=== PATIENT | female | born 1935 | race Caucasian/White ===

== ENCOUNTER 2017-09-04 16:13 | Inpatient (IN) ==
[2017-09-04] MEDS ORDERED: Acetaminophen 325 MG TABLET PO PRN (18:58)
[2017-09-04] MEDS ORDERED: Ondansetron 4 MG/2 ML VIAL IVP PRN (18:58)
[2017-09-04] MEDS ORDERED: *HR* Promethazine 25 MG/ML VIAL IVP PRN (18:58)
[2017-09-04] MEDS ORDERED: Naloxone 0.4 MG/ML INJ IVP PRN (18:58)
--- NOTE | 2017-09-04 19:14 | Internal Med History&Physical ---
Date of Encounter: 09/04/17 Time of Encounter: 18:30 Internal Medicine - H&P: HPI Chief complaint: fall with Left femur fx Admitted From: Emergency Dept Plans for Post Hospital Care: Home History of present illness: Ms. Leahy is a 82 year old female with known hypertension, hyperlipidemia, COPD , past history of smoking and status post bilateral hip replacement who presented to [facility] emergency room after sustaining a fall last night with left leg pain. Patient had a further workup done there left leg x-ray showed a minimally displaced obliquely oriented sub trochanteric fracture of left femur. They did talk to our Ortho Dr. Butler who suggested to admit under hospitalist service and he will do surgery in AM. Pt denied any CP / SOB. Her pain was well controlled with medication. Past Med Surg Social Fam HX - Past Medical History Medical history: COPD, hypertension Additional medical history: spinal stenosis, Psychiatric history: depression - Past Surgical History Surgical History: cholecystectomy Additional surgical history: explor lap, spinal sx, left foot sx x2, bilateral hip replacemnts - Social History Smoking Status: Former smoker Smokeless Tobacco Status: No Alcohol use: occasionally Drug use: none - Additional Family History Additional family history: Family hsitory reviewed and non contribuitory to current problem. Internal Medicine - H&P: Meds 3 Allergy/AdvReac Type Severity Reaction Status Date / Time Penicillins Allergy Hives Unverified 08/03/17 15:34 Sulfa (Sulfonamide Allergy Hives Unverified 08/03/17 15:34 Antibiotics) All Systems PM: A 10-system review of systems was performed and is negative for pertinent findings except as documented above in the HPI. Review of systems: All the systems are reviewed everything is benign except the systems and symptoms I mentioned in the history of present illness - Head Head exam: Present: atraumatic, normal inspection - Neck Neck exam general surgery: Present: supple - Respiratory Respiratory exam: Present: decreased breath sounds, rales, respiratory distress. Absent: rhonchi, wheezes - Cardiovascular Cardiovascular exam: Present: RRR, +S1, +S2. Absent: tachycardia - GI/Abdominal GI/Abdominal exam: Present: normal bowel sounds, soft. Absent: rebound, rigid, tenderness - Extremities Exam Extremities exam: Present: tenderness. Absent: calf tenderness, pedal edema - Back Exam Back exam: Absent: CVA tenderness (L), CVA tenderness (R) - Neurological Exam Neurological exam: Present: alert, oriented X3 - Psychiatric Psychiatric exam: Present: normal affect, normal mood - Skin Skin exam: Absent: rash Internal Med - H&P Results - Labs CBC & Chem 7: 09/05/17 04:16 09/05/17 04:16 - Assessment and plan (1) Left displaced femoral neck fracture Current Visit: Yes Status: Acute Assessment and plan: Place the pt into Med Surg for observation Ortho Dr. Butler already consulted by [facility] ER staff NPO after mid night Started on PO analgesics PRN Will obtain EKG for pre op work up Will obtain 2 D Echo too since pt have some ?? CHF Will get pre op clearence CXR also ordered lab work CBC, BMP (2) HTN (hypertension) Current Visit: Yes Status: Acute Assessment and plan: Resumed all home meds Qualifiers: Hypertension type: essential hypertension Qualified Code(s): I10 - Essential (primary) hypertension (3) HLD (hyperlipidemia) Current Visit: Yes Status: Acute Assessment and plan: resumed home med statin Qualifiers: Hyperlipidemia type: unspecified Qualified Code(s): E78.5 - Hyperlipidemia , unspecified (4) COPD (chronic obstructive pulmonary disease) Current Visit: Yes Status: Acute Assessment and plan: not in exacerbation resumed home INH Qualifiers: COPD type: unspecified COPD Qualified Code(s): J44.9 - Chronic obstructive pulmonary disease, unspecified - Time Spent With Patient Total time spent is greater than 50% in coordination of care (as documented) at patient's floor/unit and/or counseling patient:
[2017-09-04 19:29] LABS: Basophils % 0.2 %; Eosinophils # 0.1 K/mcL (0.0-0.6); Eosinophils % 0.8 %; Hematocrit 40.5 % (35.3-44.9); Hemoglobin 13.6 g/dL (11.5-15.4); Immature Granulocytes % 0.3 % (0-4); Lymphocytes # 1.8 K/mcL (0.6-4.6); Lymphocytes % 14.7 %; Mean Corpuscular HGB Conc 33.6 g/dL (31.6-35.5); Mean Corpuscular Hemoglobin 31.1 pg (28.0-33.3); Mean Corpuscular Volume 92.7 fL (83.0-100.0); Mean Platelet Volume 8.4 fL (9.4-12.4); Monocytes # 1.5 K/mcL (0.0-1.3); Monocytes % 12.3 %; Neutrophils # 8.6 K/mcL (1.6-8.9); Platelet Count 216 K/mcL (140-400); Red Blood Count 4.37 M/mcL (3.82-4.97); Red Cell Distribution Width 13.3 % (11.5-14.5); Segmented Neutrophils % 71.7 %
[2017-09-04 19:53] LABS: BUN/Creatinine Ratio 15 (6-26); Blood Urea Nitrogen 9 mg/dL (8-23); Calcium 9.4 mg/dL (8.6-10.3); Carbon Dioxide 36 mEq/L (23-29); Chloride 95 mEq/L (98-107); Glucose 126 mg/dL (70-105); Osmolality,Calculated 278 (280-300); Potassium 3.7 mEq/L (3.5-5.1); Sodium 134 mEq/L (136-145); eGFR For African Americans > 60 (> 60); eGFR For Non-African Americans > 60 (> 60)
[2017-09-05] MEDS ORDERED: Ipratropium/Albuterol Neb 3 ML AER PRN (01:25)
[2017-09-05] MEDS ORDERED: COMBIVENT RESPIMAT IH PRN (01:37)
[2017-09-05 05:35] LABS: Basophils % 0.4 %; Eosinophils # 0.1 K/mcL (0.0-0.6); Eosinophils % 0.4 %; Hematocrit 36.5 % (35.3-44.9); Hemoglobin 12.4 g/dL (11.5-15.4); Immature Granulocytes % 0.4 % (0-4); Lymphocytes # 2.3 K/mcL (0.6-4.6); Lymphocytes % 19.8 %; Mean Corpuscular Hemoglobin 31.5 pg (28.0-33.3); Mean Corpuscular Volume 92.6 fL (83.0-100.0); Mean Platelet Volume 9.3 fL (9.4-12.4); Monocytes # 1.3 K/mcL (0.0-1.3); Monocytes % 11.5 %; Neutrophils # 7.7 K/mcL (1.6-8.9); Platelet Count 216 K/mcL (140-400); Red Blood Count 3.94 M/mcL (3.82-4.97); Red Cell Distribution Width 13.3 % (11.5-14.5); Segmented Neutrophils % 67.5 %
[2017-09-05 05:57] LABS: BUN/Creatinine Ratio 17 (6-26); Blood Urea Nitrogen 11 mg/dL (8-23); Carbon Dioxide 33 mEq/L (23-29); Chloride 97 mEq/L (98-107); Glucose 112 mg/dL (70-105); Osmolality,Calculated 278 (280-300); Potassium 3.7 mEq/L (3.5-5.1); Sodium 134 mEq/L (136-145); eGFR For African Americans > 60 (> 60); eGFR For Non-African Americans > 60 (> 60)
--- NOTE | 2017-09-05 08:56 | Orthopedic Consult Note ---
Date of Encounter: 09/05/17 Time of Encounter: 08:55 History of Present Illness HPI: Ms. Leahy is a 82 year old female Status post fall with injury to left hip. Patient status post left hip hemiarthroplasty years ago. Patient complains of pain and inability to ambulate. Physical exam Alert and oriented 3 Left lower extremity Posterior splint Neurovascular intact X-ray left periprosthetic femur fracture with subsidence Recommendation revision left femoral component We reviewed the risks and benefits as well as recovery. All questions were answered. The patient agreed to this treatment plan and appeared to understand the plan is reviewed. Plan is for surgery Thursday after she is cleared medically Past Med Surg Social Fam HX - Past Medical History Medical history: COPD, hypertension Additional medical history: spinal stenosis, Psychiatric history: depression - Past Surgical History Surgical History: cholecystectomy Additional surgical history: explor lap, spinal sx, left foot sx x2, bilateral hip replacemnts - Social History Smoking Status: Former smoker Smokeless Tobacco Status: No Alcohol use: occasionally Drug use: none Medications and Allergies 3 Allergy/AdvReac Type Severity Reaction Status Date / Time Penicillins Allergy Hives Unverified 08/03/17 15:34 Sulfa (Sulfonamide Allergy Hives Unverified 08/03/17 15:34 Antibiotics) All Systems Reviewed: The remainder of the systems were reviewed and are negative Physical Exam - Constitutional Vitals: Temp Pulse Resp BP Pulse Ox 98.7 F 98 16 143/61 90 09/05/17 06:40 09/05/17 06:40 09/05/17 06:40 09/05/17 06:40 09/05/17 06:40 Results - Labs Result Diagrams: 09/05/17 04:16 09/05/17 04:16 Labs: Abnormal lab results WBC 11.4 K/mcL (4.3-11.1) H 09/05/17 04:16 MPV 9.3 fL (9.4-12.4) L 09/05/17 04:16 Sodium 134 mEq/L (136-145) L 09/05/17 04:16 Chloride 97 mEq/L (98-107) L 09/05/17 04:16 Carbon Dioxide 33 mEq/L (23-29) H 09/05/17 04:16 Glucose 112 mg/dL (70-105) H 09/05/17 04:16 Calculated Osmolality 278 (280-300) L 09/05/17 04:16 H & H 09/04/17 09/05/17 Range/Units 19:18 04:16 Hgb 13.6 12.4 (11.5-15.4) g/dL Hct 40.5 36.5 (35.3-44.9) % All other labs normal. Consult Discharge Plan - Plan Referrals: Britney Rangel, CABANA ATTENDANT [Primary Care Provider] -
[2017-09-05] MEDS: *HR* HYDROcodone/Acet 5/325 mg TABLET PO PRN ×2 (13:33→23:37)
--- NOTE | 2017-09-05 16:36 | Internal Med Progress Note ---
Date of Encounter: 09/05/17 Time of Encounter: 12:00 - Assessment and plan (1) Left displaced femoral neck fracture Current Visit: Yes Status: Acute Assessment and plan: left leg x-ray in the emergency room showed a minimally displaced obliquely oriented sub trochanteric fracture of left femur. Orthopedic surgery consulted, plan for surgery on Thursday. Continue pain control with when necessary oxycodone and Tylenol. Bedrest until surgery. Physical and occupational therapy evaluation postop. Supportive care. RCRI risk score is low; low to intermediate risk for noncardiac surgery; echocardiogram shows tachycardia, ejection fraction around 70%, moderate pulmonary hypertension. Check EKG. Start metoprolol for mild resting tachycardia. (2) HTN (hypertension) Current Visit: Yes Status: Chronic Qualifiers: Hypertension type: essential hypertension Qualified Code(s): I10 - Essential (primary) hypertension (3) HLD (hyperlipidemia) Current Visit: Yes Status: Chronic Qualifiers: Hyperlipidemia type: unspecified Qualified Code(s): E78.5 - Hyperlipidemia , unspecified (4) COPD (chronic obstructive pulmonary disease) Current Visit: Yes Status: Chronic Assessment and plan: Not in acute exacerbation. Continue when necessary breathing treatments and supplemental oxygen. Qualifiers: COPD type: unspecified COPD Qualified Code(s): J44.9 - Chronic obstructive pulmonary disease, unspecified - Time Spent With Patient Total time spent is greater than 50% in coordination of care (as documented) at patient's floor/unit and/or counseling patient: - Subjective Interval history: Reports left hip and thigh pain. Associated swelling. No chest pain, shortness of breath, nausea, vomiting, syncope. - Constitutional Vitals: Temp Pulse Resp BP Pulse Ox 98 F 98 16 119/66 92 09/05/17 14:50 09/05/17 14:50 09/05/17 14:50 09/05/17 14:50 09/05/17 14:50 General appearance: Present: A&O X 3, answers questions appropriately - Respiratory Respiratory exam: Present: CTAB. Absent: accessory muscle use, rales, rhonchi, wheezes - Cardiovascular Cardiovascular exam: Present: RRR, +S1, +S2. Absent: diastolic murmur, gallop, rubs, systolic murmur - GI/Abdominal GI/Abdominal exam: Present: normal bowel sounds, soft, no peritoneal signs. Absent: distended, tenderness - Extremities Exam Extremities exam: Present: full ROM (restricted in left hip), warm, radial pulses palpable and symmetrical. Absent: calf tenderness, cyanotic, pedal edema Internal Medicine: Result - Labs CBC & Chem 7: 09/05/17 04:16 09/05/17 04:16 Labs: Short CBC 09/04/17 09/05/17 Range/Units 19:18 04:16 WBC 12.0 H 11.4 H (4.3-11.1) K/mcL Hgb 13.6 12.4 (11.5-15.4) g/dL Hct 40.5 36.5 (35.3-44.9) % Plt Count 216 216 (140-400) K/mcL Neutrophils # 8.6 7.7 (1.6-8.9) K/mcL BMP 09/04/17 09/05/17 19:18 04:16 Sodium 134 L 134 L Potassium 3.7 3.7 Chloride 95 L 97 L Carbon Dioxide 36 H 33 H BUN 9 11 Creatinine 0.59 L 0.66 Glucose 126 H 112 H Calcium 9.4 9.0 - Impressions Impressions Chest X-Ray 09/04/17 19:07 IMPRESSION: No acute abnormality detected. D/ / Brennen Richardson MD / Brennen Richardson MD Interpreting Provider: Brennen Richardson MD Echocardiogram 09/04/17 19:07 Impressions: Tachycardic, HR 100-110's. LVEF 70%. Mild increased LVOT gradient at rest, PG 12 mmHg. Normal right ventricular structure and function. Mild tricuspid regurgitation. Moderate pulmonary hypertension. Left Ventricular Wall Motion: Rest Echo Findings The apex, apical inferior, mid inferior, basal inferior, apical anterior, mid anterior and basal anterior bender were not visualized. All other wall segments showed normal motion. Findings: Study Quality * Technically adequate exam. ECG Findings * Sinus tachycardia. Left Ventricle * LVEF 70%. * Normal LV chamber size and wall thickness. * Mild increased LVOT gradient at rest, PG 12 mmHg. Right Ventricle * Normal right ventricular structure and function. Right Atrium * Normal right atrial size. Left Atrium * Normal left atrial size. Aortic Valve * No aortic regurgitation. * Aortic valve not well visualized. * No aortic stenosis. Mitral Valve * No mitral regurgitation. * No mitral stenosis. * Normal mitral valve structure. Tricuspid Valve * Tricuspid valve not well visualized. * Mild tricuspid regurgitation. * Estimated RA pressure is 3 mmHg. * Estimated RVSP is 56 mmHg. * Moderate pulmonary hypertension. Pulmonic Valve * Pulmonic valve is not well visualized. * No pulmonic stenosis. * No pulmonic regurgitation. Pulmonary Artery * Pulmonary artery not well visualized. Aorta * Normally sized aortic root. Pericardium * There is no pericardial effusion present. Interatrial Septum * No evidence of PFO by color Doppler. IVC * Normal IVC dimensions and inspiratory collapse. Consult Discharge Plan - Plan Referrals: Britney Rangel, RAILROAD CAR REPAIR SUPERVISOR [Primary Care Provider] -
[2017-09-05] MEDS ORDERED: cloNIDine HCl 0.1 MG TABLET PO SCH (16:45)
[2017-09-05] MEDS: *HR* Heparin 5,000 UNIT/ML VIAL SQ SCH (23:38)
[2017-09-06] MEDS: Metoprolol XL (24 HR) Succ 50 MG TAB.ER.24H PO SCH (08:40)
[2017-09-06] MEDS: *HR* Heparin 5,000 UNIT/ML VIAL SQ SCH ×2 (08:41→18:43)
[2017-09-06] MEDS: *HR* HYDROcodone/Acet 5/325 mg TABLET PO PRN ×3 (08:44→21:11)
--- NOTE | 2017-09-06 14:23 | Orthopedics Progress Note ---
Date of Encounter: 09/06/17 Time of Encounter: 14:20 Subjective Principal diagnosis: Left hip periprosthetic fracture Interval history: Patient comfortable The patient sustained a left hip arthroplasty periprosthetic fracture 2 days ago She was transferred from also ER with a long posterior splint going from the knee to the foot The patient does not know why this was applied Left lower extremity: Left hip, no ecchymosis, mild tenderness, no swelling The posterior splint was then wrapped, there is no swelling but she is tender diffusely along the anterior leg Grossly neurovascular intact Assessment: Left hip periprosthetic fracture, left leg pain Plan: The patient is scheduled for a left hip revision arthroplasty tomorrow We will obtain x-rays of the left leg today. Objective Vital signs: Vital Signs Temp Pulse Resp BP Pulse Ox 09/06/17 10:38 98.3 F 72 17 116/67 98 09/06/17 07:00 97.7 F 86 16 110/62 92 09/06/17 04:04 97.7 F 88 14 96/62 91 09/05/17 18:34 98.1 F 15 100/54 92 09/05/17 14:50 98 F 98 16 119/66 92 Intake and Output 09/05/17 09/06/17 09/06/17 23:59 07:59 15:59 Intake Total 620 / 620 300 / 300 480 / 480 Output Total 0 / 0 200 / 200 300 / 300 Balance 620 / 620 100 / 100 180 / 180 Intake: Oral 620 / 620 300 / 300 480 / 480 Output: Urine 0 / 0 200 / 200 300 / 300 Other: Meal Dinner Lunch Percent of Meal Consumed 100% 100% # Voids 1 # Urine Diapers 1 # Bowel Movements 0 0 Weight 64.6 kg Patient Weight 09/06/17 23:59 Weight 64.6 kg - Labs CBC & BMP: 09/05/17 04:16 09/05/17 04:16 Labs: Abnormal lab results WBC 11.4 K/mcL (4.3-11.1) H 09/05/17 04:16 MPV 9.3 fL (9.4-12.4) L 09/05/17 04:16 Sodium 134 mEq/L (136-145) L 09/05/17 04:16 Chloride 97 mEq/L (98-107) L 09/05/17 04:16 Carbon Dioxide 33 mEq/L (23-29) H 09/05/17 04:16 Glucose 112 mg/dL (70-105) H 09/05/17 04:16 Calculated Osmolality 278 (280-300) L 09/05/17 04:16 Consult Discharge Plan - Plan Referrals: Britney Rangel, DRINK WAITER [Primary Care Provider] -
--- NOTE | 2017-09-06 15:33 | Internal Med Progress Note ---
Date of Encounter: 09/06/17 Time of Encounter: 11:40 - Assessment and plan (1) Left displaced femoral neck fracture Current Visit: Yes Status: Acute Assessment and plan: left leg x-ray in the emergency room showed a minimally displaced obliquely oriented sub trochanteric fracture of left femur. Orthopedic surgery consulted, plan for revision left hip arthroplasty tomorrow. Continue pain control with when necessary oxycodone and Tylenol. Bedrest until surgery. Physical and occupational therapy evaluation postop. Supportive care. RCRI risk score is low; low to intermediate risk for noncardiac surgery; echocardiogram shows tachycardia, ejection fraction around 70%, moderate pulmonary hypertension. EKG reviewed-shows normal sinus rhythm, Q waves in inferior leads, right bundle branch block, left anterior fascicular block. EKG from 08/03/2017 showed normal sinus rhythm, old inferior NE. We will discuss with cardiology regarding the need for further testing. (2) HTN (hypertension) Current Visit: Yes Status: Chronic Assessment and plan: Blood pressure well controlled. Continue current medications. Qualifiers: Hypertension type: essential hypertension Qualified Code(s): I10 - Essential (primary) hypertension (3) HLD (hyperlipidemia) Current Visit: Yes Status: Chronic Qualifiers: Hyperlipidemia type: unspecified Qualified Code(s): E78.5 - Hyperlipidemia , unspecified (4) COPD (chronic obstructive pulmonary disease) Current Visit: Yes Status: Chronic Qualifiers: COPD type: unspecified COPD Qualified Code(s): J44.9 - Chronic obstructive pulmonary disease, unspecified - Time Spent With Patient Total time spent is greater than 50% in coordination of care (as documented) at patient's floor/unit and/or counseling patient: - Subjective Interval history: Reports no change in left hip and thigh pain. No chest pain, shortness of breath, nausea, vomiting. Awaiting orthopedic surgery tomorrow. - Constitutional Vitals: Temp Pulse Resp BP Pulse Ox 98.3 F 72 17 116/67 98 09/06/17 10:38 09/06/17 10:38 09/06/17 10:38 09/06/17 10:38 09/06/17 10:38 General appearance: Present: A&O X 3, answers questions appropriately - Respiratory Respiratory exam: Present: CTAB. Absent: accessory muscle use, rales, rhonchi, wheezes - Cardiovascular Cardiovascular exam: Present: RRR, +S1, +S2. Absent: diastolic murmur, gallop, rubs, systolic murmur - GI/Abdominal GI/Abdominal exam: Present: normal bowel sounds, soft, no peritoneal signs. Absent: distended, tenderness - Extremities Exam Extremities exam: Present: warm, radial pulses palpable and symmetrical. Absent : calf tenderness, cyanotic, pedal edema Additional comments: Left lower extremity in soft cast and Saroj wrap Internal Medicine: Result - Labs CBC & Chem 7: 09/05/17 04:16 09/05/17 04:16 - Impressions Impressions Tibia/Fibula X-Ray 09/06/17 14:26 IMPRESSION: No acute fracture. D/ / Kelsi Beaver Cha, MD / Kelsi Beaver Cha, MD Interpreting Provider: Kelsi Beaver Cha, MD Consult Discharge Plan - Plan Referrals: Britney Rangel VISUAL ARTIST [Primary Care Provider] -
[2017-09-06] MEDS ORDERED: Ketorolac 15 MG/ML VIAL IVP ONE (20:26)
[2017-09-06] MEDS: cloNIDine HCl 0.1 MG TABLET PO SCH (21:12)
[2017-09-07] MEDS: *HR* Heparin 5,000 UNIT/ML VIAL SQ SCH ×3 (00:15→15:02)
[2017-09-07] MEDS: D5% in 0.45% NACL 1,000 ML IVC SCH ×2 (00:43→15:08)
[2017-09-07 02:46] LABS: Basophils % 0.3 %; Eosinophils # 0.2 K/mcL (0.0-0.6); Eosinophils % 1.6 %; Hematocrit 33.5 % (35.3-44.9); Hemoglobin 10.9 g/dL (11.5-15.4); Immature Granulocytes % 0.4 % (0-4); Lymphocytes # 1.2 K/mcL (0.6-4.6); Lymphocytes % 10.8 %; Mean Corpuscular HGB Conc 32.5 g/dL (31.6-35.5); Mean Corpuscular Hemoglobin 30.1 pg (28.0-33.3); Mean Corpuscular Volume 92.5 fL (83.0-100.0); Mean Platelet Volume 8.7 fL (9.4-12.4); Monocytes # 1.1 K/mcL (0.0-1.3); Monocytes % 9.6 %; Neutrophils # 8.8 K/mcL (1.6-8.9); Platelet Count 188 K/mcL (140-400); Red Blood Count 3.62 M/mcL (3.82-4.97); Red Cell Distribution Width 13.1 % (11.5-14.5); Segmented Neutrophils % 77.3 %
[2017-09-07 03:06] LABS: BUN/Creatinine Ratio 17 (6-26); Blood Urea Nitrogen 12 mg/dL (8-23); Calcium 9.2 mg/dL (8.6-10.3); Carbon Dioxide 32 mEq/L (23-29); Chloride 95 mEq/L (98-107); Glucose 162 mg/dL (70-105); Osmolality,Calculated 279 (280-300); Potassium 3.7 mEq/L (3.5-5.1); Sodium 133 mEq/L (136-145); eGFR For African Americans > 60 (> 60); eGFR For Non-African Americans > 60 (> 60)
[2017-09-07 05:32] LABS: Bilirubin,Urine Moderate (Negative); Blood,Urine Small (Negative); Clarity,Urine Cloudy (Clear); Color,Urine Red (Yellow); Glucose,Urine (UA) Normal (Normal); Ketones,Urine Trace mg/dL (Negative); Leukocyte Esterase,Urine Moderate (Negative); Nitrite,Urine Positive (Negative); PH,Urine 5.5 pH Units (5.0-8.0); Protein,Urine 30 mg/dL (Neg-Trace); Specific Gravity,Urine > 1.030 (1.010-1.025); Urobilinogen,Urine Normal (Normal)
[2017-09-07 05:34] LABS: Bacteria,Urine Moderate per hpf (None-Few); Hyaline Casts,Urine Moderate per lpf (None-Few); RBC,Urine 15-30 per hpf (0-3); Squamous Epithelial Cell,Urine Many per lpf (None-Few); WBC,Urine TNTC per hpf (0-3)
[2017-09-07] MEDS: Metoprolol XL (24 HR) Succ 50 MG TAB.ER.24H PO SCH (09:16)
--- NOTE | 2017-09-07 11:54 | Cardiology Consult Note ---
Date of Encounter: 09/07/17 Time of Encounter: 09:30 Assessment and Plan (1) Preop cardiovascular exam Current Visit: Yes Status: Acute Pt is pre-op for Left Hip Leif-arthroplasty revision. EKG: NSR, rate 93, WI 161, QRS 129, QTc 416, R-axis -52, RBBB, and LAFB. TTE: LVEF 70%, LVOT gradient mildly increased, mild tricuspid regurgitation, moderate pulmonary hypertension. Acutely asymptomatic. Recommendations: No need for further testing in advance of surgery; okay for procedure from cardiac standpoint. Patient will need to continue to follow with her OP first coat operator upon discharge. (2) Abnormal EKG Current Visit: Yes Status: Acute as above Discussion w patient/family: The assessment and plan as outlined above was discussed with the patient and/or family members who expressed understanding and agreement. All questions were answered. Thank you for involving us in the care of your patient. Please call with any questions. History of Present Illness History of present illness: Ms. Leahy is a 82 year old female with history of unspecified tachycardia, HTN , HLP, COPD, and smoking (50-60 pack years) who is admitted after a mechanical fall resulting in left subtrochanteric femur fracture; current plan is to revise in OR this afternoon. Cardiology consulted for advice regarding need for further testing given RBBB & LAFB compared to EKG done in late July,. Patient has no acute cardiac symptoms except for "racing heart" which she tells me has been going on for decades; denies any syncope, lightheadedness, chest pain, shortness of breath, nausea, vomiting, or pedal edema. She has had "monitors" in the past but she is unable to specify when or what diagnoses were obtained. Denies known history of [place], specific dysrhythmias, valvular heart disease, CHF, or cardiomyopathy. No history of CABG or LHC. Is following with first coat operator in [place] for further evaluation of abnormal EKG and tachycardia. Past Med Surg Social Fam HX - Past Medical History Source: patient Medical history: COPD, hypertension Additional medical history: spinal stenosis, Psychiatric history: depression - Past Surgical History Surgical History: cholecystectomy, hip replacement Additional surgical history: explor lap, spinal sx, left foot sx x2, bilateral hip replacemnts - Social History Smoking Status: Former smoker Smokeless Tobacco Status: No Alcohol use: occasionally Drug use: none Medications and Allergies Docusate Sodium [Dulcolax Stool Softener] 200 mg PO DAILY 09/05/17 [History] Duloxetine HCl 30 mg PO QAM 09/05/17 [History] Losartan/Hydrochlorothiazide [Losartan-Hctz 100-12.5 mg Tab] 1 each PO QAM 09/05 [History] Metoprolol Succinate 100 mg PO QAM 09/05/17 [History] Pravastatin Sodium [Pravachol] 20 mg PO QAM 09/05/17 [History] Ranitidine HCl [Acid User Experience Researcher] 150 mg PO BID 09/05/17 [History] cloNIDine HCl [Clonidine HCl] 0.1 tab PO HS 09/05/17 [History] HYDROcodone/Acet 5/325 mg [[place] 5-325 mg] 1 tab PO TID PRN 09/07/17 [History] LORazepam [Ativan] 1 mg PO BID 09/07/17 [History] 3 Allergy/AdvReac Type Severity Reaction Status Date / Time Sulfa (Sulfonamide Allergy Hives Verified 09/06/17 18:52 Antibiotics) Penicillins AdvReac Hives Verified 09/06/17 18:52 All Systems Review: The remainder of the systems were reviewed and are negative Physical Examination Vital Signs, Last 4 Hours Temp Pulse Resp BP Pulse Ox 09/07/17 10:39 98.2 F 91 16 126/65 91 09/07/17 08:14 98.2 F 104 16 130/68 91 CONSTITUTIONAL: Alert and oriented X3, well-nourished, well appearing, in no apparent distress HEAD: Normocephalic; atraumatic. EYES: PER (3mm), no scleral icterus, no drainage, no conjunctival injection NOSE: The nose is normal in appearance without rhinorrhea Oropharynx: pink/moist, no tonsillar edema/erythema/exudates RESP: NRD without use of accessory musculature, does have diffuse end expiratory wheezes, no rhonchi/rales heard CARD: mildly tachycardic, no murmurs or extra heart sounds SKIN: normal appearance, no pallor/diaphoresis,mottling,jaundice,cyanosis EXT: DP/Rad pulses 2+ and symmetrical; no pedal edema; no other lesions seen PSYCH: appropriate mood/affect Results 09/07/17 02:35 09/07/17 02:35 Lab Results 09/07/17 09/07/17 02:35 02:35 WBC 11.4 H Hgb 10.9 L D Hct 33.5 L Plt Count 188 Sodium 133 L Potassium 3.7 Chloride 95 L Carbon Dioxide 32 H BUN 12 Creatinine 0.71 Glucose 162 H Calcium 9.2 Consult Discharge Plan - Plan Referrals: Britney Rangel, BAIL AGENT [Primary Care Provider] -
--- NOTE | 2017-09-07 13:31 | Orthopedics Progress Note ---
Date of Encounter: 09/07/17 Time of Encounter: 08:20 - Assessment and Plan (1) Periprosthetic fracture around internal prosthetic hip joint Current Visit: Yes Status: Acute Qualifiers: Encounter type: initial encounter Laterality: left Qualified Code(s): M97.02XA - Periprosthetic fracture around internal prosthetic left hip joint, initial encounter; T84.041A - Periprosthetic fracture around internal prosthetic left hip joint, initial encounter Subjective Principal diagnosis: Left hip periprosthetic fracture Interval history: The patient sustained a left hip arthroplasty periprosthetic fracture after fall per patient on 09/04/17. She was transferred from ER with a long posterior splint going from the knee to the foot; the patient does not know why this was applied however states that when removed her pain increased however states that at present time her pain is well controlled so long as she does not move the LLE. She admits to a h/o repetitive falls over the past appx 6-8 months with per patient unknown cause. She states that this past January 2017 she fell and sustained a pelvic fracture for which she was non-ambulatory per patient for 3 months. In discussing this fracture with patient, she is unable to define if she has in fact been diagnosed with osteoporosis. Based on these repeat falls with major fractures, significant concern exists. She states her PCP is Britney Rangel CNP at [facility]. She also admits that she has been dealing with a left 5th digit toe issue and has been scheduled for amputation with Dr. Woods podiatry appx 3 times however has had to cancel all surgery secondary to major falls prior to each surgery. She is not able to identify the cause of the falls. She admits to a cardiac history of abnormal EKGs for which she was scheduled to seen an OP canary raiser this week actually. EKG from 09/05 demonstrates new abnormalities compared to her most recent preop EKG. On exam patient resting comfortably in bed. Alert and oriented x 3. No family at bedside. Left lower extremity: Left hip, no ecchymosis, mild tenderness, no swelling. LLE mildly rotated, may be secondary to patient pelvis orientation. No calf tenderness noted to b/l extremities. RLE ROM full and intact. Grossly neurovascular intact. Assessment: Left hip periprosthetic fracture, left leg pain Plan: The patient is scheduled for a left hip revision femoral stem today 09/07 Continue NPO Will discuss postoperatively with PCP re: osteoporosis diagnosis and treatment. Will notify Dr. Woods podiatry of patient status and see if he would like to see patient during this admission. Will discuss EKG findings with Dr. Roman hospitalist and see about cardio evaluation/recommendations. Objective Vital signs: Vital Signs Temp Pulse Resp BP Pulse Ox 09/07/17 10:39 98.2 F 91 16 126/65 91 09/07/17 08:14 98.2 F 104 16 130/68 91 09/07/17 05:10 98.0 F 89 15 155/89 92 09/06/17 19:11 98.3 F 91 15 126/69 93 Intake and Output 09/06/17 09/07/17 09/07/17 23:59 07:59 15:59 Intake Total 0 / 0 0 / 0 Output Total 0 / 0 0 / 0 250 / 250 Balance 0 / 0 0 / 0 -250 / -250 Intake: Oral 0 / 0 0 / 0 Output: Urine 0 / 0 0 / 0 Catheter 250 / 250 Other: Meal npo # Urine Diapers 2 Weight 65.3 kg Blood Glucose* 129 Patient Weight 09/07/17 23:59 Weight 65.3 kg - Labs CBC & BMP: 09/07/17 02:35 09/07/17 02:35 Labs: Abnormal lab results WBC 11.4 K/mcL (4.3-11.1) H 09/07/17 02:35 RBC 3.62 M/mcL (3.82-4.97) L 09/07/17 02:35 Hgb 10.9 g/dL (11.5-15.4) L D 09/07/17 02:35 Hct 33.5 % (35.3-44.9) L 09/07/17 02:35 MPV 8.7 fL (9.4-12.4) L 09/07/17 02:35 Sodium 133 mEq/L (136-145) L 09/07/17 02:35 Chloride 95 mEq/L (98-107) L 09/07/17 02:35 Carbon Dioxide 32 mEq/L (23-29) H 09/07/17 02:35 Glucose 162 mg/dL (70-105) H 09/07/17 02:35 POC Glucose 129 mg/dL (70-99) H 09/07/17 11:28 Calculated Osmolality 279 (280-300) L 09/07/17 02:35 Urine Color Red (Yellow) A 09/07/17 04:41 Urine Clarity Cloudy (Clear) A 09/07/17 04:41 Ur Specific [place] > 1.030 (1.010-1.025) H 09/07/17 04:41 Urine Protein 30 mg/dL (Neg-Trace) H 09/07/17 04:41 Urine Ketones Trace mg/dL (Negative) H 09/07/17 04:41 Urine Blood Small (Negative) H 09/07/17 04:41 Urine Nitrite Positive (Negative) A 09/07/17 04:41 Urine Bilirubin Moderate (Negative) H 09/07/17 04:41 Ur Leukocyte Esterase Moderate (Negative) H 09/07/17 04:41 Urine Microscopic RBC 15-30 per hpf (0-3) H 09/07/17 04:41 Urine Microscopic WBC TNTC per hpf (0-3) H 09/07/17 04:41 Ur Squamous Epith Cells Many per lpf (None-Few) H 09/07/17 04:41 Urine Bacteria Moderate per hpf (None-Few) H 09/07/17 04:41 Hyaline Casts Moderate per lpf (None-Few) H 09/07/17 04:41 - VTE Documentation of Mechanical Device: Intermittent pneumatic compression device Consult Discharge Plan - Plan Referrals: Britney Ranegl, ORANGE PICKER MACHINE OPERATOR [Primary Care Provider] -
[2017-09-07] MEDS: *HR* HYDROcodone/Acet 5/325 mg TABLET PO PRN (15:08)
--- NOTE | 2017-09-07 16:29 | Internal Med Progress Note ---
Date of Encounter: 09/07/17 Time of Encounter: 11:30 - Assessment and plan (1) Left displaced femoral neck fracture Current Visit: Yes Status: Acute Assessment and plan: left leg x-ray in the emergency room showed a minimally displaced obliquely oriented sub trochanteric fracture of left femur. Orthopedic surgery consulted, plan for revision left hip arthroplasty today. Continue pain control with when necessary oxycodone and Tylenol. Bedrest until surgery. Physical and occupational therapy evaluation postop. Supportive care. RCRI risk score is low; low to intermediate risk for noncardiac surgery; Cardiology recommendations appreciated- no further testing; (2) HTN (hypertension) Current Visit: Yes Status: Chronic Assessment and plan: Blood pressure well controlled. Continue current medications. Qualifiers: Hypertension type: essential hypertension Qualified Code(s): I10 - Essential (primary) hypertension (3) HLD (hyperlipidemia) Current Visit: Yes Status: Chronic Qualifiers: Hyperlipidemia type: unspecified Qualified Code(s): E78.5 - Hyperlipidemia , unspecified (4) COPD (chronic obstructive pulmonary disease) Current Visit: Yes Status: Chronic Assessment and plan: Not in acute exacerbation. Continue when necessary breathing treatments and supplemental oxygen. Qualifiers: COPD type: unspecified COPD Qualified Code(s): J44.9 - Chronic obstructive pulmonary disease, unspecified - Time Spent With Patient Total time spent is greater than 50% in coordination of care (as documented) at patient's floor/unit and/or counseling patient: - Subjective Interval history: Reports no change in left hip and thigh pain. Off ADALI wrap now; cleared for surgery; No chest pain, shortness of breath, nausea, vomiting. - Constitutional Vitals: Temp Pulse Resp BP Pulse Ox 98.3 F 97 18 118/64 95 09/07/17 14:43 09/07/17 14:43 09/07/17 14:43 09/07/17 14:43 09/07/17 14:43 General appearance: Present: A&O X 3, answers questions appropriately - Respiratory Respiratory exam: Present: CTAB. Absent: accessory muscle use, rales, rhonchi, wheezes - Cardiovascular Cardiovascular exam: Present: RRR, +S1, +S2. Absent: diastolic murmur, gallop, rubs, systolic murmur Internal Medicine: Result - Labs CBC & Chem 7: 09/07/17 02:35 09/07/17 02:35 Labs: Short CBC 09/07/17 Range/Units 02:35 WBC 11.4 H (4.3-11.1) K/mcL Hgb 10.9 L D (11.5-15.4) g/dL Hct 33.5 L (35.3-44.9) % Plt Count 188 (140-400) K/mcL Neutrophils # 8.8 (1.6-8.9) K/mcL BMP 09/07/17 02:35 Sodium 133 L Potassium 3.7 Chloride 95 L Carbon Dioxide 32 H BUN 12 Creatinine 0.71 Glucose 162 H Calcium 9.2 Urine 09/07/17 Range/Units 04:41 Urine Color Red A (Yellow) Urine Clarity Cloudy A (Clear) Urine pH 5.5 (5.0-8.0) pH Units Ur Specific [place] > 1.030 H (1.010-1.025) Urine Protein 30 H (Neg-Trace) mg/dL Urine Glucose (UA) Normal (Normal) mg/dL - VTE Documentation of Mechanical Device: Intermittent pneumatic compression device Consult Discharge Plan - Plan Referrals: Britney Rangel, TOLL BOOTH OPERATOR [Primary Care Provider] -
--- NOTE | 2017-09-07 16:57 | Anesthesia Evaluation PreOp ---
Date of Encounter: 09/07/17 Time of Encounter: 18:08 - Past History Planned Operation: REVISION OF LEFT EVETTE FEMORAL COMPONENT Cardiac History: HTN, Hyperlipidemia Pulmonary History: COPD CIGAR HEAD HOLER History: Other (Depression) Other Medical History: Denies Any Significant HX, GERD (Controlled) Anesthesia History: No Prior Anesthetic Complications, Past Anesthesia Alcohol Use: occasionally Drug use: none Medications and Allergies Docusate Sodium [Dulcolax Stool Softener] 200 mg PO DAILY 09/05/17 [History] Duloxetine HCl 30 mg PO QAM 09/05/17 [History] Losartan/Hydrochlorothiazide [Losartan-Hctz 100-12.5 mg Tab] 1 each PO QAM 09/05 [History] Metoprolol Succinate 100 mg PO QAM 09/05/17 [History] Pravastatin Sodium [Pravachol] 20 mg PO QAM 09/05/17 [History] Ranitidine HCl [Acid Transportation Aid] 150 mg PO BID 09/05/17 [History] cloNIDine HCl [Clonidine HCl] 0.1 tab PO HS 09/05/17 [History] HYDROcodone/Acet 5/325 mg [[place] 5-325 mg] 1 tab PO TID PRN 09/07/17 [History] LORazepam [Ativan] 1 mg PO BID 09/07/17 [History] 3 Allergy/AdvReac Type Severity Reaction Status Date / Time Sulfa (Sulfonamide Allergy Hives Verified 09/06/17 18:52 Antibiotics) Penicillins AdvReac Hives Verified 09/06/17 18:52 - Meds/Allergy Pre-op Review Medications Reviewed: Yes Allergies Reviewed: Yes Beta Blockers on Current Med List: Yes Anesthesia Results - Labs 09/07/17 02:35 09/07/17 02:35 - Imaging Additional studies: TTE 09/04/2017: Tachycardic, HR 100-110's. LVEF 70%. Mild increased LVOT gradient at rest, PG 12 mmHg. Normal right ventricular structure and function. Mild tricuspid regurgitation. Moderate pulmonary hypertension. Estimated RVSP is 56 mmHg. CARDIOLOGY CONSULTATION 09/07/2017: Patient seen and examined earlier today. Reports last stress test about 5 years ago, negative for ischemia. Prior to fall, able to perform 4 METS of activity without chest pain or discomfort. LVEF normal at 1 TTE. Patient appears to be an acceptable risk candidate for this moderate risk orthopedic procedure. ECG demonstrates sinus rhythm, right bundle branch block, left anterior fascicular block. She denies any history of syncope or near syncope. Reports falls are mechanical. Patient will need ongoing outpatient follow-up to monitor conduction disease - sees Dr. Keenan at [facility]. No further inpatient cardiology testing appears to be necessary. Cardiology will sign off. Please call with any questions or concerns. Anesthesia Exam O2 Sat Weight 65.3 kg Height 1.63 m BMI 25 Vital Signs/O2 Sat, Most Current Temp Pulse Resp BP Pulse Ox 98.3 F 97 18 118/64 95 09/07/17 14:43 09/07/17 14:43 09/07/17 14:43 09/07/17 14:43 09/07/17 14:43 NPO (# of Hours): >MN - HEENT Mallampati: II Teeth: Missing Denture Type: Upper: Complete, Lower: Partial (Implanted bridge lower inc & premolars) - CIGAR HEAD HOLER LOC: Oriented - Cardiac Rhythm: Regular - Pulmonary Breath Sounds: bilateral Clear Respiratory Effort: Symmetrical Anesthesia Assess/Plan ASA Score: 3 Modified Ashlyn Scale for Level of Consciousness: Cooperative, oriented, and tranquil Anesthetic Plan: General Autologous Blood: Yes (Possible) Monitoring Plan: Standard Monitors, A-Line (Possible) Recovery Plan: PACU Anes Supervising Prov Stmt: Patient is post EVETTE, fall with periprosthetic femur fracture Progressive drop in hemoglobin. Stat T&S ordered. Patient informed and consented. Risks, benefits, and alternatives discussed. Patient wishes to proceed.
[2017-09-07] MEDS ORDERED: *HR* Propofol 200 MG/20 ML VIAL IVP ONE (18:19)
[2017-09-07] MEDS ORDERED: *HR* FentaNYL (PF) 100 MCG/2 ML VIAL ONE ×2 (18:19→20:04)
[2017-09-07] MEDS ORDERED: Lidocaine -MPF 2% 2 ML VIAL ONE (18:20)
[2017-09-07] MEDS ORDERED: *HR* Succinylcholine 200 MG/10 ML VIAL IVP ONE (18:20)
[2017-09-07] MEDS ORDERED: Ethanol\\Acetic Acid\\Na Ace\\Ben 1,000 ML IRRIG.SOLN IR ONE (18:25)
[2017-09-07] MEDS ORDERED: Clindamycin 900 MG/50 ML 900 MG/50 ML IV.SOLN IVPB ONE (19:12)
[2017-09-07] MEDS ORDERED: Lidocaine -MPF 4% 5 ML AMPUL ONE (19:40)
[2017-09-07] MEDS ORDERED: Dexamethasone 4 MG/ML VIAL ONE (19:55)
[2017-09-07] MEDS ORDERED: Ondansetron 4 MG/2 ML VIAL ONE (19:55)
[2017-09-07] MEDS ORDERED: Acetaminophen IV 1,000 MG/100 ML INFUS..BTL ONE (20:16)
--- NOTE | 2017-09-07 20:35 | Orthopedic Operative Note ---
Date of procedure: 09/07/17 Pre-op diagnosis: Periprosthetic left hip fracture Post-op diagnosis: same Procedure: Procedure: Left Revision femoral component Estimated blood loss: 200 cc Hardware: Maritza Metal replacement. 15 mm x 155 mm church stem 25 mm +0 cone body +0 sleeve 46 mm unipolar head, one Arthrex cerclage fiber tape Procedural Notes: Periprosthetic left femur fracture with femoral component subsidence Operative procedure: The patient was brought to the operating room and placed on the operating room table. After general anesthesia was administered the patient was placed in the lateral decubitus position with the operative leg up. All pressure points were padded appropriately and the head was stabilized in the neutral position. The operative extremity was prepped and draped in the sterile surgical fashion patient received IV antibiotic prior to skin incision. A standard posterior approach is made to the operative hip, through the old incision. The incision was made through the skin and subcutaneous tissue hemostasis was obtained with Bovie cautery. Using careful sharp dissection the fascia was identified and incised patient had significant scar tissue within the posterior aspect. This was resected. Cultures were obtained at the level hip joint, normal post fracture hematoma encountered. The hip was dislocated and Hip was brought into internal rotation. Soft tissue was removed from around the proximal femur. The femoral component was loose the proximal fracture fragment was retracted to allow access to the insertion screw. The femoral component was removed without incident. The distal femur was reamed up to 15 x 155 mm. A 15 x 155 mm modular church stem was seated. Trial reduction with a 25 mm cone body in 20 degrees of anteversion with a 46+0 unipolar head revealed good stability. Trial was removed, 25 mm cone body was impacted in place 20 degrees of anteversion 46 mm unipolar head with a +0 sleeve was impacted in place hip was reduced patient had excellent motion and stability. Proximal fracture was secured with one Arthrex cerclage fiber tape. Intraoperative x-rays showed good position of the component and the fracture reduction. The hip was irrigated out with an antibacterial solution. It was irrigated out with 2 L of pulse irrigation. Fascia was closed with a running #2 PDS suture. The deep tissue was irrigated and closed deep with #1 PDS suture superficially with 0 PDS suture and skin was closed with Dermabond and skin debi. The patient was placed in a sterile dressing and abduction pillow. The patient was extubated and transferred to the recovery room in stable condition. Anesthesia: GETA Surgeon: Logan Clales Was there an psychiatric assistant present: No Estimated blood loss (cc): 200 Condition: stable Disposition: PACU
[2017-09-07] MEDS: *HR* Morphine 2 MG/ML SYRINGE IVP PRN ×4 (20:54→21:24)
[2017-09-07] MEDS: cloNIDine HCl 0.1 MG TABLET PO SCH (21:10)
[2017-09-07 21:29] LABS: Hemoglobin 10.1 g/dL (11.5-15.4)
--- NOTE | 2017-09-07 23:10 | Anesthesia Evaluation Post Op ---
Date of Encounter: 09/07/17 Time of Encounter: 21:40 - Vital Signs Vital Signs: Vital Signs/O2 Sat/Glucose, Most Current Temp Pulse Resp BP Pulse Ox 09/07/17 21:37 98.3 F 99 20 155/70 95 09/07/17 21:27 98 20 157/76 95 09/07/17 21:17 98 20 158/73 95 09/07/17 21:07 98.6 F 98 20 156/78 94 09/07/17 20:57 98 20 146/78 95 09/07/17 20:47 98 20 138/90 94 09/07/17 20:37 101.6 F H 93 20 164/78 96 - Lungs Lungs: Clear Ascult./Percussion - Airway Airway: Non-obstructed - Cardiovascular Regular Rate - Mental Status Mental Status: Alert & Oriented, Answers Appropriately - Pain Pain Scale: 1 Pain Scale used: [place] (Faces) - Nausea Vomiting Nausea Vomiting: Not Present - Hydration Hydration: Tolerates oral liquids - Discharge PostOp Status: Transfer Patient to floor Anes Supervising Prov Stmt: Pt seen/evaluated, VSS and pt has met criteria for discharge to floor. - MD Bina
[2017-09-07] MEDS ORDERED: Naloxone 0.4 MG/ML INJ IVP PRN (23:50)
[2017-09-07] MEDS ORDERED: Temazepam 15 MG CAPSULE PO PRN (23:50)
[2017-09-07] MEDS ORDERED: MOM Conc 10 ML UD.LIQ PO PRN (23:50)
[2017-09-07] MEDS ORDERED: Ondansetron 4 MG/2 ML VIAL IVP PRN (23:50)
[2017-09-07] MEDS ORDERED: Acetaminophen 325 MG TABLET PO PRN (23:50)
[2017-09-07] MEDS ORDERED: *HR* Promethazine 25 MG/ML VIAL IVP PRN (23:50)
[2017-09-07] MEDS ORDERED: COMBIVENT RESPIMAT IH PRN (23:50)
[2017-09-07] MEDS ORDERED: Sennosides 8.6 MG TABLET PO PRN (23:50)
[2017-09-07] MEDS ORDERED: D5% in 0.45% NACL 1,000 ML IVC SCH (23:50)
[2017-09-07] MEDS: Ringers Solution, Lactated 1,000 ML IVC SCH (23:50)
[2017-09-08] MEDS: *HR* Heparin 5,000 UNIT/ML VIAL SQ SCH ×4 (01:28→23:41)
[2017-09-08] MEDS: Clindamycin 900 MG/50 ML 900 MG/50 ML IV.SOLN IVPB SCH ×2 (01:36→09:22)
[2017-09-08] MEDS: Ringers Solution, Lactated 1,000 ML IVC SCH ×3 (05:09→20:01)
--- NOTE | 2017-09-08 06:55 | Orthopedics Progress Note ---
Date of Encounter: 09/08/17 Time of Encounter: 06:54 Subjective Principal diagnosis: Left hip periprosthetic fracture Interval history: Patient was seen this morning doing well without complaints. Afebrile vital signs stable. Operative extremity: Neurovascularly intact Dressing clean dry and intact Calves nontender Assessment and plan: Continue with postoperative care Hematocrit 30 Objective Vital signs: Vital Signs Temp Pulse Resp BP Pulse Ox 09/08/17 04:55 97.6 F 81 14 108/66 97 09/08/17 01:23 98.0 F 86 12 120/65 94 09/07/17 23:00 97.9 F 96 19 148/55 96 09/07/17 22:30 97.8 F 97 20 152/68 96 09/07/17 21:37 98.3 F 99 20 155/70 95 09/07/17 21:27 98 20 157/76 95 09/07/17 21:17 98 20 158/73 95 09/07/17 21:07 98.6 F 98 20 156/78 94 09/07/17 20:57 98 20 146/78 95 09/07/17 20:47 98 20 138/90 94 09/07/17 20:37 101.6 F H 93 20 164/78 96 09/07/17 14:43 98.3 F 97 18 118/64 95 09/07/17 10:39 98.2 F 91 16 126/65 91 09/07/17 08:14 98.2 F 104 16 130/68 91 Intake and Output 09/07/17 09/07/17 09/08/17 15:59 23:59 07:59 Intake Total 1000 / 1000 0 / 0 1050 / 1050 Output Total 350 / 350 650 / 650 150 / 150 Balance 650 / 650 -650 / -650 900 / 900 Intake: IV Fluids 1000 / 1000 1050 / 1050 D5% And 0.45% Nacl 1000 Ml Bag 1000 / 1000 1000 / 1000 1,000 ML @ 75 mls/hr IVC . [id number] JAY Rx#:[id number] Cleocin Premix 900 MG/50 ML 900 50 / 50 mg In 50 ml @ 50 mls/hr IVPB Q8HR JAY Rx#:[id number] Oral 0 / 0 0 / 0 Output: Urine 100 / 100 Estimated Blood Loss 200 / 200 Catheter 250 / 250 450 / 450 150 / 150 Other: Meal npo lunch Weight 67 kg Blood Glucose* 129 160 Patient Weight 09/08/17 23:59 Weight 67 kg - Labs CBC & BMP: 09/07/17 21:10 09/07/17 02:35 Labs: Abnormal lab results WBC 11.4 K/mcL (4.3-11.1) H 09/07/17 02:35 RBC 3.62 M/mcL (3.82-4.97) L 09/07/17 02:35 Hgb 10.1 g/dL (11.5-15.4) L 09/07/17 21:10 Hct 30.0 % (35.3-44.9) L 09/07/17 21:10 MPV 8.7 fL (9.4-12.4) L 09/07/17 02:35 Sodium 133 mEq/L (136-145) L 09/07/17 02:35 Chloride 95 mEq/L (98-107) L 09/07/17 02:35 Carbon Dioxide 32 mEq/L (23-29) H 09/07/17 02:35 Glucose 162 mg/dL (70-105) H 09/07/17 02:35 POC Glucose 160 mg/dL (70-99) H 09/07/17 23:43 Calculated Osmolality 279 (280-300) L 09/07/17 02:35 Urine Color Red (Yellow) A 09/07/17 04:41 Urine Clarity Cloudy (Clear) A 09/07/17 04:41 Ur Specific [place] > 1.030 (1.010-1.025) H 09/07/17 04:41 Urine Protein 30 mg/dL (Neg-Trace) H 09/07/17 04:41 Urine Ketones Trace mg/dL (Negative) H 09/07/17 04:41 Urine Blood Small (Negative) H 09/07/17 04:41 Urine Nitrite Positive (Negative) A 09/07/17 04:41 Urine Bilirubin Moderate (Negative) H 09/07/17 04:41 Ur Leukocyte Esterase Moderate (Negative) H 09/07/17 04:41 Urine Microscopic RBC 15-30 per hpf (0-3) H 09/07/17 04:41 Urine Microscopic WBC TNTC per hpf (0-3) H 09/07/17 04:41 Ur Squamous Epith Cells Many per lpf (None-Few) H 09/07/17 04:41 Urine Bacteria Moderate per hpf (None-Few) H 09/07/17 04:41 Hyaline Casts Moderate per lpf (None-Few) H 09/07/17 04:41 - VTE Documentation of Mechanical Device: Venous foot pump, device Consult Discharge Plan - Plan Referrals: Britney Rangel, ADOPTION COUNSELOR [Primary Care Provider] -
[2017-09-08 06:58] LABS: Hematocrit 30.2 % (35.3-44.9); Hemoglobin 10.3 g/dL (11.5-15.4)
[2017-09-08] MEDS: Metoprolol XL (24 HR) Succ 50 MG TAB.ER.24H PO SCH (09:10)
[2017-09-08] MEDS: *HR* OxyCODONE Immed Rel 5 MG TABLET PO PRN ×2 (09:21→14:12)
[2017-09-08] MEDS: Multivit/Ca/Min/Fe/FA 1 TAB TABLET PO SCH (09:22)
[2017-09-08] MEDS: Ascorbic Acid 500 MG TABLET PO SCH ×2 (09:22→16:58)
[2017-09-08] MEDS: *HR* LORazepam 1 MG TABLET PO PRN ×2 (14:12→23:41)
[2017-09-08] MEDS ORDERED: Ipratropium/Albuterol Neb 3 ML IH PRN (14:29)
--- NOTE | 2017-09-08 16:45 | Electrocardiograph Report ---
[address] [address] Test Date: 2017-09-05 Pat Name: Fer Leahy Department: 115 Room: 3A45 Gender: F Ceo & Founder: : 1935 Requested By: Tomas Reardon Order Number: [id number] Reading MD: Hadley Topete Measurements Intervals [place] Rate: 93 P: 79 [place]: 161 QRS: -52 QRSD: 129 T: -14 QT: 366 QTc: 416 Interpretive Statements SINUS RHYTHM RIGHT BUNDLE BRANCH BLOCK LEFT ANTERIOR FASCICULAR BLOCK Electronically Signed On 09-08-2017 16:44:07 EDT by Hadley Topete
[2017-09-08] MEDS: Famotidine 20 MG TABLET PO SCH (16:57)
--- NOTE | 2017-09-08 18:33 | Internal Med Progress Note ---
Date of Encounter: 09/08/17 Time of Encounter: 11:00 - Assessment and plan (1) Left displaced femoral neck fracture Current Visit: Yes Status: Acute Assessment and plan: left leg x-ray in the emergency room showed a minimally displaced obliquely oriented sub trochanteric fracture of left femur. Status post left revision femoral component POD 1 (2) HTN (hypertension) Current Visit: Yes Status: Chronic Assessment and plan: Blood pressure well controlled. Continue current medications. Qualifiers: Hypertension type: essential hypertension Qualified Code(s): I10 - Essential (primary) hypertension (3) HLD (hyperlipidemia) Current Visit: Yes Status: Chronic Assessment and plan: resumed home med statin Qualifiers: Hyperlipidemia type: unspecified Qualified Code(s): E78.5 - Hyperlipidemia , unspecified (4) COPD (chronic obstructive pulmonary disease) Current Visit: Yes Status: Chronic Assessment and plan: Not in acute exacerbation. Continue when necessary breathing treatments and supplemental oxygen. Qualifiers: COPD type: unspecified COPD Qualified Code(s): J44.9 - Chronic obstructive pulmonary disease, unspecified - Time Spent With Patient Total time spent is greater than 50% in coordination of care (as documented) at patient's floor/unit and/or counseling patient: - Subjective Interval history: Patient status post left revision femoral component POD 1 - Constitutional Vitals: Temp Pulse Resp BP Pulse Ox 98.2 F 114 15 112/62 94 09/08/17 16:55 09/08/17 16:55 09/08/17 16:55 09/08/17 16:55 09/08/17 16:55 General appearance: Present: A&O X 3, answers questions appropriately - Respiratory Respiratory exam: Present: CTAB. Absent: accessory muscle use, rales, rhonchi, wheezes - Cardiovascular Cardiovascular exam: Present: RRR, +S1, +S2. Absent: diastolic murmur, gallop, rubs, systolic murmur Internal Medicine: Result - Labs CBC & Chem 7: 09/08/17 06:33 09/07/17 02:35 Labs: Short CBC 09/07/17 09/08/17 Range/Units 21:10 06:33 Hgb 10.1 L 10.3 L (11.5-15.4) g/dL Hct 30.0 L 30.2 L (35.3-44.9) % - Impressions Impressions Hip X-Ray 09/07/17 19:09 IMPRESSION: Recent postsurgical change of left hip arthroplasty in a patient with a proximal femoral fracture. D/ / Bam Prather MD / Bam Prather MD Interpreting Provider: Bam Prather MD Hip X-Ray 09/07/17 20:05 IMPRESSION: Intraoperative image demonstrating no hardware complication D/ / Cong Cook MD / Cong Cook MD Interpreting Provider: Cong Cook MD - VTE Documentation of Mechanical Device: Venous foot pump, device Consult Discharge Plan - Plan Referrals: Britney Rangel METAL POLISHER AND BUFFER APPRENTICE [Primary Care Provider] -
[2017-09-08] MEDS: cloNIDine HCl 0.1 MG TABLET PO SCH (20:05)
[2017-09-08] MEDS: *HR* HYDROcodone/Acet 5/325 mg TABLET PO PRN (20:09)
--- NOTE | 2017-09-08 20:51 | Podiatry Consult Note ---
Date of Encounter: 09/08/17 Time of Encounter: 12:00 Assessment and Plan (1) Dislocation of fifth toe, left, closed Current visit: Yes Status: Acute patient had requested to do her left foot surgery while in the hospital. discussed condition with patient again and potential surgery. discussed may ultimately improve her foot pain and functionality. toe and pain in foot could be contributing to her recent falls. Called and spoke with Dr. Calles about the patient and potential surgery on left foot while recovering from her hip. when I came back to the room the patient related she has had enough surgery for now and changed her mind about having the left foot surgery at this time and she does not want the surgery now. Qualifiers: Encounter type: initial encounter Qualified Code(s): S93.105A - Unspecified dislocation of left toe(s), initial encounter History of Present Illness HPI: Ms. Leahy is a 82 year old female admitted with periprosthetic fracture s/p surgery. Previously scheduled multiple times for left foot surgery for dislocated 5th toe. patient asks if she can have the surgery while she is currently here and has been cleared. she maintains that this toe causes her significant pain and difficulty walking. Past Med Surg Social Fam HX - Past Medical History Medical history: COPD, hypertension Additional medical history: spinal stenosis, Psychiatric history: depression - Past Surgical History Surgical History: cholecystectomy, hip replacement Additional surgical history: explor lap, spinal sx, left foot sx x2, bilateral hip replacemnts - Social History Smoking Status: Former smoker Smokeless Tobacco Status: No Alcohol use: occasionally Drug use: none Medications and Allergies Docusate Sodium [Dulcolax Stool Softener] 200 mg PO DAILY 09/05/17 [History] Duloxetine HCl 30 mg PO QAM 09/05/17 [History] Losartan/Hydrochlorothiazide [Losartan-Hctz 100-12.5 mg Tab] 1 each PO QAM 09/05 [History] Metoprolol Succinate 100 mg PO QAM 09/05/17 [History] Pravastatin Sodium [Pravachol] 20 mg PO QAM 09/05/17 [History] Ranitidine HCl [Acid Teacher Physically Impaired] 150 mg PO BID 09/05/17 [History] cloNIDine HCl [Clonidine HCl] 0.1 tab PO HS 09/05/17 [History] HYDROcodone/Acet 5/325 mg [[place] 5-325 mg] 1 tab PO TID PRN 09/07/17 [History] LORazepam [Ativan] 1 mg PO BID 09/07/17 [History] 3 Allergy/AdvReac Type Severity Reaction Status Date / Time Sulfa (Sulfonamide Allergy Hives Verified 09/06/17 18:52 Antibiotics) Penicillins AdvReac Hives Verified 09/06/17 18:52 All Systems Reviewed: The remainder of the systems were reviewed and are negative - Constitutional Constitutional: no fever(s) - Cardiovascular Cardiovascular: no chest pain, no dyspnea - Respiratory Respiratory: no dyspnea - Musculoskeletal Musculoskeletal: limited range of motion Physical Exam - Constitutional Vitals: Temp Pulse Resp BP Pulse Ox 98.7 F 125 16 113/56 92 09/08/17 19:09 09/08/17 19:09 09/08/17 19:09 09/08/17 19:09/08/17 19:09 Exam: CFT < 3 sec x 5 digits left foot. left foot warm to touch. no edema of the foot. left 5th digit underlaps 3rd and 4th digit.toe semi-reducible. sensation intact to touch. Results - Labs Result Diagrams: 09/08/17 06:33 09/07/17 02:35 Labs: Abnormal lab results WBC 11.4 K/mcL (4.3-11.1) H 09/07/17 02:35 RBC 3.62 M/mcL (3.82-4.97) L 09/07/17 02:35 Hgb 10.3 g/dL (11.5-15.4) L 09/08/17 06:33 Hct 30.2 % (35.3-44.9) L 09/08/17 06:33 MPV 8.7 fL (9.4-12.4) L 09/07/17 02:35 Sodium 133 mEq/L (136-145) L 09/07/17 02:35 Chloride 95 mEq/L (98-107) L 09/07/17 02:35 Carbon Dioxide 32 mEq/L (23-29) H 09/07/17 02:35 Glucose 162 mg/dL (70-105) H 09/07/17 02:35 POC Glucose 160 mg/dL (70-99) H 09/07/17 23:43 Calculated Osmolality 279 (280-300) L 09/07/17 02:35 Urine Color Red (Yellow) A 09/07/17 04:41 Urine Clarity Cloudy (Clear) A 09/07/17 04:41 Ur Specific [place] > 1.030 (1.010-1.025) H 09/07/17 04:41 Urine Protein 30 mg/dL (Neg-Trace) H 09/07/17 04:41 Urine Ketones Trace mg/dL (Negative) H 09/07/17 04:41 Urine Blood Small (Negative) H 09/07/17 04:41 Urine Nitrite Positive (Negative) A 09/07/17 04:41 Urine Bilirubin Moderate (Negative) H 09/07/17 04:41 Ur Leukocyte Esterase Moderate (Negative) H 09/07/17 04:41 Urine Microscopic RBC 15-30 per hpf (0-3) H 09/07/17 04:41 Urine Microscopic WBC TNTC per hpf (0-3) H 09/07/17 04:41 Ur Squamous Epith Cells Many per lpf (None-Few) H 09/07/17 04:41 Urine Bacteria Moderate per hpf (None-Few) H 09/07/17 04:41 Hyaline Casts Moderate per lpf (None-Few) H 09/07/17 04:41 H & H 09/07/17 09/08/17 Range/Units 21:10 06:33 Hgb 10.1 L 10.3 L (11.5-15.4) g/dL Hct 30.0 L 30.2 L (35.3-44.9) % All other labs normal. Consult Discharge Plan - Plan Referrals: Britney Rangel, COMPOSITION WEATHERBOARD APPLIER [Primary Care Provider] -
[2017-09-09] MEDS: *HR* OxyCODONE Immed Rel 5 MG TABLET PO PRN ×2 (00:10→08:12)
[2017-09-09 05:47] LABS: Hematocrit 25.3 % (35.3-44.9)
[2017-09-09 05:54] LABS: Hemoglobin 8.6 g/dL (11.5-15.4)
[2017-09-09] MEDS: Ascorbic Acid 500 MG TABLET PO SCH ×2 (08:05→17:06)
[2017-09-09] MEDS: Metoprolol XL (24 HR) Succ 50 MG TAB.ER.24H PO SCH (08:05)
[2017-09-09] MEDS: Famotidine 20 MG TABLET PO SCH ×2 (08:05→17:06)
[2017-09-09] MEDS: Multivit/Ca/Min/Fe/FA 1 TAB TABLET PO SCH (08:06)
[2017-09-09] MEDS: *HR* LORazepam 1 MG TABLET PO PRN (08:12)
[2017-09-09] MEDS: *HR* Heparin 5,000 UNIT/ML VIAL SQ SCH ×3 (08:13→23:55)
[2017-09-09] MEDS: Ringers Solution, Lactated 1,000 ML IVC SCH ×2 (09:54→23:54)
[2017-09-09] MEDS ORDERED: Bacitracin 50,000 UNIT, Sodium Chloride IRRigation 1,000 ML IR ONE (14:40)
[2017-09-09 16:38] LABS: Basophils % 0.2 %; Eosinophils # 0.1 K/mcL (0.0-0.6); Eosinophils % 0.7 %; Hematocrit 25.9 % (35.3-44.9); Hemoglobin 8.6 g/dL (11.5-15.4); Immature Granulocytes % 0.5 % (0-4); Lymphocytes # 0.9 K/mcL (0.6-4.6); Lymphocytes % 9.3 %; Mean Corpuscular HGB Conc 33.2 g/dL (31.6-35.5); Mean Corpuscular Hemoglobin 30.4 pg (28.0-33.3); Mean Corpuscular Volume 91.5 fL (83.0-100.0); Mean Platelet Volume 8.9 fL (9.4-12.4); Monocytes # 1.3 K/mcL (0.0-1.3); Neutrophils # 7.5 K/mcL (1.6-8.9); Platelet Count 244 K/mcL (140-400); Red Blood Count 2.83 M/mcL (3.82-4.97); Red Cell Distribution Width 13.3 % (11.5-14.5); Segmented Neutrophils % 76.3 %
[2017-09-09 17:34] LABS: Bilirubin,Urine Negative (Negative); Blood,Urine Negative (Negative); Clarity,Urine Cloudy (Clear); Color,Urine Yellow (Yellow); Glucose,Urine (UA) Normal (Normal); Ketones,Urine Negative (Negative); Leukocyte Esterase,Urine Moderate (Negative); Nitrite,Urine Negative (Negative); PH,Urine 7.5 pH Units (5.0-8.0); Protein,Urine Trace mg/dL (Neg-Trace); Specific Gravity,Urine 1.015 (1.010-1.025); Urobilinogen,Urine Normal (Normal)
[2017-09-09 17:36] LABS: Bacteria,Urine Few per hpf (None-Few); Hyaline Casts,Urine None Seen per lpf (None-Few); Squamous Epithelial Cell,Urine Many per lpf (None-Few)
--- NOTE | 2017-09-09 19:01 | Internal Med Progress Note ---
Date of Encounter: 09/09/17 Time of Encounter: 11:00 - Assessment and plan (1) Left displaced femoral neck fracture Current Visit: Yes Status: Acute Assessment and plan: left leg x-ray in the emergency room showed a minimally displaced obliquely oriented sub trochanteric fracture of left femur. Status post left revision femoral component POD 2 Awaiting placement to a SNF (2) HTN (hypertension) Current Visit: Yes Status: Chronic Assessment and plan: Blood pressure well controlled. Continue current medications. Qualifiers: Hypertension type: essential hypertension Qualified Code(s): I10 - Essential (primary) hypertension (3) HLD (hyperlipidemia) Current Visit: Yes Status: Chronic Assessment and plan: resumed home med statin Qualifiers: Hyperlipidemia type: unspecified Qualified Code(s): E78.5 - Hyperlipidemia , unspecified (4) COPD (chronic obstructive pulmonary disease) Current Visit: Yes Status: Chronic Assessment and plan: Not in acute exacerbation. Continue when necessary breathing treatments and supplemental oxygen. Qualifiers: COPD type: unspecified COPD Qualified Code(s): J44.9 - Chronic obstructive pulmonary disease, unspecified - Time Spent With Patient Total time spent is greater than 50% in coordination of care (as documented) at patient's floor/unit and/or counseling patient: - Subjective Interval history: Patient status post left revision femoral component POD 2 - Constitutional Vitals: Temp Pulse Resp BP Pulse Ox 98.8 F 108 15 122/68 96 09/09/17 18:55 09/09/17 18:55 09/09/17 18:55 09/09/17 18:55 09/09/17 18:55 General appearance: Present: A&O X 3, answers questions appropriately - Respiratory Respiratory exam: Present: CTAB. Absent: accessory muscle use, rales, rhonchi, wheezes - Cardiovascular Cardiovascular exam: Present: RRR, +S1, +S2. Absent: diastolic murmur, gallop, rubs, systolic murmur Internal Medicine: Result - Labs CBC & Chem 7: 09/09/17 16:05 09/07/17 02:35 Labs: Short CBC 09/09/17 09/09/17 Range/Units 05:24 16:05 WBC 9.8 (4.3-11.1) K/mcL Hgb 8.6 L D 8.6 L (11.5-15.4) g/dL Hct 25.3 L 25.9 L (35.3-44.9) % Plt Count 244 (140-400) K/mcL Neutrophils # 7.5 (1.6-8.9) K/mcL Urine 09/09/17 Range/Units 16:49 Urine Color Yellow (Yellow) Urine Clarity Cloudy A (Clear) Urine pH 7.5 (5.0-8.0) pH Units Ur Specific [place] 1.015 (1.010-1.025) Urine Protein Trace (Neg-Trace) mg/dL Urine Glucose (UA) Normal (Normal) mg/dL - VTE Documentation of Mechanical Device: Venous foot pump, device Consult Discharge Plan - Plan Referrals: Britney Rangel, GUEST SERVICE REPRESENTATIVE [Primary Care Provider] -
[2017-09-09] MEDS: cloNIDine HCl 0.1 MG TABLET PO SCH (20:45)
[2017-09-10] MEDS: *HR* HYDROcodone/Acet 5/325 mg TABLET PO PRN (00:47)
--- NOTE | 2017-09-10 06:38 | Orthopedics Progress Note ---
Date of Encounter: 09/10/17 Time of Encounter: 06:37 Subjective Principal diagnosis: Left hip periprosthetic fracture Interval history: Patient was seen this morning doing well without complaints. Afebrile vital signs stable. Operative extremity: Neurovascularly intact Dressing clean dry and intact Calves nontender Assessment and plan: Continue with postoperative care Hematocrit 25 transfuse 2 units plan for discharge tomorrow Objective Vital signs: Vital Signs Temp Pulse Resp BP Pulse Ox 09/10/17 04:22 97.4 F L 94 14 122/72 98 09/09/17 23:22 98.5 F 100 14 109/62 98 09/09/17 18:55 98.8 F 108 15 122/68 96 09/09/17 14:18 98.4 F 108 17 108/67 93 09/09/17 10:01 98.0 F 108 16 119/68 96 09/09/17 07:34 98.3 F 111 18 130/71 97 Intake and Output 09/09/17 09/09/17 09/10/17 15:59 23:59 07:59 Intake Total 1240 / 1240 60 / 60 240 / 240 Output Total 750 / 750 200 / 200 250 / 250 Balance 490 / 490 -140 / -140 -10 / -10 Intake: IV Fluids 1000 / 1000 Lactated Ringers 1,000 ML @ 75 1000 / 1000 mls/hr IVC .[id number] JAY Rx#: [id number] Oral 240 / 240 60 / 60 240 / 240 Output: Urine 200 / 200 250 / 250 Catheter 750 / 750 Other: Meal Lunch Dinner Percent of Meal Consumed 25% 10% # Voids 1 1 # Urine Diapers 1 Weight 68 kg Blood Glucose* 205 Patient Weight 09/10/17 23:59 Weight 68 kg - Labs CBC & BMP: 09/09/17 16:05 09/07/17 02:35 Labs: Abnormal lab results RBC 2.83 M/mcL (3.82-4.97) L 09/09/17 16:05 Hgb 8.6 g/dL (11.5-15.4) L 09/09/17 16:05 Hct 25.9 % (35.3-44.9) L 09/09/17 16:05 MPV 8.9 fL (9.4-12.4) L 09/09/17 16:05 Sodium 133 mEq/L (136-145) L 09/07/17 02:35 Chloride 95 mEq/L (98-107) L 09/07/17 02:35 Carbon Dioxide 32 mEq/L (23-29) H 09/07/17 02:35 Glucose 162 mg/dL (70-105) H 09/07/17 02:35 POC Glucose 205 mg/dL (70-99) H 09/09/17 14:17 Calculated Osmolality 279 (280-300) L 09/07/17 02:35 Urine Clarity Cloudy (Clear) A 09/09/17 16:49 Ur Leukocyte Esterase Moderate (Negative) H 09/09/17 16:49 Urine Microscopic RBC 5-15 per hpf (0-3) H 09/09/17 16:49 Urine Microscopic WBC 5-15 per hpf (0-3) H 09/09/17 16:49 Ur Squamous Epith Cells Many per lpf (None-Few) H 09/09/17 16:49 Ur Culture Indicated? NO. (NO) A 09/09/17 16:49 - VTE Documentation of Mechanical Device: Venous foot pump, device Consult Discharge Plan - Plan Referrals: Britney Rangel, CARDIAC CATH TECH [Primary Care Provider] -
[2017-09-10] MEDS ORDERED: Furosemide 20 MG/2 ML VIAL IVP PRN (06:47)
[2017-09-10 07:04] LABS: Hematocrit 24.8 % (35.3-44.9); Hemoglobin 7.9 g/dL (11.5-15.4)
[2017-09-10] MEDS ORDERED: 0.9 % Sodium Chloride 250 ML ONE (07:46)
[2017-09-10] MEDS: Famotidine 20 MG TABLET PO SCH (08:19)
[2017-09-10] MEDS: *HR* Heparin 5,000 UNIT/ML VIAL SQ SCH ×2 (08:19→19:49)
[2017-09-10] MEDS: Ascorbic Acid 500 MG TABLET PO SCH ×2 (08:20→19:49)
[2017-09-10] MEDS: Multivit/Ca/Min/Fe/FA 1 TAB TABLET PO SCH (08:20)
--- NOTE | 2017-09-10 08:58 | Orthopedics Progress Note ---
Date of Encounter: 09/10/17 Time of Encounter: 16:00 - Assessment and Plan (1) Periprosthetic fracture around internal prosthetic hip joint Current Visit: Yes Status: Acute Qualifiers: Encounter type: initial encounter Laterality: left Qualified Code(s): M97.02XA - Periprosthetic fracture around internal prosthetic left hip joint, initial encounter; T84.041A - Periprosthetic fracture around internal prosthetic left hip joint, initial encounter (2) History of hemiarthroplasty of left hip Current Visit: Yes Status: Acute Subjective Principal diagnosis: Left hip periprosthetic fracture Interval history: Late entry The patient sustained a left hip arthroplasty periprosthetic fracture after fall per patient on 09/04/17. She was transferred from ER with a long posterior splint going from the knee to the foot; the patient does not know why this was applied however states that when removed her pain increased however states that at present time her pain is well controlled so long as she does not move the LLE. She admits to a h/o repetitive falls over the past appx 6-8 months with per patient unknown cause. She states that this past January 2017 she fell and sustained a pelvic fracture for which she was non-ambulatory per patient for 3 months. In discussing this fracture with patient, she is unable to define if she has in fact been diagnosed with osteoporosis. Based on these repeat falls with major fractures, significant concern exists. She states her PCP is Brtiney Rangel CNP at [facility]. She also admits that she has been dealing with a left 5th digit toe issue and has been scheduled for amputation with Dr. Woods podiatry appx 3 times however has had to cancel all surgery secondary to major falls prior to each surgery. She is not able to identify the cause of the falls. She admits to a cardiac history of abnormal EKGs for which she was scheduled to seen an OP senior grants officer this week actually. EKG from 09/05 demonstrates new abnormalities compared to her most recent preop EKG. On exam patient resting comfortably in bed. Alert and oriented x 3. No family at bedside. Left lower extremity: Left hip, no ecchymosis, mild tenderness, no swelling. Patient in TROM brace as directed and wedge pillow intact. No calf tenderness noted to b/l extremities. RLE ROM full and intact. Grossly neurovascular intact. H/H 8.6/25.9 Assessment: Left hip periprosthetic fracture s/p Left Revision femoral component 09/07/17, left leg pain Plan: Continue postoperative care CONTINUE IN TROM BRACE IN LOCKED EXTENSION TO LEFT KNEE. Mobilize with therapy Objective Vital signs: Vital Signs Temp Pulse Resp BP Pulse Ox 09/10/17 08:26 97.8 F 96 16 121/72 95 09/10/17 08:12 97.7 F 95 16 119/62 95 09/10/17 07:04 98.2 F 96 19 108/61 99 09/10/17 07:00 98.2 F 96 18 108/61 99 09/10/17 04:22 97.4 F L 94 14 122/72 98 09/09/17 23:22 98.5 F 100 14 109/62 98 09/09/17 18:55 98.8 F 108 15 122/68 96 09/09/17 14:18 98.4 F 108 17 108/67 93 09/09/17 10:01 98.0 F 108 16 119/68 96 Intake and Output 09/09/17 09/10/17 09/10/17 23:59 07:59 15:59 Intake Total 60 / 60 240 / 240 0 / 0 Output Total 200 / 200 250 / 250 Balance -140 / -140 -10 / -10 0 / 0 Intake: Oral 60 / 60 240 / 240 Blood Product 0 / 0 Rbcs Leuko Poor As-1 Unit 0 / 0 [id number] Output: Urine 200 / 200 250 / 250 Other: Meal Dinner Percent of Meal Consumed 10% # Voids 1 1 # Urine Diapers 1 Weight 68 kg Patient Weight 09/10/17 23:59 Weight 68 kg - Labs CBC & BMP: 09/10/17 06:52 09/07/17 02:35 Labs: Abnormal lab results RBC 2.83 M/mcL (3.82-4.97) L 09/09/17 16:05 Hgb 7.9 g/dL (11.5-15.4) L 09/10/17 06:52 Hct 24.8 % (35.3-44.9) L 09/10/17 06:52 MPV 8.9 fL (9.4-12.4) L 09/09/17 16:05 Sodium 133 mEq/L (136-145) L 09/07/17 02:35 Chloride 95 mEq/L (98-107) L 09/07/17 02:35 Carbon Dioxide 32 mEq/L (23-29) H 09/07/17 02:35 Glucose 162 mg/dL (70-105) H 09/07/17 02:35 POC Glucose 205 mg/dL (70-99) H 09/09/17 14:17 Calculated Osmolality 279 (280-300) L 09/07/17 02:35 Urine Clarity Cloudy (Clear) A 09/09/17 16:49 Ur Leukocyte Esterase Moderate (Negative) H 09/09/17 16:49 Urine Microscopic RBC 5-15 per hpf (0-3) H 09/09/17 16:49 Urine Microscopic WBC 5-15 per hpf (0-3) H 09/09/17 16:49 Ur Squamous Epith Cells Many per lpf (None-Few) H 09/09/17 16:49 Ur Culture Indicated? NO. (NO) A 09/09/17 16:49 - VTE Documentation of Mechanical Device: Venous foot pump, device Consult Discharge Plan - Plan Referrals: Britney Rangel, TRAFFIC CONTROL SPECIALIST [Primary Care Provider] -
--- NOTE | 2017-09-10 13:12 | Event Note ---
Date of Encounter: 09/10/17 Time of Encounter: 08:45 Patient seen at bedside. She is receiving the first unit of blood. Nurses aware of the orders. She states that she just feels very tired she is concerned because she is now dependent on the oxygen and is receiving blood. Encouraged patient that she is anemic and that this occasionally happens after a large fracture and surgery. She verbalized understanding however continued to express concern regarding her condition. Did encourage her that I would check back in with her daily during the weekdays and that we will continue to follow her case while she was admitted here. This seemed to bring her some reassurance.
[2017-09-10] MEDS: *HR* OxyCODONE Immed Rel 5 MG TABLET PO PRN ×2 (13:57→20:17)
[2017-09-10 16:32] LABS: Basophils % 0.2 %; Eosinophils # 0.1 K/mcL (0.0-0.6); Eosinophils % 0.6 %; Hematocrit 33.5 % (35.3-44.9); Immature Granulocytes % 0.6 % (0-4); Lymphocytes # 0.8 K/mcL (0.6-4.6); Lymphocytes % 8.7 %; Mean Corpuscular HGB Conc 33.1 g/dL (31.6-35.5); Mean Corpuscular Volume 90.5 fL (83.0-100.0); Mean Platelet Volume 8.8 fL (9.4-12.4); Monocytes # 1.2 K/mcL (0.0-1.3); Monocytes % 12.6 %; Neutrophils # 7.2 K/mcL (1.6-8.9); Platelet Count 250 K/mcL (140-400); Red Cell Distribution Width 13.5 % (11.5-14.5); Segmented Neutrophils % 77.3 %
[2017-09-10 16:33] LABS: Hemoglobin 11.1 g/dL (11.5-15.4)
[2017-09-10 16:53] LABS: BUN/Creatinine Ratio 24 (6-26); Blood Urea Nitrogen 10 mg/dL (8-23); Calcium 8.7 mg/dL (8.6-10.3); Carbon Dioxide 33 mEq/L (23-29); Chloride 95 mEq/L (98-107); Glucose 148 mg/dL (70-105); Osmolality,Calculated 278 (280-300); Potassium 3.7 mEq/L (3.5-5.1); Sodium 133 mEq/L (136-145); eGFR For African Americans > 60 (> 60); eGFR For Non-African Americans > 60 (> 60)
--- NOTE | 2017-09-10 17:15 | Event Note ---
Date of Encounter: 09/10/17 Time of Encounter: 16:00 PCR- POD#3 Left Revision femoral component for Periprosthetic left hip fracture 09/07 Stevan PCR - Patient seen at bedside. Labwork and medications reviewed. 09/10: H/H 11. after 2 units blood Pain control: Adequate Participating in PT. CONTINUE WITH TROM BRACE AT ALL TIMES. WEDGE PILLOW WHILE SLEEPING WELL. All questions and concerns addressed. Educated on use of incentive spirometer, ambulation, and hydration. Patient educated on post-operative restrictions and care. Addressed: see above. D/C plan: ECF once cleared by hospitalist team
[2017-09-10] MEDS: Metoprolol XL (24 HR) Succ 50 MG TAB.ER.24H PO SCH (17:40)
--- NOTE | 2017-09-10 18:52 | Internal Med Progress Note ---
Date of Encounter: 09/10/17 Time of Encounter: 11:00 - Assessment and plan (1) Left displaced femoral neck fracture Current Visit: Yes Status: Acute Assessment and plan: left leg x-ray in the emergency room showed a minimally displaced obliquely oriented sub trochanteric fracture of left femur. Status post left revision femoral component POD 3 Patient receiving 2 units of packed red blood cells per recommendations orthopedics for anemia Awaiting placement to a SNF (2) HTN (hypertension) Current Visit: Yes Status: Chronic Assessment and plan: Blood pressure well controlled. Continue current medications. Qualifiers: Hypertension type: essential hypertension Qualified Code(s): I10 - Essential (primary) hypertension (3) HLD (hyperlipidemia) Current Visit: Yes Status: Chronic Assessment and plan: resumed home med statin Qualifiers: Hyperlipidemia type: unspecified Qualified Code(s): E78.5 - Hyperlipidemia , unspecified (4) COPD (chronic obstructive pulmonary disease) Current Visit: Yes Status: Chronic Assessment and plan: Not in acute exacerbation. Continue when necessary breathing treatments and supplemental oxygen. Qualifiers: COPD type: unspecified COPD Qualified Code(s): J44.9 - Chronic obstructive pulmonary disease, unspecified - Time Spent With Patient Total time spent is greater than 50% in coordination of care (as documented) at patient's floor/unit and/or counseling patient: - Subjective Interval history: Patient status post left revision femoral component POD 3 She receiving 2 units of packed red blood cells today due to anemia Awaiting approval for ECF placement - Constitutional Vitals: Temp Pulse Resp BP Pulse Ox 99.6 F 112 16 114/70 90 09/10/17 15:06 09/10/17 15:06 09/10/17 15:06 09/10/17 15:06 09/10/17 15:06 General appearance: Present: A&O X 3, no acute distress, answers questions appropriately - Respiratory Respiratory exam: Present: CTAB. Absent: accessory muscle use, rales, rhonchi, wheezes - Cardiovascular Cardiovascular exam: Present: RRR, +S1, +S2. Absent: diastolic murmur, gallop, rubs, systolic murmur Internal Medicine: Result - Labs CBC & Chem 7: 09/10/17 16:18 09/10/17 16:18 Labs: Short CBC 09/10/17 09/10/17 Range/Units 06:52 16:18 WBC 9.4 (4.3-11.1) K/mcL Hgb 7.9 L 11.1 L D (11.5-15.4) g/dL Hct 24.8 L 33.5 L (35.3-44.9) % Plt Count 250 (140-400) K/mcL Neutrophils # 7.2 (1.6-8.9) K/mcL BMP 09/10/17 16:18 Sodium 133 L Potassium 3.7 Chloride 95 L Carbon Dioxide 33 H BUN 10 Creatinine 0.42 L Glucose 148 H Calcium 8.7 - VTE Documentation of Mechanical Device: Venous foot pump, device Consult Discharge Plan - Plan Referrals: Britney Rangel, CLUTCH SPECIALIST [Primary Care Provider] -
[2017-09-10] MEDS: cloNIDine HCl 0.1 MG TABLET PO SCH (20:17)
[2017-09-11] MEDS: Ringers Solution, Lactated 1,000 ML IVC SCH (00:50)
[2017-09-11] MEDS: *HR* Heparin 5,000 UNIT/ML VIAL SQ SCH ×4 (00:53→22:50)
[2017-09-11] MEDS: *HR* OxyCODONE Immed Rel 5 MG TABLET PO PRN (04:03)
[2017-09-11 05:15] LABS: Hematocrit 31.7 % (35.3-44.9); Hemoglobin 10.7 g/dL (11.5-15.4)
[2017-09-11] MEDS: Ascorbic Acid 500 MG TABLET PO SCH ×2 (09:17→18:00)
[2017-09-11] MEDS: *HR* HYDROcodone/Acet 5/325 mg TABLET PO PRN ×3 (09:17→22:55)
[2017-09-11] MEDS: Multivit/Ca/Min/Fe/FA 1 TAB TABLET PO SCH (09:17)
[2017-09-11] MEDS: Metoprolol XL (24 HR) Succ 50 MG TAB.ER.24H PO SCH (09:17)
[2017-09-11] MEDS: Famotidine 20 MG TABLET PO SCH (09:17)
--- NOTE | 2017-09-11 12:17 | Discharge Summary ---
- NOTES TO OUTPATIENT PROVIDER Notes to Outpatient Provider: Patient to have hemoglobin follow-up for acute anemia during hospital stay Orders not resulted at time of discharge: Pending orders 09/07/17 20:20 Culture,Anaerobic [RM] Routine Date of Encounter: 09/11/17 Time of Encounter: 11:00 - Discharge Diagnosis (1) Left displaced femoral neck fracture Priority: Primary Status: Acute (2) HTN (hypertension) Priority: Secondary Status: Chronic Qualifiers: Hypertension type: essential hypertension Qualified Code(s): I10 - Essential (primary) hypertension (3) HLD (hyperlipidemia) Priority: Secondary Status: Chronic Qualifiers: Hyperlipidemia type: unspecified Qualified Code(s): E78.5 - Hyperlipidemia , unspecified (4) COPD (chronic obstructive pulmonary disease) Priority: Secondary Status: Chronic Qualifiers: COPD type: unspecified COPD Qualified Code(s): J44.9 - Chronic obstructive pulmonary disease, unspecified Hospital course: Ms. Leahy is a 82 year old female - Time Spent with Patient Total time spent providing and/or coordinating discharge services: - Discharge Medications Prescriptions: HYDROcodone/Acet 5/325 mg [[place] 5-325 mg] 1 tab PO TID PRN 4 Days #28 tablet PRN Reason: Pain LORazepam [Ativan] 1 mg PO BID 4 Days #8 tablet Home Medications: Docusate Sodium [Dulcolax Stool Softener] 200 mg PO DAILY 09/05/17 [History] Duloxetine HCl 30 mg PO QA 09/05/17 [History] Losartan/Hydrochlorothiazide [Losartan-Hctz 100-12.5 mg Tab] 1 each PO QAM 09/05 [History] Metoprolol Succinate 100 mg PO QAM 09/05/17 [History] Pravastatin Sodium [Pravachol] 20 mg PO QAM 09/05/17 [History] Ranitidine HCl [Acid Leasing Director] 150 mg PO BID 09/05/17 [History] cloNIDine HCl [Clonidine HCl] 0.1 tab PO HS 09/05/17 [History] Ferrous Sulfate 325 mg PO BIDWM tablet 09/11/17 [Rx] HYDROcodone/Acet 5/325 mg [Gordon 5-325 mg] 1 tab PO TID PRN 4 Days #28 tablet [Rx] LORazepam [Ativan] 1 mg PO BID 4 Days #8 tablet 09/11/17 [Rx] Allergies/Adverse Reactions: 3 Allergy/AdvReac Type Severity Reaction Status Date / Time Sulfa (Sulfonamide Allergy Hives Verified 09/06/17 18:52 Antibiotics) Penicillins AdvReac Hives Verified 09/06/17 18:52 Date of admission: 09/05/17 16:39 Primary care physician: Britney Rangel CNP Consults: 09/04/17 19:05 Consult to Orthopedic Surgery [CONS] Routine Consulting Provider: [facility] Reason for Consult: Dr. Butler was consulted [facility] for Femur fracture Time Notified: 19:06 Call Completed: Yes 09/06/17 15:33 Consult to Cardiology [CONS] Routine Comment: Consulting Provider: [facility] Reason for Consult: Preop clearance for left hip fracture; new EKG changes, no prior cardiac history Call Completed: No 09/07/17 23:50 Consult to Nurse Navigator [CONS] Routine Comment: ortho navigator Consult to Occupational Therapy [CONS] Routine Comment: Evaluate, develop and implement POC Reason for Consult: total hip replacement Does patient have active BEDREST order?: No Is patient medically & hemodynamically stable?: Yes Consult to Physical Therapy [CONS] Routine Comment: Evaluate, develop and implement POC Reason for Consult: total hip replacement Does patient have active BEDREST order?: No Is patient medically & hemodynamically stable?: Yes Consult to Office Helper Clerical [CONS] Routine Reason for SW Consult: post op joint replacement RT Post Op Consult [CONS] Routine - Constitutional Vitals: Temp Pulse Resp BP Pulse Ox 98.2 F 110 16 121/7 93 09/11/17 10:55 09/11/17 10:55 09/11/17 10:55 09/11/17 10:55 09/11/17 10:55 General appearance: Present: A&O X 3, no acute distress, answers questions appropriately - Cardiovascular Cardiovascular exam: Present: RRR, +S1, +S2. Absent: diastolic murmur, gallop, rubs, systolic murmur - Patient Status Disposition: Transfer SNF - Discharge Instructions Instructions: Hip Fracture (GEN) Follow Up With: Kriss Wang PAC [Physician Pilates Coordinator] - 09/18/17 11:30 am - VTE Documentation of Mechanical Device: Venous foot pump, device
--- NOTE | 2017-09-11 12:18 | Physician Discharge Referral ---
ExtendedCare Referral Info Institutional Level of Care: Skilled - Diagnosis (1) Left displaced femoral neck fracture Status: Acute (2) HTN (hypertension) Status: Chronic (3) HLD (hyperlipidemia) Status: Chronic (4) COPD (chronic obstructive pulmonary disease) Status: Chronic - Transfer Medications Prescriptions: HYDROcodone/Acet 5/325 mg [Madison 5-325 mg] 1 tab PO TID PRN 4 Days #28 tablet PRN Reason: Pain LORazepam [Ativan] 1 mg PO BID 4 Days #8 tablet Home Medications: Docusate Sodium [Dulcolax Stool Softener] 200 mg PO DAILY 09/05/17 [History] Duloxetine HCl 30 mg PO QAM 09/05/17 [History] Losartan/Hydrochlorothiazide [Losartan-Hctz 100-12.5 mg Tab] 1 each PO QAM 09/05 [History] Metoprolol Succinate 100 mg PO QAM 09/05/17 [History] Pravastatin Sodium [Pravachol] 20 mg PO QAM 09/05/17 [History] Ranitidine HCl [Acid Surgical Services Asst] 150 mg PO BID 09/05/17 [History] cloNIDine HCl [Clonidine HCl] 0.1 tab PO HS 09/05/17 [History] Ferrous Sulfate 325 mg PO BIDWM tablet 09/11/17 [Rx] HYDROcodone/Acet 5/325 mg [Madison 5-325 mg] 1 tab PO TID PRN 4 Days #28 tablet [Rx] LORazepam [Ativan] 1 mg PO BID 4 Days #8 tablet 09/11/17 [Rx] Allergies/Adverse Reactions: 3 Allergy/AdvReac Type Severity Reaction Status Date / Time Sulfa (Sulfonamide Allergy Hives Verified 09/06/17 18:52 Antibiotics) Penicillins AdvReac Hives Verified 09/06/17 18:52 - Respiratory Orders Smoking Cessation: Smoking cessation has been advised. For more information, call the [place] Tobacco Quit Line at 7-303-YETG-NOW. CERTIFICATION: I certify that the transfer of the above named patient to an Extended Care Facility is necessary for the continuing treatment of the diagnosis listed. The above information is true and accurate reflection of patient's current condition. Confidential - Redisclosure prohibited without a patient's written consent.
[2017-09-11] MEDS: *HR* LORazepam 1 MG TABLET PO PRN (14:55)
--- NOTE | 2017-09-11 15:48 | Orthopedics Progress Note ---
Date of Encounter: 09/11/17 Time of Encounter: 13:00 - Assessment and Plan (1) Periprosthetic fracture around internal prosthetic hip joint Current Visit: Yes Status: Acute Qualifiers: Encounter type: initial encounter Laterality: left Qualified Code(s): M97.02XA - Periprosthetic fracture around internal prosthetic left hip joint, initial encounter; T84.041A - Periprosthetic fracture around internal prosthetic left hip joint, initial encounter (2) History of hemiarthroplasty of left hip Current Visit: Yes Status: Acute Subjective Principal diagnosis: Left hip periprosthetic fracture Interval history: Late entry The patient sustained a left hip arthroplasty periprosthetic fracture after fall per patient on 09/04/17. She was transferred from ER with a long posterior splint going from the knee to the foot; the patient does not know why this was applied however states that when removed her pain increased however states that at present time her pain is well controlled so long as she does not move the LLE. She admits to a h/o repetitive falls over the past appx 6-8 months with per patient unknown cause. She states that this past January 2017 she fell and sustained a pelvic fracture for which she was non-ambulatory per patient for 3 months. In discussing this fracture with patient, she is unable to define if she has in fact been diagnosed with osteoporosis. Based on these repeat falls with major fractures, significant concern exists. She states her PCP is Britney Rangel CNP at [facility]. She also admits that she has been dealing with a left 5th digit toe issue and has been scheduled for amputation with Dr. Woods podiatry appx 3 times however has had to cancel all surgery secondary to major falls prior to each surgery. She is not able to identify the cause of the falls. She admits to a cardiac history of abnormal EKGs for which she was scheduled to seen an OP rn mental health this week actually. EKG from 09/05 demonstrates new abnormalities compared to her most recent preop EKG. - Cardio addressed. On exam patient resting comfortably in bed. Alert and oriented x 3. No family at bedside. Left lower extremity: Left hip, no ecchymosis, mild tenderness, no swelling. Patient in TROM brace as directed and wedge pillow intact. No calf tenderness noted to b/l extremities. RLE ROM full and intact. Grossly neurovascular intact. H/H 10.7/31.7 Assessment: Left hip periprosthetic fracture s/p Left Revision femoral component 09/07/17, left leg pain Plan: Continue postoperative care CONTINUE IN TROM BRACE IN LOCKED EXTENSION TO LEFT KNEE. Mobilize with therapy Keep outpatient follow up with JENNIFER as scheduled - appt faxed to floor. Patient doing very well from orthopedic standpoint. At this point will sign off in anticipation of patient discharge to inpatient rehab. Objective Vital signs: Vital Signs Temp Pulse Resp BP Pulse Ox 09/11/17 13:54 98.7 F 104 15 135/74 93 09/11/17 10:55 98.2 F 110 16 121/7 93 09/11/17 06:57 98.5 F 108 16 142/68 95 09/11/17 04:15 98.3 F 112 15 120/61 92 09/10/17 20:30 91 09/10/17 20:10 98.8 F 112 15 117/58 91 Intake and Output 09/10/17 09/11/17 09/11/17 23:59 07:59 15:59 Intake Total 75 / 75 740 / 740 Output Total 375 / 375 150 / 150 150 / 150 Balance -300 / -300 -150 / -150 590 / 590 Intake: Oral 75 / 75 740 / 740 Output: Urine 375 / 375 150 / 150 150 / 150 Other: Meal Dinner Breakfast Percent of Meal Consumed 80% 100% # Voids 1 1 # Urine Diapers 1 Weight 69.1 kg Patient Weight 09/11/17 23:59 Weight 69.1 kg - Labs CBC & BMP: 09/11/17 04:44 09/10/17 16:18 Labs: Abnormal lab results RBC 3.70 M/mcL (3.82-4.97) L 09/10/17 16:18 Hgb 10.7 g/dL (11.5-15.4) L 09/11/17 04:44 Hct 31.7 % (35.3-44.9) L 09/11/17 04:44 MPV 8.8 fL (9.4-12.4) L 09/10/17 16:18 Sodium 133 mEq/L (136-145) L 09/10/17 16:18 Chloride 95 mEq/L (98-107) L 09/10/17 16:18 Carbon Dioxide 33 mEq/L (23-29) H 09/10/17 16:18 Creatinine 0.42 mg/dL (0.60-1.20) L 09/10/17 16:18 Glucose 148 mg/dL (70-105) H 09/10/17 16:18 POC Glucose 205 mg/dL (70-99) H 09/09/17 14:17 Calculated Osmolality 278 (280-300) L 09/10/17 16:18 Urine Clarity Cloudy (Clear) A 09/09/17 16:49 Ur Leukocyte Esterase Moderate (Negative) H 09/09/17 16:49 Urine Microscopic RBC 5-15 per hpf (0-3) H 09/09/17 16:49 Urine Microscopic WBC 5-15 per hpf (0-3) H 09/09/17 16:49 Ur Squamous Epith Cells Many per lpf (None-Few) H 09/09/17 16:49 Ur Culture Indicated? NO. (NO) A 09/09/17 16:49 - VTE Documentation of Mechanical Device: Venous foot pump, device Consult Discharge Plan - Plan Instructions: Hip Fracture (GEN) Referrals: Britney Rangel, [employer]UCER [Primary Care Provider] - Prescriptions: HYDROcodone/Acet 5/325 mg [Newberry 5-325 mg] 1 tab PO TID PRN 4 Days #28 tablet PRN Reason: Pain LORazepam [Ativan] 1 mg PO BID 4 Days #8 tablet
[2017-09-11] MEDS: cloNIDine HCl 0.1 MG TABLET PO SCH (22:51)
[2017-09-12] MEDS: *HR* Heparin 5,000 UNIT/ML VIAL SQ SCH ×2 (06:18→13:37)
[2017-09-12] MEDS: Metoprolol XL (24 HR) Succ 50 MG TAB.ER.24H PO SCH (09:17)
[2017-09-12] MEDS: Ascorbic Acid 500 MG TABLET PO SCH (09:17)
[2017-09-12] MEDS: Famotidine 20 MG TABLET PO SCH (09:18)
[2017-09-12] MEDS: Multivit/Ca/Min/Fe/FA 1 TAB TABLET PO SCH (09:19)
[2017-09-12] MEDS: *HR* OxyCODONE Immed Rel 5 MG TABLET PO PRN (13:36)
[2017-09-12 14:58] VITALS: BP 149/78
== END 2017-09-12 15:45 | DRG 463 ==
LOC: 3ANU → SUATTDRO 16:14 → 3ANU 09-11 08:07
PROVIDERS: ADMIT Family Medicine; ATTEND Hospitalist

== ENCOUNTER 2018-08-08 00:35 | Inpatient (IN) ==
[2018-08-08] MEDS ORDERED: Naloxone 0.4 MG/ML INJ IVP PRN (03:27)
[2018-08-08] MEDS ORDERED: Ondansetron ODT 4 MG TAB.RAPDIS SL PRN (03:27)
[2018-08-08] MEDS ORDERED: Acetaminophen 325 MG TABLET PO PRN (03:27)
--- NOTE | 2018-08-08 03:38 | Internal Med History&Physical ---
Date of Encounter: 08/08/18 Time of Encounter: 02:50 Internal Medicine - H&P: HPI Chief complaint: hip fracture Admitted From: Hospital to Hospital Transfer Plans for Post Hospital Care: Home History of present illness: Ms. Leahy is a 83 year old female who presents to [facility] from [facility] ER. She presented to ER earlier tonight after sustaining a mechanical fall and injuring herself. She fell on her right side and sustained a proximal femur fracture. Workup and imaging were performed at [facility] and transfer request was made to [facility] for orthopedic consultation and surgical repair. Based upon my assessment of the patient, she confirms above history. She denies any syncope or near-syncope. She ambulates with a wheeled walker. She has been unsteady in her feet for several years since her initial hip surgery. Today, she lost balance and fell onto right side, sustaining a hip fracture. She denies any chest pain, dyspnea, palpitations, lightheadedness, or dizziness. She denies any syncope or near-syncope. Past Med Surg Social Fam HX - Past Medical History Attestation: Yes The following information was validated with the patient. Source: patient, old records reviewed, other (limited [facility] records) Medical history: COPD, hypertension, osteoporosis Additional medical history: spinal stenosis, Psychiatric history: depression - Past Surgical History Surgical History: cholecystectomy, hip replacement Additional surgical history: explor lap, spinal sx, left foot sx x2, bilateral hip replacemnts - Social History Smoking Status: Former smoker Smokeless Tobacco Status: No Alcohol use: occasionally Drug use: none Current living situation: Home Activity Level: Independent ambulation, Uses cane/walker Recent Out of Country Travel Within the Last 8 Weeks: No - Family History Mother Living Status: Hx Family Musculoskeletal Disorders: No Father Living Status: Hx Family Musculoskeletal Disorders: No Internal Medicine - H&P: Meds Docusate Sodium [Dulcolax Stool Softener] 200 mg PO DAILY 09/05/17 [History] Duloxetine HCl 30 mg PO QAM 09/05/17 [History] Losartan/Hydrochlorothiazide [Losartan-Hctz 100-12.5 mg Tab] 1 each PO QAM 09/05/17 [History] Metoprolol Succinate 100 mg PO QAM 09/05/17 [History] Pravastatin Sodium [Pravachol] 20 mg PO QAM 09/05/17 [History] Ranitidine HCl [Acid Artist Suspect] 150 mg PO BID 09/05/17 [History] cloNIDine HCl [Clonidine HCl] 0.1 tab PO HS 09/05/17 [History] Ferrous Sulfate 325 mg PO BIDWM tablet 09/11/17 [Rx] HYDROcodone/Acet 5/325 mg [Rayland 5-325 mg] 1 tab PO TID PRN 4 Days #28 tablet 09/11/17 [Rx] LORazepam [Ativan] 1 mg PO BID 4 Days #8 tablet 09/11/17 [Rx] Allergy/AdvReac Type Severity Reaction Status Date / Time oxycodone [Oxycodone] Allergy Hallucinati Verified 03/16/18 14:36 ng Sulfa (Sulfonamide Allergy Hives Verified 09/06/17 18:52 Antibiotics) Penicillins AdvReac Hives Verified 09/06/17 18:52 - Constitutional Constitutional: no chills, no fever(s), no night sweats - EENT Eyes: no blurry vision, no change in vision Ears: no ear pain, no tinnitus Nose, mouth and throat: no nasal congestion, no sinus pressure, no sore throat - Cardiovascular Cardiovascular ROS IM: no chest pain, no dyspnea, no dyspnea on exertion, no lightheadedness, no orthopnea, no paroxysmal nocturnal dyspnea, no syncope - Respiratory Respiratory: no cough, no dyspnea, no hemoptysis, no dyspnea on exertion, no chest congestion, no pain with cough - Gastrointestinal Gastrointestinal: no abdominal pain, no diarrhea, no hematemesis, no hematochezia, no melena, no vomiting - Genitourinary Genitourinary: no dysuria, no flank pain, no hematuria - Musculoskeletal Musculoskeletal ROS IM: arthralgias, no back pain - Integumentary Integumentary IM: no rash, no jaundice - Neurological Neurological ROS: no dizziness, no focal weakness, no frequent falls, no headache(s) - Psychiatric Psychiatric: no anxiety, no depression - Endocrine Endocrine IM: no polydipsia, no polyphagia, no polyuria - Allergic/Immunologic Allergic/Immunologic: no GI upset with certain foods - Constitutional Vitals: Temp Pulse Resp BP Pulse Ox 98.7 F 100 18 134/77 93 08/08/18 03:10 08/08/18 03:10 08/08/18 03:10 08/08/18 03:10 08/08/18 03:10 General appearance: Present: cooperative, A&O X 3, pleasant, answers questions appropriately Exam: pain in right hip; otherwise NAD - Head Head exam: Present: atraumatic, normal inspection - Eye Eye exam: Present: EOMI, PERRL. Absent: scleral icterus Pupils: Present: normal accommodation - ENT ENT exam: Present: mucous membranes dry, normal exam, normal oropharynx - Neck Neck exam general surgery: Present: full ROM, supple, trachea midline. Absent: lymphadenopathy, tenderness, nuchal rigidity, thyromegaly - Respiratory Respiratory exam: Present: CTAB. Absent: chest wall tenderness, rales, respiratory distress, rhonchi, wheezes - Cardiovascular Cardiovascular exam: Present: RRR, +S1, +S2. Absent: diastolic murmur, systolic murmur - GI/Abdominal GI/Abdominal exam: Present: normal bowel sounds, soft. Absent: guarding, hepatomegaly, mass, rebound, splenomegaly, tenderness - Extremities Exam Extremities exam: Present: normal capillary refill, tenderness (right hip/leg), warm, radial pulses palpable and symmetrical. Absent: calf tenderness, pedal edema - Neurological Exam Neurological exam: Present: alert, CN II-XII intact, oriented X3, strengths equal and symetr throughout - Psychiatric Psychiatric exam: Present: normal affect, normal mood - Skin Skin exam: Present: dry, intact, warm Internal Med - H&P Results - Labs Labs: I reviewed the labs and imaging reports from [facility] and include the following: WBC 9.3 Hemoglobin 13.8 Hematocrit 41.9 Platelets 281 PT 12.8 INR 1.1 PTT 25.3 Sodium 137 Potassium 3.2 Chloride 96 CO2 30 BUN 9 Glucose [address] pelvis reveals slightly displaced fracture of the right proximal femur CT head and neck -- negative - Assessment and Plan (1) Fracture of proximal end of right femur Current Visit: Yes Status: Acute Assessment and plan: 1. Will provide pain and nausea control. 2. Will order baseline labs, EKG's pre-op. 3. Consult Orthopedics for definitive care. 4. Will need PT/OT evaluation and likely SNF for rehab upon discharge. Qualifiers: Encounter type: initial encounter Fracture type: closed Qualified Code(s): S72.001A - Fracture of unspecified part of neck of right femur, initial encounter for closed fracture (2) Hypertension Current Visit: Yes Status: Chronic Assessment and plan: 1. Continue home medication as appropriate once meds verified. 2. Monitor BP and adjust medications as necessary. Qualifiers: Hypertension type: essential hypertension Qualified Code(s): I10 - Essential (primary) hypertension (3) COPD (chronic obstructive pulmonary disease) Current Visit: Yes Status: Chronic Assessment and plan: 1. Patient has no oxygen requriement and does not routinely use nebs/MDI's. 2. Will order DuoNeb's PRN. 3. No active process. Qualifiers: COPD type: unspecified COPD Qualified Code(s): J44.9 - Chronic obstructive pulmonary disease, unspecified (4) DVT prophylaxis Current Visit: Yes Status: Acute Assessment and plan: 1. Heparin SQ,
[2018-08-08] MEDS: Ondansetron 4 MG/2 ML VIAL IVP PRN ×2 (03:50→08:29)
[2018-08-08] MEDS: *HR* FentaNYL (PF) 100 MCG/2 ML VIAL IVP PRN (03:51)
[2018-08-08] MEDS: Famotidine 20 MG TABLET PO SCH ×2 (03:51→17:41)
[2018-08-08] MEDS: 0.9 % Sodium Chloride 1,000 ML IVC SCH ×2 (03:51→18:51)
[2018-08-08] MEDS ORDERED: Ipratropium/Albuterol Neb 3 ML IH PRN (04:15)
[2018-08-08] MEDS: *HR* Heparin 5,000 UNIT/ML VIAL SQ SCH ×2 (06:24→17:52)
[2018-08-08 07:17] LABS: Basophils % 0.2 %; Eosinophils % 0.1 %; Hemoglobin 13.4 g/dL (11.5-15.4); Immature Granulocytes % 0.4 % (0-4); Lymphocytes # 1.2 K/mcL (0.6-4.6); Lymphocytes % 7.6 %; Mean Corpuscular HGB Conc 33.5 g/dL (31.6-35.5); Mean Corpuscular Hemoglobin 30.7 pg (28.0-33.3); Mean Corpuscular Volume 91.5 fL (83.0-100.0); Mean Platelet Volume 8.6 fL (9.4-12.4); Monocytes # 1.8 K/mcL (0.0-1.3); Platelet Count 307 K/mcL (140-400); Red Blood Count 4.37 M/mcL (3.82-4.97); Segmented Neutrophils % 80.7 %
[2018-08-08 07:24] LABS: INR 1.1; Prothrombin Time 12.5 Seconds (9.4-12.1)
[2018-08-08 07:25] LABS: Alanine Aminotransferase 16 Units/L (7-52); Albumin 4.1 g/dL (3.5-5.7); Albumin/Globulin Ratio 1.3 (1.1-2.2); Alkaline Phosphatase 74 Units/L (34-104); Aspartate Amino Transferase 17 Units/L (13-39); BUN/Creatinine Ratio 16 (6-26); Bilirubin,Total 0.7 mg/dL (0.3-1.0); Blood Urea Nitrogen 10 mg/dL (8-23); Calcium 9.7 mg/dL (8.6-10.3); Carbon Dioxide 30 mEq/L (23-29); Chloride 96 mEq/L (98-107); Globulin 3.1 g/dL (2.4-3.5); Glucose 167 mg/dL (70-105); Magnesium 1.9 mg/dL (1.6-2.6); Osmolality,Calculated 289 (280-300); Potassium 3.6 mEq/L (3.5-5.1); Sodium 138 mEq/L (136-145); Total Protein 7.2 g/dL (6.4-8.9); eGFR For Non-African Americans > 60 (> 60)
[2018-08-08 07:27] LABS: Activated Partial Thrombo Time 27.9 Seconds (26.0-36.0)
[2018-08-08] MEDS ORDERED: *HR* HYDROcodone/Acet 5/325 mg TABLET PO PRN (12:51)
[2018-08-08] MEDS ORDERED: *HR* Promethazine 25 MG/ML VIAL IVP PRN (12:54)
[2018-08-08] MEDS ORDERED: Ondansetron 4 MG/2 ML VIAL IVP PRN (12:54)
--- NOTE | 2018-08-08 14:50 | Orthopedic Consult Note ---
Date of Encounter: 08/08/18 Time of Encounter: 14:47 Assessment and Plan (1) Periprosthetic fracture around internal prosthetic hip joint Current Visit: No Status: Acute The patient has an acute nondisplaced periprosthetic fracture of the proximal pole of the implant of the right hip. The fracture line seen coming through the posterior trochanter and also the greater trochanter. The meso plastic implant appears stable. I recommend the patient be toe-touch weightbearing. Physical therapy. No surgery indicated at this time. The patient will follow-up with Dr. Calles. Qualifiers: Encounter type: initial encounter Laterality: right Qualified Code(s): M97.01XA - Periprosthetic fracture around internal prosthetic right hip joint, initial encounter; T84.040A - Periprosthetic fracture around internal prosthetic right hip joint, initial encounter History of Present Illness Chief complaint: Right hip and left thigh pain HPI: Ms. Leahy is a 83 year old female with history of bilateral hemiarthroplasties. The patient had the right-side done several years ago by Dr. Gonsalves. She recently had the left side done by Dr. Calles. She has been having left thigh pain associated with a periprosthetic fracture. The patient is scheduled to see Dr. Calles for follow-up next week. She fell down last night sustaining another periprosthetic fracture of the right implant this time. The patient transferred from [facility] for surgical evaluation. Past Med Surg Social Fam HX - Past Medical History Medical history: COPD, hypertension, osteoporosis Additional medical history: spinal stenosis, Psychiatric history: depression - Past Surgical History Surgical History: cholecystectomy, hip replacement Additional surgical history: explor lap, spinal sx, left foot sx x2, bilateral hip replacemnts - Social History Smoking Status: Former smoker Smokeless Tobacco Status: No Alcohol use: occasionally Drug use: none - Family History Mother Living Status: Hx Family Musculoskeletal Disorders: No Father Living Status: Hx Family Musculoskeletal Disorders: No Medications and Allergies Docusate Sodium [Dulcolax Stool Softener] 200 mg PO DAILY 09/05/17 [History] Duloxetine HCl 30 mg PO QAM 09/05/17 [History] Losartan/Hydrochlorothiazide [Losartan-Hctz 100-12.5 mg Tab] 100 mg PO QAM 09/05/17 [History] Metoprolol Succinate 100 mg PO QAM 09/05/17 [History] Pravastatin Sodium [Pravachol] 20 mg PO QPM 09/05/17 [History] Ranitidine HCl [Acid Byproducts Supervisor] 150 mg PO BID 09/05/17 [History] cloNIDine HCl [Clonidine HCl] 0.1 tab PO HS 09/05/17 [History] HYDROcodone/Acet 5/325 mg [Boykin 5-325 mg] 1 tab PO TID PRN 4 Days #28 tablet 09/11/17 [Rx] LORazepam [Ativan] 1 mg PO BID PRN 08/08/18 [History] Allergy/AdvReac Type Severity Reaction Status Date / Time oxycodone [Oxycodone] Allergy Hallucinati Verified 03/16/18 14:36 ng Sulfa (Sulfonamide Allergy Hives Verified 09/06/17 18:52 Antibiotics) Penicillins AdvReac Hives Verified 09/06/17 18:52 All Systems Reviewed: The remainder of the systems were reviewed and are negative Physical Exam - Constitutional Vitals: Temp Pulse Resp BP Pulse Ox 97.6 F 102 16 161/87 91 08/08/18 11:10 08/08/18 11:10 08/08/18 11:10 08/08/18 11:10 08/08/18 11:10 General appearance IM: A&O X 3, no acute distress, answers questions appropriately Exam: Head normocephalic/atraumatic Neck supple Right lower extremity: Skin is intact, no bruising, minimal tenderness in the groin area, mild pain with hip range of motion, no tenderness distally, calf is soft nontender, grossly varus intact distally Left lower extremity: No groin tenderness, mild tenderness over the midshaft of the femur, grossly neurovascularly intact distally Results - Labs Result Diagrams: 08/08/18 06:55 08/08/18 06:55 Labs: Abnormal lab results WBC 16.1 K/mcL (4.3-11.1) H 08/08/18 06:55 MPV 8.6 fL (9.4-12.4) L 08/08/18 06:55 13.0 K/mcL (1.6-8.9) H 08/08/18 06:55 1.8 K/mcL (0.0-1.3) H 08/08/18 06:55 PT 12.5 Seconds (9.4-12.1) H 08/08/18 06:55 Chloride 96 mEq/L (98-107) L 08/08/18 06:55 Carbon Dioxide 30 mEq/L (23-29) H 08/08/18 06:55 Glucose 167 mg/dL (70-105) H 08/08/18 06:55 H & H 08/08/18 Range/Units 06:55 Hgb 13.4 (11.5-15.4) g/dL Hct 40.0 (35.3-44.9) % All other labs normal. - Diagnostic results Hip x-ray: image reviewed (Right hip periprosthetic fracture of the lesser trochanter and greater trochanter, nondisplaced implant is well fixed) Consult Discharge Plan - Plan Referrals: Britney Rangel, [employer] [Primary Care Provider] -
[2018-08-08] MEDS ORDERED: *HR* LORazepam 2 MG/ML VIAL IVP ONE (15:51)
[2018-08-08] MEDS ORDERED: *HR* Labetalol 20 MG/4 ML SYRINGE IVP PRN (15:51)
[2018-08-08] MEDS: Pantoprazole 40 MG VIAL IVP SCH (17:40)
[2018-08-08] MEDS: cloNIDine HCl 0.1 MG TABLET PO SCH (19:51)
[2018-08-08] MEDS: Chloraseptic Spray 177 ML BOTTLE MM PRN (22:06)
[2018-08-09] MEDS: *HR* LORazepam 1 MG TABLET PO PRN (03:06)
[2018-08-09] MEDS: Chloraseptic Spray 177 ML BOTTLE MM PRN (03:07)
[2018-08-09] MEDS: Pantoprazole 40 MG VIAL IVP SCH ×2 (04:28→18:06)
[2018-08-09] MEDS: *HR* Heparin 5,000 UNIT/ML VIAL SQ SCH ×2 (04:28→18:06)
--- NOTE | 2018-08-09 08:23 | Orthopedics Progress Note ---
Date of Encounter: 08/09/18 Time of Encounter: 09:00 - Assessment and Plan (1) Periprosthetic fracture around internal prosthetic hip joint Current Visit: Yes Status: Acute Qualifiers: Encounter type: initial encounter Laterality: right Qualified Code(s): M97.01XA - Periprosthetic fracture around internal prosthetic right hip joint, initial encounter; T84.040A - Periprosthetic fracture around internal prosthetic right hip joint, initial encounter (2) Right hip pain Current Visit: Yes Status: Acute (3) Left hip pain Current Visit: Yes Status: Chronic Subjective Principal diagnosis: right hip pain after falling Interval history: Ms. Leahy is a 83 year old female transferred from [facility] to [facility] after a fall landing onto her right side. She has history of bilateral hip hemiarthroplasties. The patient had the right-side [place] [address] Gonsalves per record. She had the left side done by Dr. Calles in 2013 for fracture then had revision hemiarthroplasty on the left again by Dr. Calles 09/2017 for periprosthetic femur fracture. She has been having left thigh pain since revision surgery and has been following with sports medicine. The patient is scheduled to see Dr. Calles for follow-up next week of her ongoing left hip pain and a recent bone scan of the left hip. She fell again 08/07/18 sustaining a right sided periprosthetic fracture of the right hip hemiarthroplasty implant Dr. Butler reviewed images and noted "an acute nondisplaced periprosthetic fracture of the proximal pole of the implant of the right hip. The fracture line seen coming through the posterior trochanter and also the greater trochanter. The meso plastic implant appears stable." Patient examined at bedside. Sitting in chair for breakfast. In no acute distress, alert and oriented x 3. No gross deformity noted. Nontender calves bilaterally. Slow with motion to the right lower extremity with grimacing in apparent pain. Neurovascularly intact bilaterally. Case discussed with Dr. Calles Patient to be NONWEIGHTBEARING Discussed with Dr. Ramirez - hospitalist - recommendation from therapy and patient to have rehab, awaiting placement Patient to keep follow up outpatient as scheduled Patient in agreement to plan as stated. Objective Vital signs: Vital Signs Temp Pulse Resp BP Pulse Ox 08/09/18 06:55 98.7 F 87 18 132/67 94 08/09/18 03:21 98.0 F 119 20 164/80 92 08/09/18 01:24 99.1 F 114 20 151/73 93 08/08/18 20:01 96 08/08/18 19:49 98.9 F 112 18 162/69 93 08/08/18 15:45 98.1 F 100 20 183/84 92 08/08/18 11:10 97.6 F 102 16 161/87 91 08/08/18 08:53 98.4 F 105 16 178/83 91 Intake and Output 08/08/18 08/09/18 08/09/18 23:59 07:59 15:59 Intake Total 1200 / 1200 25 / 25 Output Total 475 / 1025 150 / 150 Balance 725 / 175 -125 / -125 Intake: IV Fluids 1000 / 1000 0.9 % Sodium Chloride 1,000 ML 1000 / 1000 @ 75 mls/hr IVC .[id number] JAY Rx #:[id number] Oral 200 / 200 25 / 25 Output: Catheter 475 / 625 150 / 150 Other: Weight 69.5 kg Patient Weight 08/09/18 23:59 Weight 69.5 kg - Labs CBC & BMP: 08/09/18 09:45 08/09/18 09:45 Labs: Abnormal lab results WBC 16.1 K/mcL (4.3-11.1) H 08/08/18 06:55 MPV 8.6 fL (9.4-12.4) L 08/08/18 06:55 13.0 K/mcL (1.6-8.9) H 08/08/18 06:55 1.8 K/mcL (0.0-1.3) H 08/08/18 06:55 PT 12.5 Seconds (9.4-12.1) H 08/08/18 06:55 Chloride 96 mEq/L (98-107) L 08/08/18 06:55 Carbon Dioxide 30 mEq/L (23-29) H 08/08/18 06:55 Glucose 167 mg/dL (70-105) H 08/08/18 06:55 Consult Discharge Plan - Plan Referrals: Britney Rangel, ME[employer]ER [Primary Care Provider] -
[2018-08-09 09:58] LABS: Hematocrit 36.6 % (35.3-44.9); Mean Corpuscular Hemoglobin 30.5 pg (28.0-33.3); Mean Corpuscular Volume 95.3 fL (83.0-100.0); Mean Platelet Volume 8.5 fL (9.4-12.4); Platelet Count 257 K/mcL (140-400); Red Blood Count 3.84 M/mcL (3.82-4.97); Red Cell Distribution Width 13.2 % (11.5-14.5)
[2018-08-09 09:59] LABS: Hemoglobin 11.7 g/dL (11.5-15.4)
[2018-08-09 10:15] LABS: BUN/Creatinine Ratio 12 (6-26); Blood Urea Nitrogen 9 mg/dL (8-23); Calcium 8.8 mg/dL (8.6-10.3); Carbon Dioxide 27 mEq/L (23-29); Chloride 101 mEq/L (98-107); Glucose 234 mg/dL (70-105); Osmolality,Calculated 288 (280-300); Potassium 3.4 mEq/L (3.5-5.1); Sodium 136 mEq/L (136-145); eGFR For Non-African Americans > 60 (> 60)
[2018-08-09] MEDS: Metoprolol XL (24 HR) Succ 50 MG TAB.ER.24H PO SCH (10:46)
[2018-08-09] MEDS: Famotidine 20 MG TABLET PO SCH (10:46)
--- NOTE | 2018-08-09 10:46 | Electrocardiograph Report ---
[address] [address] Test Date: 2018-08-08 Pat Name: Fer Leahy Department: 114 Room: [facility] Gender: F [place] Conservationist: [id number] : 1935 Requested By: Juan Banerjee Order Number: [id number] Reading MD: Ramya Jain Measurements Intervals Rodney Rate: 98 P: 77 [place]: 171 QRS: -63 QRSD: 130 T: 13 QT: 378 QTc: 433 Interpretive Statements SINUS RHYTHM RIGHT BUNDLE BRANCH BLOCK LEFT ANTERIOR FASCICULAR BLOCK Electronically Signed On 08-09-2018 10:44:41 EDT by Ramya Jain
[2018-08-09] MEDS: *HR* HYDROcodone/Acet 5/325 mg TABLET PO PRN (13:10)
--- NOTE | 2018-08-09 17:00 | Internal Med Progress Note ---
Hospitalist Progress Note - Encounter Date of Encounter: 08/09/18 Time of Encounter: 16:58 - Subjective Interval History: Pt today feels much better than when seen yesterday. Had nausea throughout day yesterday despite zofran and phenergan but abated with ativan, and pt much more comfortable since. Unsure why nauseated. Did have a small amount of blood in her vomitus and subsequently in her sputum, concerning for small amount of aspiration. Today, having some burning in her throat and esophagus but no further episodes. No abd pain or diarrhea. No SOB. R hip still hurting. - Exam Vitals: Temp Pulse Resp BP Pulse Ox 98.7 F 99 18 126/64 94 08/09/18 14:18 08/09/18 14:18 08/09/18 14:18 08/09/18 14:18 08/09/18 14:18 Exam: General: NAD, good eye contact, well appearing, elderly Thoracic: Normal breath sounds b/l, no wheezing or crackles Cardio: Normal S1 and S2, regular rhythm, tachycardic Abdomen: Soft, nontender, nondistended Extremities: Warm, well perfused. DP pulses 2+ b/l. No edema. Skin: Intact. No rashes, bruises, or ulcers. Neuro: Awake, fully oriented. Speech fluent. Movement and sensation preserved in RLE. - Summary of Assessment and Plan Summary of Assessment and Plan: Fer Leahy is an 83 F w hx HTN, COPD, osteoporosis, depression, who p/w R hip pain after a fall, abnormal XR of R hip, concerning for R-sided nondisplaced periprosthetic fracture of the proximal pole of the R hip implant. R periprosthetic nondisplaced femur fracture: per Ortho, non-op management, non- weight bearing - Ortho following - PT/OT following - case management consulted for SNF planning Sepsis: tachycardic w leukocytosis, unclear etiology. Could very well be reactive from fracture with tachycardia from pain. However does have N/V, and pt denies mechanical fall which could have instead happened due to infection. Also could have aspirated yesterday following N/V - BCx x2 - CXR - UA - hold on abx as clinically more well appearing today despite persistent SIRS 2/4, low threshold to cover N/V: unclear etiology, possibly 2/2 pain or pain medications - supportive care with nausea, phenergan, and then ativan for breakthrough HTN: home clonidine, toprol COPD: home duonebs prn Depression: home cymbalta PPx: sqh FEN: cardiac, stop MIVF Lines: PIV Consults: Ortho Code: Full Dispo: patient requires inpatient eval and management at this time. Anticipate 1-2 days. Will need SNF placement Internal Medicine: Result - Labs CBC & Chem 7: 08/09/18 09:45 08/09/18 09:45 Labs: Short CBC 08/09/18 Range/Units 09:45 WBC 16.8 H (4.3-11.1) K/mcL Hgb 11.7 D (11.5-15.4) g/dL Hct 36.6 (35.3-44.9) % Plt Count 257 (140-400) K/mcL BMP 08/09/18 09:45 Sodium 136 Potassium 3.4 L Chloride 101 Carbon Dioxide 27 BUN 9 Creatinine 0.73 Glucose 234 H Calcium 8.8 - ABG Interpretation ABG results: PT/INR, D-dimer PT 12.5 Seconds (9.4-12.1) H 08/08/18 06:55 Consult Discharge Plan - Plan Referrals: Britney Rangel, [employer] [Primary Care Provider] -
[2018-08-09] MEDS: cloNIDine HCl 0.1 MG TABLET PO SCH (21:27)
[2018-08-10 00:47] LABS: Bilirubin,Urine Negative (Negative); Blood,Urine Negative (Negative); Clarity,Urine Clear (Clear); Color,Urine Yellow (Yellow); Glucose,Urine (UA) Normal (Normal); Ketones,Urine Negative (Negative); Leukocyte Esterase,Urine Small (Negative); Nitrite,Urine Negative (Negative); Protein,Urine Trace mg/dL (Neg-Trace); Specific Gravity,Urine 1.019 (1.010-1.025); Urobilinogen,Urine Normal (Normal)
[2018-08-10 00:49] LABS: Bacteria,Urine Few per hpf (None-Few); Hyaline Casts,Urine None Seen per lpf (None-Few); Squamous Epithelial Cell,Urine Many per lpf (None-Few)
[2018-08-10 01:06] LABS: RBC,Urine 0-3 per hpf (0-3)
[2018-08-10] MEDS: *HR* HYDROcodone/Acet 5/325 mg TABLET PO PRN ×4 (01:06→23:35)
[2018-08-10] MEDS: *HR* LORazepam 1 MG TABLET PO PRN ×2 (02:33→22:00)
[2018-08-10 04:27] LABS: Hematocrit 34.4 % (35.3-44.9); Hemoglobin 11.1 g/dL (11.5-15.4); Mean Corpuscular HGB Conc 32.3 g/dL (31.6-35.5); Mean Corpuscular Hemoglobin 30.7 pg (28.0-33.3); Mean Corpuscular Volume 95.3 fL (83.0-100.0); Platelet Count 221 K/mcL (140-400); Red Blood Count 3.61 M/mcL (3.82-4.97)
[2018-08-10 04:42] LABS: BUN/Creatinine Ratio 17 (6-26); Blood Urea Nitrogen 10 mg/dL (8-23); Carbon Dioxide 32 mEq/L (23-29); Chloride 102 mEq/L (98-107); Glucose 143 mg/dL (70-105); Osmolality,Calculated 284 (280-300); Potassium 3.4 mEq/L (3.5-5.1); Sodium 136 mEq/L (136-145); eGFR For Non-African Americans > 60 (> 60)
[2018-08-10] MEDS: Pantoprazole 40 MG VIAL IVP SCH ×2 (06:19→16:59)
[2018-08-10] MEDS: *HR* Heparin 5,000 UNIT/ML VIAL SQ SCH (06:20)
--- NOTE | 2018-08-10 08:49 | Internal Med Progress Note ---
Hospitalist Progress Note - Encounter Date of Encounter: 08/10/18 Time of Encounter: 08:49 - Subjective Interval History: Pt denies acute needs or concerns today other than ongoing R hip pain and being unable to walk. Ready for rehab but is worried about what will come after that as she has difficult home situation w progressively demented . No fever, cough, SOB, dysuria, or malaise. - Exam Vitals: Temp Pulse Resp BP Pulse Ox 98.4 F 99 16 136/66 93 08/10/18 03:21 08/10/18 03:21 08/10/18 03:21 08/10/18 03:21 08/10/18 03:21 Exam: General: NAD, good eye contact, well appearing, elderly Thoracic: Normal breath sounds b/l, no wheezing or crackles Cardio: Normal S1 and S2, regular rhythm and rate Abdomen: Soft, nontender, nondistended Extremities: Warm, well perfused. DP pulses 2+ b/l. No edema. Skin: Intact. No rashes, bruises, or ulcers. Neuro: Awake, fully oriented. Speech fluent. Movement and sensation preserved in RLE. - Summary of Assessment and Plan Summary of Assessment and Plan: Fer Leahy is an 83 F w hx HTN, COPD, osteoporosis, depression, who p/w R hip pain after a fall, abnormal XR of R hip, concerning for R-sided nondisplaced periprosthetic fracture of the proximal pole of the R hip implant. R periprosthetic nondisplaced femur fracture: per Ortho, non-op management, non-weight bearing - Ortho following - PT/OT following - case management consulted for SNF planning, likely d/c tomorrow - xarelto 10 daily for dvt ppx Sepsis: resolved, evaluation unremarkable and likely 2/2 fracture and pain, not on abx N/V: possibly 2/2 pain or pain medications, resolved HTN: home clonidine, toprol COPD: home duonebs prn Depression: home cymbalta PPx: xarelto 10 daily x30 days FEN: cardiac, no MIVF Lines: PIV Consults: Ortho Code: Full Dispo: ready for d/c, anticipate tomorrow, to SNF Internal Medicine: Result - Labs CBC & Chem 7: 08/10/18 03:55 08/10/18 03:55 Labs: Short CBC 05/06/19 05/07/19 Range/Units 09:45 03:55 WBC 16.8 H 11.3 H (4.3-11.1) K/mcL Hgb 11.7 D 11.1 L (11.5-15.4) g/dL Hct 36.6 34.4 L (35.3-44.9) % Plt Count 257 221 (140-400) K/mcL BMP 08/09/18 08/10/18 09:45 03:55 Sodium 136 136 Potassium 3.4 L 3.4 L Chloride 101 102 Carbon Dioxide 27 32 H BUN 9 10 Creatinine 0.73 0.58 L Glucose 234 H 143 H Calcium 8.8 9.0 Urine 08/10/18 Range/Units 00:35 Urine Color Yellow (Yellow) Urine Clarity Clear (Clear) Urine pH 6.0 (5.0-8.0) pH Units Ur Specific Maxie 1.019 (1.010-1.025) Urine Protein Trace (Neg-Trace) mg/dL Urine Glucose (UA) Normal (Normal) mg/dL - ABG Interpretation ABG results: PT/INR, D-dimer PT 12.5 Seconds (9.4-12.1) H 08/08/18 06:55 - Impressions Impressions Chest X-Ray 08/09/18 17:04 IMPRESSION: 1. No active pulmonary disease. D/ / Dameon Deluca MD / Dameon Deluca MD Interpreting Provider: Dameon Deluca MD Consult Discharge Plan - Plan Referrals: Britney Rangel, [employer]ER [Primary Care Provider] -
[2018-08-10] MEDS: Famotidine 20 MG TABLET PO SCH (09:56)
[2018-08-10] MEDS: Metoprolol XL (24 HR) Succ 50 MG TAB.ER.24H PO SCH (09:56)
[2018-08-10] MEDS: *HR* Rivaroxaban 10 MG TABLET PO SCH (16:59)
[2018-08-10] MEDS: cloNIDine HCl 0.1 MG TABLET PO SCH (21:55)
[2018-08-11] MEDS: Pantoprazole 40 MG VIAL IVP SCH ×2 (06:46→16:58)
[2018-08-11] MEDS: Metoprolol XL (24 HR) Succ 50 MG TAB.ER.24H PO SCH (08:35)
[2018-08-11] MEDS: Famotidine 20 MG TABLET PO SCH (08:35)
[2018-08-11] MEDS: *HR* HYDROcodone/Acet 5/325 mg TABLET PO PRN (08:36)
[2018-08-11] MEDS ORDERED: GI Cocktail 40 ML EACH PO ONE (08:52)
--- NOTE | 2018-08-11 13:37 | Gastroenterology Consult Note ---
<Cong Lo - Last Filed: 08/11/18 13:35> Date of Encounter: 08/11/18 Time of Encounter: 10:25 - Assessment and plan (1) GERD (gastroesophageal reflux disease) Status: Acute Assessment and plan: Continue PPI BID. Complete KUB to rule out ileus. Patient educated regarding lifestyle modifications including: (1) avoidance of foods that may precipitate reflux (eg, coffee, alcohol, chocolate, fatty foods). (2) avoidance of acidic foods that may precipitate heartburn (eg, citrus, carbonated drinks, spicy foods). (3) adoption of behaviors that may reduce esophageal acid exposure (see weight loss, smoking cessation, raising the head of the bed, and avoiding recumbency for 2-3 hours after meals). Qualifiers: Esophagitis presence: esophagitis presence not specified Qualified Code(s): K21.9 - Gastro-esophageal reflux disease without esophagitis (2) Dysphagia Status: Acute Assessment and plan: Patient with difficulty swallowing solids. Recommend EGD with possible dilation to r/o structural causes such as stricture, tumor, etc vs esophageal motility disorder. Keep NPO at midnight. Qualifiers: Dysphagia type: unspecified Qualified Code(s): R13.10 - Dysphagia, unspecified (3) Nausea & vomiting Status: Acute Assessment and plan: Resolved. Qualifiers: Vomiting type: unspecified Vomiting Intractability: non-intractable Qualified Code(s): R11.2 - Nausea with vomiting, unspecified (4) Periprosthetic fracture around internal prosthetic hip joint Status: Acute Qualifiers: Encounter type: initial encounter Laterality: right Qualified Code(s): M97.01XA - Periprosthetic fracture around internal prosthetic right hip joint, initial encounter; T84.040A - Periprosthetic fracture around internal prosthetic right hip joint, initial encounter - Time Spent With Patient Total time spent is greater than 50% in coordination of care (as documented) at patient's floor/unit and/or counseling patient: GI History of Present Illness - Data of Consult Patient: new to practice Consult date: 08/11/18 Requesting Physician: Turner Laguerre - Consult Narrative Reason for consult: N/V, abd pain History of present illness: Ms. Leahy is a 83 year old female with PMHx of COPD, HTN, cholecystectomy, GERD, hip replacement who presented with right hip pain after fall. Imaging showed nondisplaced femur fracture. Ortho was consulted, and no surgery indicated at this time. We were consulted to evaluate nausea, vomiting, and epigastric pain. She reports reflux symptoms worsening over the past 2-3 months and describes pain as "swallowing battery acid". She also complains of dysphagia with solids feeling like they get stuck in her lower esophagus. She states she was having nausea but states it has resolved. Procedures: None NSAIDs: None Anticoagulation: None Past Med Surg Social Fam HX - Past Medical History Medical history: COPD, hypertension, osteoporosis Additional medical history: spinal stenosis, Psychiatric history: depression - Past Surgical History Surgical History: cholecystectomy, hip replacement Additional surgical history: explor lap, spinal sx, left foot sx x2, bilateral hip replacemnts - Social History Smoking Status: Former smoker Smokeless Tobacco Status: No Alcohol use: occasionally Drug use: none - Family History Mother Living Status: Hx Family Musculoskeletal Disorders: No Father Living Status: Hx Family Musculoskeletal Disorders: No - Gastrointestinal Gastrointestinal: Present: as per HPI - Constitutional Constitutional: as per HPI - EENT Eyes: as per HPI Ears: Present: as per HPI Nose, mouth and throat: Present: as per HPI - Cardiovascular Cardiovascular ROS: Present: as per HPI - Respiratory Respiratory IM: Present: as per HPI - Genitourinary Genitourinary: Absent: change in color, Urinary frequency - Neurological ROS Neurological GI: Present: as per HPI - Hematologic/Lymphatic Hematologic/Lymphatic pediatric: Present: as per HPI - Musculoskeletal Musculoskeletal ROS GI: Present: as per HPI - Integumentary Integumentary GI: Present: as per HPI - Psychiatric ROS Psychiatric GI: Present: as per HPI - Endocrine Endocrine IM: Present: as per HPI - Constitutional Vitals: Temp Pulse Resp BP Pulse Ox 98.2 F 86 15 144/78 96 08/11/18 10:00 08/11/18 10:00 08/11/18 10:00 08/11/18 10:08/11/18 10:00 General appearance: Present: A&O X 3, no acute distress, answers questions appropriately - Head Head exam: Present: atraumatic, normocephalic - Eye Eye exam: Present: normal appearance, sclera anicteric - ENT ENT exam: Present: mucous membranes moist - Neck Neck exam general surgery: Present: normal inspection, trachea midline - Respiratory Respiratory exam: Present: CTAB. Absent: rales, rhonchi, wheezes - Cardiovascular Cardiovascular exam: Present: RRR, +S1, +S2 - GI/Abdominal GI/Abdominal exam: Present: soft, tenderness (epigastric tenderness), no peritoneal signs. Absent: distended, firm, guarding - Rectal Rectal exam: Present: deferred - Extremities Exam Extremities exam: Present: warm - Neurological Exam Neurological exam: Present: no focal deficits - Psychiatric Psychiatric exam: Present: normal affect, normal mood - Skin Skin exam: Present: dry, intact, normal color, warm Results - Labs CBC & Chem 7: 08/10/18 03:55 08/10/18 03:55 - ABG ABG results: PT/INR, D-dimer PT 12.5 Seconds (9.4-12.1) H 08/08/18 06:55 Consult Discharge Plan - Plan Additional Instructions: Non weight bearing to right leg. Followup with GI in 4 weeks for repeat endoscopy in 6 weeks (web request placed for appt to be made by GI office). Followup with Dr. Calles 08/17/18 @ 10:45am. Referrals: Cecil Russell MD [Partnered Physician] - (Web request placed for 4 week followup for 6 week endoscopy repeat.) Logan Calles MD [Partnered Physician] - 08/17/18 10:45 am Prescriptions: LORazepam [Ativan] 1 mg PO BID 5 Days #10 tablet HYDROcodone/Acet 5/325 mg [Clark 5-325 mg] 1 tab PO TID 5 Days #18 tablet <Cecil Russell - Last Filed: 08/16/18 05:41> Date of Encounter: 08/11/18 - Time Spent With Patient Total time spent is greater than 50% in coordination of care (as documented) at patient's floor/unit and/or counseling patient: GI History of Present Illness - Data of Consult Requesting Physician: Turner Laguerre - Consult Narrative History of present illness: Ms. Leahy is a 83 year old female - Constitutional Vitals: Temp Pulse Resp BP Pulse Ox 98.0 F 91 18 166/76 94 08/13/18 15:46 08/13/18 15:46 08/13/18 15:46 08/13/18 15:46 08/13/18 15:46 Results - Labs CBC & Chem 7: 08/13/18 04:42 08/13/18 04:42 - ABG ABG results: PT/INR, D-dimer PT 12.5 Seconds (9.4-12.1) H 08/08/18 06:55 - Attending Attestation I have personally performed a face to face evaluation on this patient. I have reviewed and agree with the care plan. History and Exam by me shows:
--- NOTE | 2018-08-11 15:47 | Internal Med Progress Note ---
Hospitalist Progress Note - Encounter Date of Encounter: 08/11/18 Time of Encounter: 11:00 - Subjective Interval History: Patient is an 83-year-old female who presented status post fall with right hip pain found to have right nondisplaced femur fracture now with dysphagia. Orthopedics with recommendations for medical management with non-weight bearing and PT/OT. GI consulted with recommendations for EGD for evaluation of dysphagia on 08/12/18; any results patient will be discharged to shelter facility for strengthening conditioning. - Exam Vitals: Temp Pulse Resp BP Pulse Ox 98.2 F 86 15 144/78 96 08/11/18 10:00 08/11/18 10:00 08/11/18 10:00 08/11/18 10:00 08/11/18 10:00 Exam: Gen.: Nonacute distress, alert and oriented 3 ENT: Mucosal membranes moist Respiratory: Lungs are clear to auscultation bilaterally without any wheezing rhonchi or rales Cardiovascular: Normal S1 and S2 regular rate rhythm no murmurs rubs or gallops Abdomen: Soft, nontender and nondistended with positive bowel sounds Extremities: No lower extremity edema Skin: Normal color - Assessment and Plan (1) Dysphagia Current Visit: Yes Status: Acute Assessment and Plan: GI consulted with recommendations for EGD for evaluation of dysphagia on 08/12/18 (2) Left displaced femoral neck fracture Current Visit: No Status: Acute Assessment and Plan: Patient presented status post fall with right hip pain found to have right nondisplaced femur fracture. Orthopedics with recommendations for medical management with non-weight bearing and PT/OT. DVT prophylaxis with Xarelto 10 mg daily for 30 days (3) GERD (gastroesophageal reflux disease) Current Visit: Yes Status: Acute Assessment and Plan: Continue IV Protonix Scheduled for EGD as above (4) Hypertension Current Visit: Yes Status: Chronic Assessment and Plan: Continue home dose of clonidine and metoprolol (5) HLD (hyperlipidemia) Current Visit: No Status: Chronic Assessment and Plan: Continue statin (6) COPD (chronic obstructive pulmonary disease) Current Visit: Yes Status: Chronic Assessment and Plan: Dual nebs as needed DVT Prophylaxis: On Xarelto as above - Time Spent with Patient Total time spent is greater than 50% in coordination of care (as documented) at patient's floor/unit and/or counseling patient: Internal Medicine: Result - Labs CBC & Chem 7: 05/07/19 03:55 08/10/18 03:55 - ABG Interpretation ABG results: PT/INR, D-dimer PT 12.5 Seconds (9.4-12.1) H 08/08/18 06:55 Consult Discharge Plan - Plan Referrals: Britney Rangel [employer] [facility] [employer] [employer] [Primary Care Provider] - (1) Dysphagia Qualifiers: Dysphagia type: unspecified Qualified Code(s): R13.10 - Dysphagia, unspecified (3) GERD (gastroesophageal reflux disease) Qualifiers: Esophagitis presence: esophagitis presence not specified Qualified Code(s): K21.9 - Gastro-esophageal reflux disease without esophagitis (4) Hypertension Qualifiers: Hypertension type: essential hypertension Qualified Code(s): I10 - Essential (primary) hypertension (5) HLD (hyperlipidemia) Qualifiers: Hyperlipidemia type: unspecified Qualified Code(s): E78.5 - Hyperlipidemia, unspecified (6) COPD (chronic obstructive pulmonary disease) Qualifiers: COPD type: unspecified COPD Qualified Code(s): J44.9 - Chronic obstructive pulmonary disease, unspecified
[2018-08-11] MEDS: *HR* Rivaroxaban 10 MG TABLET PO SCH (16:58)
--- NOTE | 2018-08-11 17:21 | Anesthesia Evaluation PreOp ---
Date of Encounter: 08/11/18 Time of Encounter: 17:55 - Past History Planned Operation: EGD Cardiac History: HTN, Hyperlipidemia Pulmonary History: Former smoker (quit 2 years ago), COPD COMMERCIAL CORRESPONDENT History: Denies Any Significant HX Other Medical History: GERD, Other (depression) Anesthesia History: No Prior Anesthetic Complications, Past Anesthesia Alcohol Use: occasionally Drug use: none Medications and Allergies Docusate Sodium [Dulcolax Stool Softener] 200 mg PO DAILY 09/05/17 [History] Duloxetine HCl 30 mg PO QAM 09/05/17 [History] Losartan/Hydrochlorothiazide [Losartan-Hctz 100-12.5 mg Tab] 1 tab PO DAILY 09/05/17 [History] Metoprolol Succinate 100 mg PO QAM 09/05/17 [History] Pravastatin Sodium [Pravachol] 20 mg PO DAILY 09/05/17 [History] Ranitidine HCl [Acid Grader Marker] 150 mg PO BID 09/05/17 [History] cloNIDine HCl [Clonidine HCl] 0.1 tab PO HS 09/05/17 [History] HYDROcodone/Acet 5/325 mg [Homer 5-325 mg] 1 tab PO TID 08/09/18 [History] LORazepam [Ativan] 1 mg PO BID 08/09/18 [History] Lidocaine Patch [Lidoderm 5% patch] 1 each TP DAILY 08/09/18 [History] Oxybutynin Chloride [Ditropan Xl] 10 mg PO DAILY 08/09/18 [History] Allergy/AdvReac Type Severity Reaction Status Date / Time oxycodone [Oxycodone] Allergy Hallucinati Verified 08/09/18 11:03 ng Sulfa (Sulfonamide Allergy Hives Verified 08/09/18 11:03 Antibiotics) Penicillins AdvReac "BROKE Verified 08/09/18 11:03 OUT/JOINTS ACHED" - Meds/Allergy Pre-op Review Medications Reviewed: Yes Allergies Reviewed: Yes Beta Blockers on Current Med List: Yes If Beta Blockers taken, Date/Time (Last Dose taken): 08/11/2018 at 0835 Anesthesia Results - Labs 08/10/18 03:55 08/10/18 03:55 - Imaging EKG: report reviewed (08/08/2018 SINUS RHYTHM RIGHT BUNDLE BRANCH BLOCK LEFT ANTERIOR FASCICULAR BLOCK) Additional studies: TTE 09/04/2017: Tachycardic, HR 100-110's. LVEF 70%. Mild increased LVOT gradient at rest, PG 12 mmHg. Normal right ventricular structure and function. Mild tricuspid regurgitation. Moderate pulmonary hypertension. Estimated RVSP is 56 mmHg. Anesthesia Exam Vital Signs/O2 Sat, Most Current Temp Pulse Resp BP Pulse Ox 98 F 81 16 138/76 95 08/11/18 14:00 08/11/18 14:00 08/11/18 14:00 08/11/18 14:00 08/11/18 14:00 Height: 5'4.5"/1.64m Weight: 153 lbs/69.7 kg NPO (# of Hours): 8 Pain Scale: 0 Pain Scale Used: Numeric (1 - 10) - HEENT Pupil (Motor): EOMI Mallampati: II Teeth: Normal, Missing Denture Type: Upper: Complete, Lower: Partial Oral Opening: Greater than 3 - COMMERCIAL CORRESPONDENT LOC: Oriented COMMERCIAL CORRESPONDENT Motor: Normal RUE, Normal LUE, Normal RLE, Normal Face, Deficit LLE COMMERCIAL CORRESPONDENT Sensory: Normal: RUE, LUE, RLE, LLE, Face - Cardiac Rhythm: Regular Murmur: None - Pulmonary Breath Sounds: bilateral Clear Respiratory Effort: Symmetrical Anesthesia Assess/Plan ASA Score: 3 Level of consciousness: Cooperative, Oriented, Tranquil Anesthetic Plan: MAC Monitoring Plan: Standard Monitors
[2018-08-11] MEDS: cloNIDine HCl 0.1 MG TABLET PO SCH (20:28)
[2018-08-11] MEDS: *HR* LORazepam 1 MG TABLET PO PRN (20:31)
--- NOTE | 2018-08-11 21:59 | Electrocardiograph Report ---
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
[2018-08-12] MEDS: Pantoprazole 40 MG VIAL IVP SCH ×2 (06:37→18:14)
[2018-08-12] MEDS: *HR* FentaNYL (PF) 100 MCG/2 ML VIAL IVP PRN (06:41)
[2018-08-12 08:50] LABS: Basophils % 0.3 %; Eosinophils # 0.2 K/mcL (0.0-0.6); Hematocrit 34.9 % (35.3-44.9); Hemoglobin 11.4 g/dL (11.5-15.4); Lymphocytes # 1.4 K/mcL (0.6-4.6); Lymphocytes % 14.8 %; Mean Corpuscular HGB Conc 32.7 g/dL (31.6-35.5); Mean Corpuscular Hemoglobin 30.6 pg (28.0-33.3); Mean Corpuscular Volume 93.8 fL (83.0-100.0); Mean Platelet Volume 8.8 fL (9.4-12.4); Monocytes # 1.2 K/mcL (0.0-1.3); Monocytes % 12.7 %; Neutrophils # 6.5 K/mcL (1.6-8.9); Platelet Count 265 K/mcL (140-400); Red Blood Count 3.72 M/mcL (3.82-4.97); Red Cell Distribution Width 12.8 % (11.5-14.5); Segmented Neutrophils % 69.2 %
[2018-08-12 09:01] LABS: Calcium 9.5 mg/dL (8.6-10.3); Carbon Dioxide 30 mEq/L (23-29); Chloride 97 mEq/L (98-107); Glucose 145 mg/dL (70-105); Potassium 3.7 mEq/L (3.5-5.1); Sodium 135 mEq/L (136-145)
[2018-08-12 09:04] LABS: BUN/Creatinine Ratio 17 (6-26); Blood Urea Nitrogen 9 mg/dL (8-23); Osmolality,Calculated 281 (280-300); eGFR For Non-African Americans > 60 (> 60)
[2018-08-12] MEDS: Metoprolol XL (24 HR) Succ 50 MG TAB.ER.24H PO SCH (09:04)
[2018-08-12] MEDS: Famotidine 20 MG TABLET PO SCH (09:10)
[2018-08-12] MEDS: *HR* HYDROcodone/Acet 5/325 mg TABLET PO PRN ×2 (11:35→18:14)
[2018-08-12] MEDS ORDERED: *HR* Propofol 200 MG/20 ML VIAL IVP ONE (14:10)
[2018-08-12] MEDS ORDERED: Lidocaine -MPF 2% 2 ML VIAL ONE (14:11)
--- NOTE | 2018-08-12 15:36 | Anesthesia Evaluation Post Op ---
Date of Encounter: 08/12/18 Time of Encounter: 15:30 - Vital Signs Vital Signs: Vital Signs/O2 Sat/Glucose, Most Current Temp Pulse Resp BP Pulse Ox 08/12/18 15:28 98.1 F 83 18 125/70 93 08/12/18 13:45 98.4 F 82 19 141/68 95 - Lungs Lungs: Clear Ascult./Percussion - Airway Airway: Non-obstructed - Cardiovascular Regular Rate - Mental Status Mental Status: Alert & Oriented, Answers Appropriately - Pain Pain Scale: 0 - Nausea Vomiting Nausea Vomiting: Not Present - Hydration Hydration: NPO - Discharge PostOp Status: Transfer Patient to floor
[2018-08-12] MEDS: *HR* Rivaroxaban 10 MG TABLET PO SCH (18:14)
--- NOTE | 2018-08-12 18:26 | Internal Med Progress Note ---
Hospitalist Progress Note - Encounter Date of Encounter: 08/12/18 Time of Encounter: 11:00 - Subjective Interval History: Patient is an 83-year-old female who presented status post fall with right hip pain found to have right nondisplaced femur fracture now with dysphagia. Orthopedics with recommendations for medical management with non-weight bearing and PT/OT. GI consulted with recommendations for EGD for evaluation of dysphagia today - Exam Vitals: Temp Pulse Resp BP Pulse Ox 98.1 F 83 18 125/70 93 08/12/18 15:28 08/12/18 15:28 08/12/18 15:28 08/12/18 15:28 08/12/18 15:28 Exam: Gen.: Nonacute distress, alert and oriented 3 ENT: Mucosal membranes moist Respiratory: Lungs are clear to auscultation bilaterally without any wheezing rhonchi or rales Cardiovascular: Normal S1 and S2 regular rate rhythm no murmurs rubs or gallops Abdomen: Soft, nontender and nondistended with positive bowel sounds Extremities: No lower extremity edema Skin: Normal color - Assessment and Plan (1) Dysphagia Current Visit: Yes Status: Acute Assessment and Plan: GI consulted with recommendations for EGD for evaluation of dysphagia which showed esophageal ulcers and gastritis She will follow-up with GI for repeat upper endoscopy in 6 weeks and office visit in 4 weeks (2) Left displaced femoral neck fracture Current Visit: No Status: Acute Assessment and Plan: Patient presented status post fall with right hip pain found to have right nondisplaced femur fracture. Orthopedics with recommendations for medical management with non-weight bearing and PT/OT. DVT prophylaxis with Xarelto 10 mg daily for 30 days (3) GERD (gastroesophageal reflux disease) Current Visit: Yes Status: Acute Assessment and Plan: Continue IV Protonix EGD as above (4) Hypertension Current Visit: Yes Status: Chronic Assessment and Plan: Continue home dose of clonidine and metoprolol (5) HLD (hyperlipidemia) Current Visit: No Status: Chronic Assessment and Plan: Continue statin (6) COPD (chronic obstructive pulmonary disease) Current Visit: Yes Status: Chronic Assessment and Plan: Dual nebs as needed DVT Prophylaxis: On Xarelto as above - Time Spent with Patient Total time spent is greater than 50% in coordination of care (as documented) at patient's floor/unit and/or counseling patient: Internal Medicine: Result - Labs CBC & Chem 7: 08/12/18 08:26 08/12/18 08:26 Labs: Short CBC 08/12/18 Range/Units 08:26 WBC 9.4 (4.3-11.1) K/mcL Hgb 11.4 L (11.5-15.4) g/dL Hct 34.9 L (35.3-44.9) % Plt Count 265 (140-400) K/mcL Neutrophils # 6.5 (1.6-8.9) K/mcL BMP 08/12/18 08:26 Sodium 135 L Potassium 3.7 Chloride 97 L Carbon Dioxide 30 H BUN 9 Creatinine 0.52 L Glucose 145 H Calcium 9.5 - ABG Interpretation ABG results: PT/INR, D-dimer PT 12.5 Seconds (9.4-12.1) H 08/08/18 06:55 Consult Discharge Plan - Plan Referrals: Britney Rangel, [employer] OPERATOR [Primary Care Provider] - (1) Dysphagia Qualifiers: Dysphagia type: unspecified Qualified Code(s): R13.10 - Dysphagia, unspeci fied (3) GERD (gastroesophageal reflux disease) Qualifiers: Esophagitis presence: esophagitis presence not specified Qualified Code(s): K21.9 - Gastro-esophageal reflux disease without esophagitis (4) Hypertension Qualifiers: Hypertension type: essential hypertension Qualified Code(s): I10 - Essential (primary) hypertension (5) HLD (hyperlipidemia) Qualifiers: Hyperlipidemia type: unspecified Qualified Code(s): E78.5 - Hyperlipidemia, unspecified (6) COPD (chronic obstructive pulmonary disease) Qualifiers: COPD type: unspecified COPD Qualified Code(s): J44.9 - Chronic obstructive pulmonary disease, unspecified
[2018-08-12] MEDS: cloNIDine HCl 0.1 MG TABLET PO SCH (22:21)
[2018-08-13] MEDS: *HR* HYDROcodone/Acet 5/325 mg TABLET PO PRN ×2 (04:03→16:42)
[2018-08-13 05:49] LABS: Basophils # 0.1 K/mcL (0.0-0.2); Basophils % 0.6 %; Eosinophils # 0.2 K/mcL (0.0-0.6); Eosinophils % 2.9 %; Hematocrit 36.9 % (35.3-44.9); Hemoglobin 11.7 g/dL (11.5-15.4); Immature Granulocytes % 1.3 % (0-4); Lymphocytes # 1.5 K/mcL (0.6-4.6); Lymphocytes % 17.5 %; Mean Corpuscular HGB Conc 31.7 g/dL (31.6-35.5); Mean Corpuscular Hemoglobin 30.1 pg (28.0-33.3); Mean Corpuscular Volume 94.9 fL (83.0-100.0); Mean Platelet Volume 9.1 fL (9.4-12.4); Monocytes # 1.2 K/mcL (0.0-1.3); Neutrophils # 5.3 K/mcL (1.6-8.9); Platelet Count 297 K/mcL (140-400); Red Blood Count 3.89 M/mcL (3.82-4.97); Red Cell Distribution Width 13.2 % (11.5-14.5); Segmented Neutrophils % 63.7 %
[2018-08-13 06:15] LABS: BUN/Creatinine Ratio 15 (6-26); Blood Urea Nitrogen 9 mg/dL (8-23); Calcium 9.4 mg/dL (8.6-10.3); Carbon Dioxide 30 mEq/L (23-29); Chloride 97 mEq/L (98-107); Glucose 121 mg/dL (70-105); Osmolality,Calculated 282 (280-300); Potassium 3.7 mEq/L (3.5-5.1); Sodium 136 mEq/L (136-145); eGFR For Non-African Americans > 60 (> 60)
[2018-08-13] MEDS: Pantoprazole 40 MG VIAL IVP SCH (06:20)
[2018-08-13] MEDS: Metoprolol XL (24 HR) Succ 50 MG TAB.ER.24H PO SCH (09:52)
[2018-08-13] MEDS: Famotidine 20 MG TABLET PO SCH (09:52)
--- NOTE | 2018-08-13 10:46 | Discharge Summary ---
Orders not resulted at time of discharge: Pending orders 08/09/18 17:11 Culture,Blood [BC] Routine 08/12/18 15:08 Surgical Pathology [PTH] Routine Date of Encounter: 08/13/18 Time of Encounter: 11:00 - Discharge Diagnosis (1) HLD (hyperlipidemia) Priority: Secondary Status: Chronic Qualifiers: Hyperlipidemia type: unspecified Qualified Code(s): E78.5 - Hyperlipidemia, unspecified (2) Dysphagia Priority: Secondary Status: Acute Qualifiers: Dysphagia type: unspecified Qualified Code(s): R13.10 - Dysphagia, unspecified (3) Left displaced femoral neck fracture Priority: Primary Status: Acute (4) GERD (gastroesophageal reflux disease) Priority: Secondary Status: Acute Qualifiers: Esophagitis presence: esophagitis presence not specified Qualified Code(s): K21.9 - Gastro-esophageal reflux disease without esophagitis (5) Hypertension Priority: Secondary Status: Chronic Qualifiers: Hypertension type: essential hypertension Qualified Code(s): I10 - Essential (primary) hypertension (6) COPD (chronic obstructive pulmonary disease) Priority: Secondary Status: Chronic Qualifiers: COPD type: unspecified COPD Qualified Code(s): J44.9 - Chronic obstructive pulmonary disease, unspecified Hospital course: Patient is an 83-year-old female who presented from [facility] ER after sustaining a mechanical fall and injuring herself. She fell on her right side and sustained a proximal femur fracture. Workup and imaging were performed at [facility] and transfer request was made to [facility] for orthopedic consultation and surgical repair. Patients hospital stay orthopedics consulted with recommendations for medical management with non-weight bearing and PT/OT. Subsequently, PT/OT consulted with recommendations for shelter facility for strengthening conditioning Patient also developed dysphagia during hospital stay and as a result GI was consulted with recommendations for EGD for evaluation which showed esophageal ulcers and gastritis with recommendations for repeat endoscopy in 6 weeks to check for healing and follow-up as an outpatient with GI in 4 weeks. She will be started on Carafate and oral PPI. She will now be discharged to shelter facility for strengthening rehabilitation. - Time Spent with Patient Total time spent providing and/or coordinating discharge services: - Discharge Medications Prescriptions: New Sucralfate [Carafate] 1 gm PO QIDAC udc Rivaroxaban [Xarelto] 10 mg PO 1700 30 Days #30 tablet Continued cloNIDine HCl [Clonidine HCl] 0.1 tab PO HS Duloxetine HCl 30 mg PO QAM Pravastatin Sodium [Pravachol] 20 mg PO DAILY Ranitidine HCl [Acid Entry Level Java Developer] 150 mg PO BID Losartan/Hydrochlorothiazide [Losartan-Hctz 100-12.5 mg Tab] 1 tab PO DAILY Metoprolol Succinate 100 mg PO QAM Docusate Sodium [Dulcolax Stool Softener] 200 mg PO DAILY Oxybutynin Chloride [Ditropan Xl] 10 mg PO DAILY Lidocaine Patch [Lidoderm 5% patch] 1 each TP DAILY LORazepam [Ativan] 1 mg PO BID 5 Days #10 tablet HYDROcodone/Acet 5/325 mg [[place] 5-325 mg] 1 tab PO TID 5 Days #18 tablet Home Medications: Docusate Sodium [Dulcolax Stool Softener] 200 mg PO DAILY 09/05/17 [History] Duloxetine HCl 30 mg PO QAM 09/05/17 [History] Losartan/Hydrochlorothiazide [Losartan-Hctz 100-12.5 mg Tab] 1 tab PO DAILY 09/05/17 [History] Metoprolol Succinate 100 mg PO QAM 09/05/17 [History] Pravastatin Sodium [Pravachol] 20 mg PO DAILY 09/05/17 [History] Ranitidine HCl [Acid Entry Level Java Developer] 150 mg PO BID 09/05/17 [History] cloNIDine HCl [Clonidine HCl] 0.1 tab PO HS 09/05/17 [History] Lidocaine Patch [Lidoderm 5% patch] 1 each TP DAILY 08/09/18 [History] Oxybutynin Chloride [Ditropan Xl] 10 mg PO DAILY 08/09/18 [History] HYDROcodone/Acet 5/325 mg [D[place]den 5-325 mg] 1 tab PO TID 5 Days #18 tablet 08/13/18 [Rx] LORazepam [Ativan] 1 mg PO BID 5 Days #10 tablet 08/13/18 [Rx] Rivaroxaban [Xarelto] 10 mg PO 1700 30 Days #30 tablet 08/13/18 [Rx] Sucralfate [Carafate] 1 gm PO QIDAC udc 08/13/18 [Rx] Allergies/Adverse Reactions: Allergy/AdvReac Type Severity Reaction Status Date / Time oxycodone [Oxycodone] Allergy Hallucinati Verified 08/09/18 11:03 ng Sulfa (Sulfonamide Allergy Hives Verified 08/09/18 11:03 Antibiotics) Penicillins AdvReac "BROKE Verified 08/09/18 11:03 OUT/JOINTS ACHED" Date of admission: 08/08/18 03:27 Primary care physician: Britney Rangel CNP Consults: 08/08/18 03:31 Consult to Physician [CONS] Routine Consulting Provider: Elmer Butler Reason for Consult: hip fracture Call Completed: No 08/08/18 11:41 Consult to Occupational Therapy [CONS] Routine Comment: Evaluate, develop and implement POC Reason for Consult: discharge planning, non op fractures Does patient have active BEDREST order?: No Is patient medically & hemodynamically stable?: Yes Consult to Physical Therapy [CONS] Routine Comment: Evaluate, develop and implement POC Reason for Consult: discharge planning, non op fractures Does patient have active BEDREST order?: No Is patient medically & hemodynamically stable?: Yes 08/08/18 22:48 Consult to Psych Therapist [CONS] Routine Reason for SW Consult: POSSIBLE SNF PLACEMENT 08/11/18 08:50 Consult to Gastroenterology [CONS] Routine Consulting Provider: Emma Borrero Reason for Consult: Nausea/vomiting for several days; severe epigastric pain unrelieved by Pepcid for several days Call Completed: No - Constitutional Vitals: Temp Pulse Resp BP Pulse Ox 97.4 F L 87 16 136/72 93 08/13/18 07:13 08/13/18 07:13 08/13/18 07:13 08/13/18 07:13 08/13/18 07:13 General appearance: Present: cooperative, A&O X 3, pleasant, answers questions appropriately Exam: Gen.: Nonacute distress, alert and oriented 3 Skin: Normal color - Patient Status Disposition: Transfer SNF - Discharge Instructions Follow Up With: Cecil Russell MD [Partnered Physician] - (Web request placed for 4 week followup for 6 week endoscopy repeat.) Logan Calles MD [Partnered Physician] - 08/17/18 10:45 am Additional Instructions: Non weight bearing to right leg. Followup with GI in 4 weeks for repeat endoscopy in 6 weeks (web request placed for appt to be made by GI office). Followup with Dr. Calles 08/17/18 @ 10:45am.
--- NOTE | 2018-08-13 13:21 | Physician Discharge Referral ---
ExtendedCare Referral Info Institutional Level of Care: Skilled - Diagnosis (1) Dysphagia Status: Acute (2) Left displaced femoral neck fracture Status: Acute (3) GERD (gastroesophageal reflux disease) Status: Acute (4) Hypertension Status: Chronic (5) HLD (hyperlipidemia) Status: Chronic (6) COPD (chronic obstructive pulmonary disease) Status: Chronic - Transfer Medications Prescriptions: LORazepam [Ativan] 1 mg PO BID 5 Days #10 tablet HYDROcodone/Acet 5/325 mg [Elsie 5-325 mg] 1 tab PO TID 5 Days #18 tablet Home Medications: Docusate Sodium [Dulcolax Stool Softener] 200 mg PO DAILY 09/05/17 [History] Duloxetine HCl 30 mg PO QAM 09/05/17 [History] Losartan/Hydrochlorothiazide [Losartan-Hctz 100-12.5 mg Tab] 1 tab PO DAILY 09/05/17 [History] Metoprolol Succinate 100 mg PO QAM 09/05/17 [History] Pravastatin Sodium [Pravachol] 20 mg PO DAILY 09/05/17 [History] Ranitidine HCl [Acid Chopper Feeder] 150 mg PO BID 09/05/17 [History] cloNIDine HCl [Clonidine HCl] 0.1 tab PO HS 09/05/17 [History] Lidocaine Patch [Lidoderm 5% patch] 1 each TP DAILY 08/09/18 [History] Oxybutynin Chloride [Ditropan Xl] 10 mg PO DAILY 08/09/18 [History] HYDROcodone/Acet 5/325 mg [Elsie 5-325 mg] 1 tab PO TID 5 Days #18 tablet 01/22 [Rx] LORazepam [Ativan] 1 mg PO BID 5 Days #10 tablet 08/13/18 [Rx] Rivaroxaban [Xarelto] 10 mg PO 1700 30 Days #30 tablet 08/13/18 [Rx] Sucralfate [Carafate] 1 gm PO QIDAC [facility] [place] 08/13/18 [Rx] Allergies/Adverse Reactions: Allergy/AdvReac Type Severity Reaction Status Date / Time oxycodone [Oxycodone] Allergy Hallucinati Verified 08/09/18 11:03 ng Sulfa (Sulfonamide Allergy Hives Verified 08/09/18 11:03 Antibiotics) Penicillins AdvReac "BROKE Verified 08/09/18 11:03 OUT/JOINTS ACHED" - Respiratory Orders Smoking Cessation: Smoking cessation has been advised. For more information, call the [place] Tobacco Quit Line at 5-248-UPHA-NOW. CERTIFICATION: I certify that the transfer of the above named patient to an Extended Care Facility is necessary for the continuing treatment of the diagnosis listed. The above information is true and accurate reflection of patient's current condition. Confidential - Redisclosure prohibited without a patient's written consent.
[2018-08-13 15:54] VITALS: BP 166/76
[2018-08-13] MEDS: *HR* LORazepam 1 MG TABLET PO PRN (15:59)
== END 2018-08-13 16:50 | DRG 559 ==
LOC: 3NENU → SUATTDRO 03:27
PROVIDERS: ADMIT Pediatrics; ATTEND Hospitalist
PROC: ENDOEBX (2018-08-12 17:30)

== ENCOUNTER 2018-12-29 19:30 | Inpatient (IN) ==
[2018-12-29] MEDS ORDERED: Ondansetron 4 MG/2 ML VIAL IVP ONE (19:44)
[2018-12-29] MEDS ORDERED: *HR* FentaNYL (PF) 100 MCG/2 ML VIAL IVP ONE (19:44)
--- NOTE | 2018-12-29 20:11 | Emergency Department Note ---
Disposition Clinical Impression: Medication adverse effect Qualifiers: Encounter type: initial encounter Qualified Code(s): T50.905A - Adverse effect of unspecified drugs, medicaments and biological substances, initial encounter Altered mental state Qualifiers: Altered mental status type: unspecified Qualified Code(s): R41.82 - Altered mental status, unspecified Disposition: Admitted As Inpatient Condition: Good Referrals: NONE,PCP [Primary Care Provider] - Forms: ED Satisfaction Letter Time of Disposition: 04:33 (Accepted by Dr. Jolly) Lower Extremity Injury HPI - General Chief Complaint: ED Extremity Injury, Lower Stated Complaint: fall left hip pain Time Seen by Provider: 12/29/18 19:36 Source: patient, family, EMS Mode of arrival: ambulatory Limitations: no limitations Nursing Notes Reviewed: Yes Vital Signs Reviewed: Yes - History of Present Illness HPI Narrative: Patient is an 83-year-old female who presents status post fall. Patient was here at [place] at a office appointment, she went to sit down, missed the seat and fell onto her left hip. Patient is status post left hip replacement by Dr. Calles in September 2018. She was at a Dr. Calles office visit when this occurred. Patient states she did hit her head, did not have loss of consciousness, not on any anticoagulation medications. Patient currently complaining of left hip and left leg pain. She denies numbness, tingling or sensation changes. No weakness. She does have difficulty with ambulation secondary to pain at the lef t hip. She denies unilateral weakness, numbness or tingling. No abdominal pain, nausea or vomiting. No chest pain or shortness of breath. Patient denies any lightheaded or dizziness prior to the fall, chest pain or palpitations. - Related Data Home Medications Medication Instructions Recorded Confirmed Docusate Sodium [Dulcolax Stool 200 mg PO DAILY 09/05/17 08/13/18 Softener] Duloxetine HCl 30 mg PO QAM 09/05/17 08/13/18 Losartan/Hydrochlorothiazide 1 tab PO DAILY 09/05/17 08/09/18 [Losartan-Hctz 100-12.5 mg Tab] Metoprolol Succinate 100 mg PO QAM 09/05/17 08/13/18 Pravastatin Sodium [Pravachol] 20 mg PO DAILY 09/05/17 08/09/18 Ranitidine HCl [Acid Bowling Ball Finisher] 150 mg PO BID 09/05/17 08/09/18 cloNIDine HCl [Clonidine HCl] 0.1 tab PO HS 09/05/17 08/13/18 Lidocaine Patch [Lidoderm 5% patch] 1 each TP DAILY 08/09/18 Oxybutynin Chloride [Ditropan XL] 10 mg PO DAILY 08/09/18 08/09/18 Previous Rx's Medication Instructions Recorded Sucralfate [Carafate] 1 gm PO QIDAC udc 08/13/18 Allergies Allergy/AdvReac Type Severity Reaction Status Date / Time oxycodone [Oxycodone] Allergy Hallucinati Verified 08/09/18 11:03 ng Sulfa (Sulfonamide Allergy Hives Verified 08/09/18 11:03 Antibiotics) Penicillins AdvReac "BROKE Verified 08/09/18 11:03 OUT/JOINTS ACHED" Review of Systems: In addition to that documented in the HPI above, the additional ROS was obtained: General: Denies fever. Denies chills. Denies weight loss. Denies behavioral change. Eyes: Denies visual changes. ENT: Denies nasal congestion. Denies sore throat. Denies hearing change. Cardio: Denies chest pain. Denies palpitations. Respiratory: Denies cough. Denies shortness of breath. Denies wheezing. GI: Denies nausea, Denies vomiting, or diarrhea. Denies hematochezia denies melena. Denies abdominal pain. : Denies dysuria, hematuria, or urinary retention MSK: As per history of present illness Neuro: Denies slurred speech. Denies numbness or tingling. Denies focal weakness. Denies headache. Denies loss of consciousness. Psych: Denies mood changes. All systems ED: reviewed and negative except as stated. Review of Systems: As Per HPI Past Medical History - Past Medical History Medical history: Reports: COPD, hypertension, osteoporosis Surgical history: Reports: cholecystectomy, hip replacement Psychiatric history: Reports: depression - Social History Smoking Status: Former smoker Smokeless Tobacco Status: No Alcohol use: Reports: occasionally Drug use: Reports: none Physical Exam - General Limitations: no limitations General appearance: alert, in no apparent distress - Head Head exam: other (Patient with a small hematoma to the occiput region no active bleeding) - Eye Eye exam: Present: normal appearance, PERRL, EOMI - ENT ENT exam: normal exam, normal oropharynx, mucous membranes moist - Neck Neck exam: Present: normal inspection, full ROM, trachea midline - Chest Chest inspection: Present: normal inspection, symmetric chest wall rise - Respiratory Respiratory exam: Present: normal lung sounds bilaterally - Cardiovascular Cardiovascular exam: Present: regular rate, normal rhythm, normal heart sounds - Abdominal Exam Abdominal exam: Present: soft, Non-Tender. Absent: tenderness, distention, guarding, rebound, rigidity - Extremities Exam Extremities exam: Present: normal capillary refill. Absent: pedal edema - Expanded Lower Extremity Exam Hip/Pelvis exam: Present: other (Patient with tenderness to palpation throughout the left hip, no obvious deformity, pelvis is stable, appears to be slightly internally rotated, no obvious ecchymosis, tissue palpation throughout the entire femur without obvious deformity, no hematoma or erythema) Knee exam: Present: normal inspection. Absent: swelling, deformity Lower leg exam: Present: normal inspection, full ROM. Absent: tenderness, deformity Ankle exam: Present: normal inspection, full ROM. Absent: tenderness, deformity Foot/toe exam: Present: normal inspection, full ROM. Absent: tenderness, deformity Neurovascular/Tendon exam: Absent: motor deficit, sensory deficit, tendon deficit - Back Exam Back exam: Present: normal inspection, full ROM. Absent: tenderness, paraspinal tenderness, vertebral tenderness - Neurological Exam Neurological exam: Present: alert, oriented X3 - Expanded Neurological Exam Patient oriented to: Present: person, place, time Speech: Present: fluid speech Cranial nerves: EOM function (II, III, IV, ): Normal, facial sensation (V): Normal, facial palsy (VII): Normal, spinal accessory function (XI): Normal, tongue deviation (XII): Normal Cerebellar function: finger to nose: Normal, heel to lao: Normal Motor strength - LUE: 5/5 Motor strength - RUE: 5/5 Motor strength - LLE: 5/5 Motor strength - RLE: 5/5 Upper motor neuron exam: thiago neglect: Absent bilaterally Sensory exam upper extremity: light touch: Normal Sensory exam lower extremity: light touch: Normal Coma Scale Eye Opening: Spontaneous Coma Scale Motor Response: Obeys Commands Coma Scale Verbal Response: Oriented Coma Scale Total: 15 Course Vital Signs Temperature 98.7 F 12/29/18 19:35 Pulse Rate 90 12/29/18 19:35 Respiratory Rate 18 12/29/18 19:35 Blood Pressure 175/84 12/29/18 19:35 O2 Sat by Pulse Oximetry 94 12/29/18 19:35 Temperature 98.7 F 12/29/18 19:35 Pulse Rate 89 12/30/18 04:07 Respiratory Rate 18 12/30/18 04:07 Blood Pressure 110/55 12/30/18 04:07 O2 Sat by Pulse Oximetry 100 12/30/18 04:07 Oxygen Delivery Oxygen Delivery Nasal Cannula Extremity Injury, Lower - MDM Narrative Medical decision making narrative: Patient is an 83-year-old female who presents status post fall. Patient was here at [place] at a office appointment, she went to sit down, missed the seat and fell onto her left hip. Patient is status post left hip replacement by Dr. Calles in September 2018. She was at a Dr. Calles office visit when this occurred. Patient states she did hit her head, did not have loss of consciousness, not on any anticoagulation medications. On arrival, patient is in significant pain specifically to the left hip and left femur region, possible deformity however she continues to have muscle contractions and does not handle palpation very well. Patient does have a small hematoma to the posterior occiput region. No active bleeding. Patient vital signs otherwise within normal limits. Patient was given 75 g of fentanyl as well as Flexeril for muscle contractions as well as pain control. On arrival, patient is oriented 3, converses in and able to discuss her fall. She is at her mentation baseline. X-ray of the AP pelvis, left femur and tibia fibula was performed and shows no acute fracture, hardware is in place without acute abnormality. Following pain medication, patient is now able to ambulate without difficulty however at this point in time she appears confused and disoriented, her has left at this point. It appears that she has disorientation and confusion secondary to medications. Repeat ambulation as well as mentation checks were performed, patient was observed in the ER for a total of 6 hours without mentation change, she remains somewhat disoriented and confused, do not feel as though she is safe at this time to be discharged home. While here she has had a total of 4 re-evaluations which have been relatively unchanged. Suspect this is secondary to medication causing this disorientation. Laboratory work performed including CBC, BMP are relatively unremarkable. Given the fall and distracting injury, initial CT of the head as well as cervical spine was performed which showed no acute changes. No sign of intracranial bleed or fracture. Given patient's continued disorientation, patient will be admitted for further evaluation and observation. Patient otherwise remained stable. Normal vital signs. - Differential Diagnosis Likely: fracture - Medical Records Medical records reviewed: Yes I reviewed the patient's medical records. - Lab Data Lab results reviewed: Yes I reviewed the patient's lab results. Result diagrams: 12/30/18 03:12 12/30/18 03:12 Lab Results 12/30/18 12/30/18 Range/Units 03:12 03:12 WBC 12.4 H (4.3-11.1) K/mcL RBC 4.83 (3.82-4.97) M/mcL Hgb 13.3 (11.5-15.4) g/dL Hct 41.4 (35.3-44.9) % MCV 85.7 (83.0-100.0) fL MCH 27.5 L (28.0-33.3) pg MCHC 32.1 (31.6-35.5) g/dL RDW 15.0 H (11.5-14.5) % Plt Count 322 (140-400) K/mcL MPV 8.5 L (9.4-12.4) fL Immature Gran % 0.4 (0-4) % Seg Neutrophils % 74.3 % Lymphocytes % 12.7 % Monocytes % 12.2 % Eosinophils % 0.2 % Basophils % 0.2 % Neutrophils # 9.2 H (1.6-8.9) K/mcL Lymphocytes # 1.6 (0.6-4.6) K/mcL Monocytes # 1.5 H (0.0-1.3) K/mcL Eosinophils # 0.0 (0.0-0.6) K/mcL Basophils # 0.0 (0.0-0.2) K/mcL Sodium 134 L (136-145) mEq/L Potassium 3.6 (3.5-5.1) mEq/L Chloride 95 L (98-107) mEq/L Carbon Dioxide 30 H (23-29) mEq/L BUN 14 (8-23) mg/dL Creatinine 0.72 (0.60-1.20) mg/dL Est GFR ( Amer) > 60 (> 60) Est GFR (Non-Af Amer) > 60 (> 60) BUN/Creatinine Ratio 19 (6-26) Glucose 136 H (70-105) mg/dL Calculated Osmolality 281 (280-300) Calcium 9.9 (8.6-10.3) mg/dL - Radiology Data Radiology results reviewed: Yes I reviewed the patient's radiology results. Tibia/Fibula X-Ray 12/29/18 20:53 IMPRESSION: No acute osseous abnormality. D/ / Cong Cook MD / Cong Cook MD Interpreting Provider: Cong Cook MD Femur X-Ray 12/29/18 20:57 IMPRESSION: No acute abnormalities seen in the left femur D/ / Cong Cook MD / Cong Cook MD Interpreting Provider: Cong Cook MD Pelvis X-Ray 12/29/18 20:57 IMPRESSION: No acute osseous abnormality. D/ / Cong Cook MD / Cong Cook MD Interpreting Provider: Cong Cook MD Cervical Spine CT 12/29/18 21:15 IMPRESSION: No acute abnormality of the cervical spine. Multilevel degenerative changes No significant change identified. D/ / Cong Cook MD / Cong Cook MD Interpreting Provider: Cong Cook MD Head CT 12/29/18 21:15 IMPRESSION: No acute intracranial abnormality. Right scalp hematoma as above. D/ / Oh Rousseau MD / Oh Rousseau MD Interpreting Provider: Oh Rousseau MD
--- NOTE | 2018-12-29 23:04 | Emergency Department Note ---
Disposition Clinical Impression: Medication adverse effect Qualifiers: Encounter type: initial encounter Qualified Code(s): T50.905A - Adverse effect of unspecified drugs, medicaments and biological substances, initial encounter Altered mental state Qualifiers: Altered mental status type: unspecified Qualified Code(s): R41.82 - Altered mental status, unspecified Disposition: Admitted As Inpatient Condition: Good Time of Disposition: 04:33 General Adult HPI - General Chief complaint: ED Extremity Injury, Lower Stated complaint: fall left hip pain Time Seen by Provider: 12/29/18 19:36 Source: patient, family, EMS Limitations: no limitations Nursing Notes Reviewed: Yes Vital Signs Reviewed: Yes - History of Present Illness Pain Scale: 3 - Related Data Home Medications Medication Instructions Recorded Confirmed Docusate Sodium [Dulcolax Stool 200 mg PO DAILY 09/05/17 08/13/18 Softener] Duloxetine HCl 30 mg PO QAM 09/05/17 08/13/18 Losartan/Hydrochlorothiazide 1 tab PO DAILY 09/05/17 08/09/18 [Losartan-Hctz 100-12.5 mg Tab] Metoprolol Succinate 100 mg PO QAM 09/05/17 08/13/18 Pravastatin Sodium [Pravachol] 20 mg PO DAILY 09/05/17 08/09/18 Ranitidine HCl [Acid Operations Director] 150 mg PO BID 09/05/17 08/09/18 cloNIDine HCl [Clonidine HCl] 0.1 tab PO HS 09/05/17 08/13/18 Lidocaine Patch [Lidoderm 5% patch] 1 each TP DAILY 08/09/18 Oxybutynin Chloride [Ditropan XL] 10 mg PO DAILY 08/09/18 08/09/18 Previous Rx's Medication Instructions Recorded Sucralfate [Carafate] 1 gm PO QIDAC c 08/13/18 Allergies Allergy/AdvReac Type Severity Reaction Status Date / Time oxycodone [Oxycodone] Allergy Hallucinati Verified 08/09/18 11:03 ng Sulfa (Sulfonamide Allergy Hives Verified 08/09/18 11:03 Antibiotics) Penicillins AdvReac "BROKE Verified 08/09/18 11:03 OUT/JOINTS ACHED" Past Medical History - Past Medical History Medical history: Reports: COPD, hypertension, osteoporosis Surgical history: Reports: cholecystectomy, hip replacement Psychiatric history: Reports: depression - Social History Smoking Status: Former smoker Smokeless Tobacco Status: No Alcohol use: Reports: occasionally Drug use: Reports: none Physical Exam - General Limitations: no limitations General appearance: alert, in no apparent distress Course Vital Signs Temperature 98.7 F 12/29/18 19:35 Pulse Rate 90 12/29/18 19:35 Respiratory Rate 18 12/29/18 19:35 Blood Pressure 175/84 12/29/18 19:35 O2 Sat by Pulse Oximetry 94 12/29/18 19:35 Temperature 98.7 F 12/29/18 19:35 Pulse Rate 89 12/30/18 04:07 Respiratory Rate 18 12/30/18 04:07 Blood Pressure 110/55 12/30/18 04:07 O2 Sat by Pulse Oximetry 100 12/30/18 04:07 Oxygen Delivery Oxygen Delivery Nasal Cannula Medical Decision Making - Medical Records Medical records reviewed: Yes I reviewed the patient's medical records. - Lab Data Lab results reviewed: Yes I reviewed the patient's lab results. Result diagrams: 12/30/18 03:12 12/30/18 03:12 Lab Results 12/30/18 12/30/18 Range/Units 03:12 03:12 WBC 12.4 H (4.3-11.1) K/mcL RBC 4.83 (3.82-4.97) M/mcL Hgb 13.3 (11.5-15.4) g/dL Hct 41.4 (35.3-44.9) % MCV 85.7 (83.0-100.0) fL MCH 27.5 L (28.0-33.3) pg MCHC 32.1 (31.6-35.5) g/dL RDW 15.0 H (11.5-14.5) % Plt Count 322 (140-400) K/mcL MPV 8.5 L (9.4-12.4) fL Immature Gran % 0.4 (0-4) % Seg Neutrophils % 74.3 % Lymphocytes % 12.7 % Monocytes % 12.2 % Eosinophils % 0.2 % Basophils % 0.2 % Neutrophils # 9.2 H (1.6-8.9) K/mcL Lymphocytes # 1.6 (0.6-4.6) K/mcL Monocytes # 1.5 H (0.0-1.3) K/mcL Eosinophils # 0.0 (0.0-0.6) K/mcL Basophils # 0.0 (0.0-0.2) K/mcL Sodium 134 L (136-145) mEq/L Potassium 3.6 (3.5-5.1) mEq/L Chloride 95 L (98-107) mEq/L Carbon Dioxide 30 H (23-29) mEq/L BUN 14 (8-23) mg/dL Creatinine 0.72 (0.60-1.20) mg/dL Est GFR ( Amer) > 60 (> 60) Est GFR (Non-Af Amer) > 60 (> 60) BUN/Creatinine Ratio 19 (6-26) Glucose 136 H (70-105) mg/dL Calculated Osmolality 281 (280-300) Calcium 9.9 (8.6-10.3) mg/dL - Radiology Data Radiology results reviewed: Yes I reviewed the patient's radiology results. Tibia/Fibula X-Ray 12/29/18 20:53 IMPRESSION: No acute osseous abnormality. D/ / Cong Cook MD / Cong Cook MD Interpreting Provider: Cong Cook MD Femur X-Ray 12/29/18 20:57 IMPRESSION: No acute abnormalities seen in the left femur D/ / Cong Cook MD / Cong Cook MD Interpreting Provider: Cong Cook MD Pelvis X-Ray 12/29/18 20:57 IMPRESSION: No acute osseous abnormality. D/ / Cong Cook MD / Cong Cook MD Interpreting Provider: Cong Cook MD Cervical Spine CT 12/29/18 21:15 IMPRESSION: No acute abnormality of the cervical spine. Multilevel degenerative changes No significant change identified. D/ / Cong Cook MD / Cong Cook MD Interpreting Provider: Cong Cook MD Head CT 12/29/18 21:15 IMPRESSION: No acute intracranial abnormality. Right scalp hematoma as above. D/ / Oh Rousseau MD / Oh Rousseau MD Interpreting Provider: Oh Rousseau MD Attestation Statement - Attestation Attestation: I, Je Rojas MD, personally evaluated this patient and discussed their management with the resident physician. I reviewed the resident's note and agree with the documented findings, medical decision making, and plan of care. 83-year-old female presents to the emergency department with a complaint that she was turning and lost her balance and fell onto her left side and hip. She did hit her head. No loss of consciousness. She complains of severe pain in the left hip. Patient just recently had left hip surgery and was actually here at the clinic for follow-up. On examination patient is a well-developed well-nourished elderly female in no acute distress. She is alert and oriented. No cyanosis or diaphoresis. She does have a hematoma to the scalp. Neck is supple with no midline tenderness. Chest is nontender to palpation. Breath sounds equal bilaterally. Heart regular. Abdomen soft and nontender. There is tenderness palpation over the left hip area. She is holding the left leg flexed and slightly externally rotated. It appears to be shortened but this may just be due to the flexion at the knee. Neurovascular function intact distally. X-ray of the pelvis and left femur and left tib-fib negative for fracture or dislocation. CT of the head and cervical spine showed no acute fracture or intracranial abnormality. Labs reviewed with no significant abnormalities. After clearance patient was able to bear weight and walk on the leg using a wa lker but only with assistance. Patient had good pain relief however is very weak and confused and disoriented after the medication. Patient observed. The emergency department for several hours but continues to be altered from the medication. She was not altered prior to receiving pain medication. I do not feel patient is safe to be discharged home. Her is elderly and unable to assist her care for her. We will consult the hospitalist for admission until patient is more alert and mobile. The hospitalist, Dr. Jolly, was consulted and accepted admission of the patient.
[2018-12-30 03:27] LABS: Basophils % 0.2 %; Eosinophils % 0.2 %; Hematocrit 41.4 % (35.3-44.9); Hemoglobin 13.3 g/dL (11.5-15.4); Immature Granulocytes % 0.4 % (0-4); Lymphocytes # 1.6 K/mcL (0.6-4.6); Lymphocytes % 12.7 %; Mean Corpuscular HGB Conc 32.1 g/dL (31.6-35.5); Mean Corpuscular Hemoglobin 27.5 pg (28.0-33.3); Mean Corpuscular Volume 85.7 fL (83.0-100.0); Mean Platelet Volume 8.5 fL (9.4-12.4); Monocytes # 1.5 K/mcL (0.0-1.3); Monocytes % 12.2 %; Neutrophils # 9.2 K/mcL (1.6-8.9); Platelet Count 322 K/mcL (140-400); Red Blood Count 4.83 M/mcL (3.82-4.97); Segmented Neutrophils % 74.3 %; White Blood Count 12.4 K/mcL (4.3-11.1)
[2018-12-30 03:46] LABS: BUN/Creatinine Ratio 19 (6-26); Blood Urea Nitrogen 14 mg/dL (8-23); Calcium 9.9 mg/dL (8.6-10.3); Carbon Dioxide 30 mEq/L (23-29); Chloride 95 mEq/L (98-107); Glucose 136 mg/dL (70-105); Osmolality,Calculated 281 (280-300); Potassium 3.6 mEq/L (3.5-5.1); Sodium 134 mEq/L (136-145); eGFR For African Americans > 60 (> 60); eGFR For Non-African Americans > 60 (> 60)
[2018-12-30] MEDS ORDERED: 0.9 % Sodium Chloride 1,000 ML IVC ONE (03:48)
[2018-12-30] MEDS ORDERED: Naloxone 0.4 MG/ML INJ IVP PRN (07:25)
[2018-12-30] MEDS ORDERED: Ondansetron 4 MG/2 ML VIAL IVP PRN (07:25)
--- NOTE | 2018-12-30 07:34 | Internal Med History&Physical ---
Date of Encounter: 12/30/18 Time of Encounter: 07:29 Internal Medicine - H&P: HPI Admitted From: Emergency Dept Plans for Post Hospital Care: Transfer Inp Rehab Fac History of present illness: Ms. Leahy is a 83 year old female history of hypertension hyperlipidemia and COPD GERD and prior fractures. She stated she had left hip athroplasty around September 2018 and was having her routine visits with the orthopedic surgeon where she sustained a fall yesterday. She denies any prodrome prior to the falls. She did state that after the fall she had difficulty weightbearing as such was referred to the ED to be evaluated. At the emergency department workup included CT of the cervical spine and CT of the head which was unrevealing and unyielding for any acute abnormality. She has also had radiograph of the left femur, tib/fib which were also negative for fracture. Due to her pain she was administered 75 mcg of fentanyl per report at the ED and patient became transiently altered and hypersomnolent. During encounter with the patient this morning she maintains that she is unable to bear weight but denies any pain. She is agreeable to ECF placement if indicated for rehabilitation Past Med Surg Social Fam HX - Past Medical History Medical history: COPD, hypertension, osteoporosis Additional medical history: spinal stenosis, Psychiatric history: depression - Past Surgical History Surgical History: cholecystectomy, hip replacement Additional surgical history: explor lap, spinal sx, left foot sx x2, bilateral hip replacemnts - Social History Smoking Status: Former smoker Smokeless Tobacco Status: No Alcohol use: occasionally Drug use: none - Family History Mother Living Status: Father Living Status: Internal Medicine - H&P: Meds Docusate Sodium [Dulcolax Stool Softener] 200 mg PO DAILY 09/05/17 [History] Duloxetine HCl 30 mg PO QAM 09/05/17 [History] Losartan/Hydrochlorothiazide [Losartan-Hctz 100-12.5 mg Tab] 1 tab PO DAILY 09/05/17 [History] Metoprolol Succinate 100 mg PO QAM 09/05/17 [History] Pravastatin Sodium [Pravachol] 20 mg PO DAILY 09/05/17 [History] Ranitidine HCl [Acid Computer Security Coordinator] 150 mg PO BID 09/05/17 [History] cloNIDine HCl [Clonidine HCl] 0.1 tab PO HS 09/05/17 [History] Lidocaine Patch [Lidoderm 5% patch] 1 each TP DAILY 08/09/18 [History] Oxybutynin Chloride [Ditropan XL] 10 mg PO DAILY 08/09/18 [History] Sucralfate [Carafate] 1 gm PO QIDAC [facility] [place] 08/13/18 [Rx] Allergy/AdvReac Type Severity Reaction Status Date / Time oxycodone [Oxycodone] Allergy Hallucinati Verified 08/09/18 11:03 ng Sulfa (Sulfonamide Allergy Hives Verified 08/09/18 11:03 Antibiotics) Penicillins AdvReac "BROKE Verified 08/09/18 11:03 OUT/JOINTS ACHED" All Systems PM: A 10-system review of systems was performed and is negative for pertinent findings except as documented above in the HPI. Review of systems: GENERAL: Denies fever, chills, fatigue or night sweats. DERMATOLOGIC: Denies itch, rash or lesions HEENT: Denies headache, blurriness, diplopia or decreased visual acuity, ear pain, tinnitus, rhinorrhea, sinus tenderness or sore throat RESPIRATORY: Denies SOB, cough, hemoptysis or pleuritic chest pain CARDIOVASCULAR: Denies chest pain, LE edema, palpitation or syncope GASTRO INTESTINAL: Denies cramps, nausea/vomiting, diarrhea or constipation, melena MUSCULOSKELATAL: Denies muscle pain/weakness, joint tenderness/pain or swelling but reports inability to bear weight on her left lower extremity PSYCH: Denies worsening anxiety, or depression NEURO: Denies vertigo, dizziness, or ataxia GENITURINARY: Denies dysuria, nocturia or urinary incontinence - Constitutional Vitals: Temp Pulse Resp BP Pulse Ox 99 F 79 18 124/72 98 12/30/18 06:06 12/30/18 06:06 12/30/18 06:06 12/30/18 06:06 12/30/18 06:06 Exam: GENERAL: NAD, A&O x3, pleasant and conversant although somewhat somnolent SKIN: No skin lesions or rashes, non-jaundiced with exception of few abrasions on her bilateral lower extremity EYES: EOMI, PERRLA, no sclera icterus HENT: Head atraumatic, no facial asymmetry, frontal and maxillary sinus non- tender, normal hearing, oropharynx and mucosa dry and without any exudates NECK: No cervical lymphadenopathy, trachea midline, thyroid is palpable does not appear enlarged LUNGS: vesicular breath sounds, clear to auscultation, no wheeze, rhonchi, rales or crackles. Non labored respirations HEART: Normal rate and rhythm, no murmurs or rubs ABDOMEN: soft, non-tender, non-distended, bowel sounds x 4 normoactive EXTRMITIES: No LE asymmetry, No LE edema, pedal pulses 1+ and radial pulses 2 + and equal bilaterally, left hip surgical scar noted healed examination of the right and left hip revealed no erythema warmth or swelling. Palpation of the left and right hip did not elicit pain. Patient deferred on range of motion testing citing pain. nurse joey chaperoned the exam NEURO: Speech and comprehension appears intact. PSYCH: Cooperative, non- anxious or irritable, mood and affect is appropriate Internal Med - H&P Results - Labs CBC & Chem 7: 12/30/18 03:12 12/30/18 03:12 Labs: Short CBC 12/30/18 Range/Units 03:12 WBC 12.4 H (4.3-11.1) K/mcL Hgb 13.3 (11.5-15.4) g/dL Hct 41.4 (35.3-44.9) % Plt Count 322 (140-400) K/mcL Neutrophils # 9.2 H (1.6-8.9) K/mcL BMP 12/30/18 03:12 Sodium 134 L Potassium 3.6 Chloride 95 L Carbon Dioxide 30 H BUN 14 Creatinine 0.72 Glucose 136 H Calcium 9.9 - Impressions ITS Impressions Tibia/Fibula X-Ray 12/29/18 20:53 IMPRESSION: No acute osseous abnormality. D/ / Cong Cook MD / Cong Cook MD Interpreting Provider: Cong Cook MD Femur X-Ray 12/29/18 20:57 IMPRESSION: No acute abnormalities seen in the left femur D/ / Cong Cook MD / Cong Cook MD Interpreting Provider: Cong Cook MD Pelvis X-Ray 12/29/18 20:57 IMPRESSION: No acute osseous abnormality. D/ / Cong Cook MD / Cong Cook MD Interpreting Provider: Cong Cook MD Cervical Spine CT 12/29/18 21:15 IMPRESSION: No acute abnormality of the cervical spine. Multilevel degenerative changes No significant change identified. D/ / Cong Cook MD / Cong Cook MD Interpreting Provider: Cong Cook MD Head CT 12/29/18 21:15 IMPRESSION: No acute intracranial abnormality. Right scalp hematoma as above. D/ / Oh Rousseau MD / Oh Rousseau MD Interpreting Provider: Oh Rousseau MD - Assessment and Plan (1) Acute encephalopathy Current Visit: Yes Status: Acute Assessment and plan: Patient was transiently encephalopathic after receiving 75 g of fentanyl, this morning she appears back to baseline was able to provide history. Work up including CT of the head and laboratory were unrevealing and unyielding. Resolved (2) Left hip pain Current Visit: Yes Status: Chronic Assessment and plan: Patient stated this monitored and unable to bear weight physical examination was unrevealing with regard to erythema warmth or swelling, radiograph of the left femur, pelvis, and two-view of the left tibia fibular no acute abnormalities. We will obtain radiograph of bilateral hip multiple views to better delineate any pathology (3) Status post fall Current Visit: Yes Status: Acute Assessment and plan: Patient stated it was a mechanical fall will place on fall precaution (4) Hyponatremia Current Visit: Yes Status: Acute Assessment and plan: Mild she appears to be euvolemic likely due to poor intake anticipate to improve or she improves her oral intake check sodium in the morning (5) GERD (gastroesophageal reflux disease) Current Visit: Yes Status: Acute Assessment and plan: We will resume her home H2-alisha once meds has been reconciled Qualifiers: Esophagitis presence: esophagitis presence not specified Qualified Code(s): K21.9 - Gastro-esophageal reflux disease without esophagitis (6) COPD (chronic obstructive pulmonary disease) Current Visit: Yes Status: Chronic Assessment and plan: She does not appear to be an exacerbation DuoNeb as needed Qualifiers: COPD type: unspecified COPD Qualified Code(s): J44.9 - Chronic obstructive pulmonary disease, unspecified (7) HLD (hyperlipidemia) Current Visit: Yes Status: Chronic Assessment and plan: Resume statin therapy after med rec. Qualifiers: Hyperlipidemia type: unspecified Qualified Code(s): E78.5 - Hyperlipidemia, unspecified (8) HTN (hypertension) Current Visit: Yes Status: Chronic Assessment and plan: Will resume home meds is on lisinopril and chlorothiazide and metoprolol Qualifiers: Hypertension type: essential hypertension Qualified Code(s): I10 - Essential (primary) hypertension (9) DVT prophylaxis Current Visit: Yes Status: Acute Assessment and plan: Heparin per protocol - Time Spent With Patient Total time spent is greater than 50% in coordination of care (as documented) at patient's floor/unit and/or counseling patient:
[2018-12-30] MEDS ORDERED: Ipratropium/Albuterol Neb 3 ML IH PRN (07:48)
[2018-12-30] MEDS ORDERED: traMADol 50 MG TABLET PO PRN (07:58)
[2018-12-30] MEDS: Metoprolol XL (24 HR) Succ 50 MG TAB.ER.24H PO SCH (08:46)
--- NOTE | 2018-12-30 09:19 | Event Note ---
Date of Encounter: 12/30/18 Time of Encounter: 13:30 Patient seen as courtesy visit. Xrays reviewed demonstrating no fractures. Patient encouraged to participate in therapy evaluation Keep outpatient orthopedic follow up as scheduled.
[2018-12-30] MEDS: *HR* Heparin 5,000 UNIT/ML VIAL SQ SCH ×2 (14:01→20:44)
[2018-12-30] MEDS: Saliva Stimulant 100ml BOTTLE PO PRN ×2 (18:26→20:44)
[2018-12-30] MEDS ORDERED: *HR* HYDROcodone/Acet 7.5/325 mg TABLET PO ONE (21:22)
[2018-12-30] MEDS: MOM Conc 10 ML UD.LIQ PO SCH (22:19)
[2018-12-31] MEDS: Acetaminophen 325 MG TABLET PO PRN ×2 (03:28→14:03)
[2018-12-31] MEDS: Saliva Stimulant 100ml BOTTLE PO PRN (03:28)
[2018-12-31 05:26] LABS: Basophils % 0.2 %; Eosinophils # 0.2 K/mcL (0.0-0.6); Eosinophils % 1.7 %; Hematocrit 37.5 % (35.3-44.9); Immature Granulocytes % 0.4 % (0-4); Lymphocytes # 1.8 K/mcL (0.6-4.6); Lymphocytes % 14.6 %; Mean Corpuscular HGB Conc 30.9 g/dL (31.6-35.5); Mean Corpuscular Hemoglobin 27.2 pg (28.0-33.3); Mean Corpuscular Volume 87.8 fL (83.0-100.0); Mean Platelet Volume 8.6 fL (9.4-12.4); Monocytes # 1.6 K/mcL (0.0-1.3); Monocytes % 13.4 %; Neutrophils # 8.4 K/mcL (1.6-8.9); Platelet Count 282 K/mcL (140-400); Red Blood Count 4.27 M/mcL (3.82-4.97); Red Cell Distribution Width 14.9 % (11.5-14.5); Segmented Neutrophils % 69.7 %
[2018-12-31 05:27] LABS: Hemoglobin 11.6 g/dL (11.5-15.4)
[2018-12-31 05:42] LABS: BUN/Creatinine Ratio 21 (6-26); Blood Urea Nitrogen 12 mg/dL (8-23); Calcium 9.1 mg/dL (8.6-10.3); Carbon Dioxide 30 mEq/L (23-29); Chloride 100 mEq/L (98-107); Glucose 121 mg/dL (70-105); Magnesium 2.1 mg/dL (1.6-2.6); Osmolality,Calculated 285 (280-300); Potassium 3.6 mEq/L (3.5-5.1); Sodium 137 mEq/L (136-145); eGFR For African Americans > 60 (> 60); eGFR For Non-African Americans > 60 (> 60)
[2018-12-31] MEDS: *HR* Heparin 5,000 UNIT/ML VIAL SQ SCH ×3 (06:50→22:44)
[2018-12-31] MEDS: Metoprolol XL (24 HR) Succ 50 MG TAB.ER.24H PO SCH (09:45)
[2018-12-31] MEDS ORDERED: *HR* HYDROcodone/Acet 5/325 mg TABLET PO PRN ×2 (14:30→15:07)
--- NOTE | 2018-12-31 15:02 | Event Note ---
<Opal Cisneros - Last Filed: 12/31/18 15:00> Date of Encounter: 12/31/18 Time of Encounter: 09:30 PC [id number] SUBJECTIVE: HPI: Patient is an 83 year old female with a PMHx of HTN, HLD, COPD, GERD, and prior fractures who presented to the ED after a fall. Patient states she was leaving the hospital from a prior appointment and fell waiting for her car. Patient had a L hip arthroplasty in September 2018. Patient was transiently altered and hypersomnolent while in the ED. Patient states that she had a difficult time walking after the fall. Patient states she is currently in pain all over and rates it a 5-6/10. Patient states her last bowel movement was 4 days ago. ROS: Patient denies CP, SOB, N/V/D, abdominal pain. Positive for Constipation, L hip pain PMHx: HTN, HLD, COPD, GERD, Fractures SurgHx: Cholecystectomy, bilateral hip replacements, ExLap, Spinal surgery, Left foot surgery, Social: Former smoker Allergies: oxycodone, sulfa, Penicillin OBJECTIVE: Vitals: Temp:97.6, BP:127/68, HR:79, RR:15, O2:96% (2L NC) General: Patient is agitated in bed, sitting comfortably, eating breakfast Head: Swelling on right side Neck: Non-traumatic, ROM intact Cardiovascular: Normal S1 and S2, no murmurs, gallops, rubs Respiratory: Clear to auscultation; no rales, ronchi, or wheezing Extremities: well healed L hip scar Labs: WBC at 12.0, it was 12.4 yesterday Imaging: CT Heat no abnormalities CT C-spine no abnormalities X-ray femur no fractures X-ray Tib/Fib no fractures ASSESSMENT/PLAN: 1. Acute Encephalopathy RESOLVED 2. Left Hip Pain a. 75mg Fentanyl in ED b. Ultram 50mg PO q6hr c. [place] 7.5/325 1tab PO Given Once 3. S/P Fall a. Patient on fall precautions <Emery Garnett - Last Filed: 12/31/18 18:32> Date of Encounter: 12/31/18 I saw evaluated and examined this patient and reviewed objective data including labs and my medical decision-making was reviewed with the Medical Student and Resident Physician. I agree with the documented findings, disposition and treatment plan as described except to any changes set forth below. We inde pendently had clud-cy-serc contact with the patient. Patient still having pain when moving but at rest there is no pain. Gen: NAD, CVS: RRR, lungs: CTAB, Ext: tenderness to left hip. Sensation preserved.
[2018-12-31] MEDS: *HR* HYDROcodone/Acet 5/325 mg TABLET PO PRN ×2 (15:18→22:49)
[2018-12-31] MEDS ORDERED: *HR* FentaNYL (PF) 100 MCG/2 ML VIAL IVP PRN (17:58)
[2018-12-31] MEDS: MOM Conc 10 ML UD.LIQ PO SCH (22:44)
[2018-12-31] MEDS ORDERED: *HR* LORazepam 1 MG TABLET PO PRN (22:56)
[2018-12-31] MEDS: Celecoxib 200 MG CAPSULE PO SCH (23:18)
[2018-12-31] MEDS: Sucralfate 1 GM TABLET PO SCH (23:18)
[2018-12-31] MEDS: Baclofen 10 MG TABLET PO SCH (23:18)
[2019-01-01] MEDS ORDERED: Milk and Molasses Enema 200 ML RC ONE ×3 (00:55→05:30)
[2019-01-01] MEDS: Saliva Stimulant 100ml BOTTLE PO PRN (02:19)
[2019-01-01] MEDS: *HR* Heparin 5,000 UNIT/ML VIAL SQ SCH ×3 (06:27→21:25)
[2019-01-01] MEDS: Sucralfate 1 GM TABLET PO SCH ×2 (08:43→21:25)
[2019-01-01] MEDS: Celecoxib 200 MG CAPSULE PO SCH ×2 (08:43→21:25)
[2019-01-01] MEDS: Metoprolol XL (24 HR) Succ 50 MG TAB.ER.24H PO SCH (08:43)
[2019-01-01] MEDS: *HR* HYDROcodone/Acet 5/325 mg TABLET PO PRN ×3 (08:43→23:07)
[2019-01-01 09:45] LABS: Basophils % 0.2 %; Eosinophils # 0.3 K/mcL (0.0-0.6); Hematocrit 39.5 % (35.3-44.9); Hemoglobin 12.4 g/dL (11.5-15.4); Immature Granulocytes % 0.4 % (0-4); Lymphocytes # 1.1 K/mcL (0.6-4.6); Lymphocytes % 7.8 %; Mean Corpuscular HGB Conc 31.4 g/dL (31.6-35.5); Mean Corpuscular Hemoglobin 27.1 pg (28.0-33.3); Mean Corpuscular Volume 86.2 fL (83.0-100.0); Mean Platelet Volume 8.8 fL (9.4-12.4); Monocytes # 1.4 K/mcL (0.0-1.3); Monocytes % 9.7 %; Neutrophils # 11.3 K/mcL (1.6-8.9); Platelet Count 328 K/mcL (140-400); Red Blood Count 4.58 M/mcL (3.82-4.97); Red Cell Distribution Width 14.6 % (11.5-14.5); Segmented Neutrophils % 79.9 %; White Blood Count 14.2 K/mcL (4.3-11.1)
[2019-01-01 10:00] LABS: BUN/Creatinine Ratio 14 (6-26); Blood Urea Nitrogen 8 mg/dL (8-23); Calcium 9.4 mg/dL (8.6-10.3); Carbon Dioxide 32 mEq/L (23-29); Chloride 97 mEq/L (98-107); Glucose 196 mg/dL (70-105); Osmolality,Calculated 282 (280-300); Potassium 3.4 mEq/L (3.5-5.1); Sodium 134 mEq/L (136-145); eGFR For African Americans > 60 (> 60); eGFR For Non-African Americans > 60 (> 60)
--- NOTE | 2019-01-01 12:54 | Internal Med Progress Note ---
Hospitalist Progress Note - Encounter Date of Encounter: 01/01/19 Time of Encounter: 12:52 - Subjective Interval History: Patient had episodes of constipation needing Milk and Molassess enema x3. She currently has some abdominal soreness after her fall prior to admission but overall her pains are improved. - Exam Vitals: Temp Pulse Resp BP Pulse Ox 98.4 F 82 18 120/63 93 01/01/19 11:22 01/01/19 11:22 01/01/19 11:22 01/01/19 11:22 01/01/19 11:22 Exam: GENERAL: NAD, A&O x3, pleasant and conversant although somewhat somnolent SKIN: No skin lesions or rashes, non-jaundiced with exception of few abrasions on her bilateral lower extremity EYES: EOMI, PERRLA, no sclera icterus HENT: Head atraumatic, no facial asymmetry, frontal and maxillary sinus non- tender, normal hearing, oropharynx and mucosa dry and without any exudates NECK: No cervical lymphadenopathy, trachea midline, thyroid is palpable does not appear enlarged LUNGS: vesicular breath sounds, clear to auscultation, no wheeze, rhonchi, rales or crackles. Non labored respirations HEART: Normal rate and rhythm, no murmurs or rubs ABDOMEN: soft, non-tender, non-distended, bowel sounds x 4 normoactive EXTRMITIES: No LE asymmetry, No LE edema, pedal pulses 1+ and radial pulses 2 + and equal bilaterally, left hip surgical scar noted healed examination of the right and left hip revealed no erythema warmth or swelling. Palpation of the left and right hip did not elicit pain. Patient deferred on range of motion testing citing pain. nurse joey chaperoned the exam NEURO: Speech and comprehension appears intact. PSYCH: Cooperative, non- anxious or irritable, mood and affect is appropriate - Assessment and Plan (1) Acute encephalopathy Current Visit: Yes Status: Acute Assessment and Plan: Patient was transiently encephalopathic after receiving 75 g of fentanyl, this morning she appears back to baseline was able to provide history. Work up including CT of the head and laboratory were unrevealing and unyielding. Resolved. She is back to taking her home [place]. (2) Left hip pain Current Visit: Yes Status: Chronic Assessment and Plan: Patient stated this monitored and unable to bear weight physical examination was unrevealing with regard to erythema warmth or swelling, radiograph of the left femur, pelvis, and two-view of the left tibia fibular no acute abnormalities. We will obtain radiograph of bilateral hip multiple views to better delineate any pathology (3) Status post fall Current Visit: Yes Status: Acute Assessment and Plan: Patient stated it was a mechanical fall will place on fall precaution PT/OT evaluated patient: recommends home health care, being coordinated. (4) Hyponatremia Current Visit: Yes Status: Acute (5) GERD (gastroesophageal reflux disease) Current Visit: Yes Status: Acute (6) COPD (chronic obstructive pulmonary disease) Current Visit: Yes Status: Chronic (7) HLD (hyperlipidemia) Current Visit: Yes Status: Chronic (8) HTN (hypertension) Current Visit: Yes Status: Chronic (9) DVT prophylaxis Current Visit: Yes Status: Acute - Time Spent with Patient Total time spent is greater than 50% in coordination of care (as documented) at patient's floor/unit and/or counseling patient: Internal Medicine: Result - Labs CBC & Chem 7: 01/01/19 09:25 01/01/19 09:25 Labs: Short CBC 01/01/19 Range/Units 09:25 WBC 14.2 H (4.3-11.1) K/mcL Hgb 12.4 (11.5-15.4) g/dL Hct 39.5 (35.3-44.9) % Plt Count 328 (140-400) K/mcL Neutrophils # 11.3 H (1.6-8.9) K/mcL BMP 01/01/19 09:25 Sodium 134 L Potassium 3.4 L Chloride 97 L Carbon Dioxide 32 H BUN 8 Creatinine 0.56 L Glucose 196 H Calcium 9.4 Consult Discharge Plan - Plan Referrals: NONE,PCP [Primary Care Provider] - (5) GERD (gastroesophageal reflux disease) Qualifiers: Esophagitis presence: esophagitis presence not specified Qualified Code(s): K21.9 - Gastro-esophageal reflux disease without esophagitis (6) COPD (chronic obstructive pulmonary disease) Qualifiers: COPD type: unspecified COPD Qualified Code(s): J44.9 - Chronic obstructive pulmonary disease, unspecified (7) HLD (hyperlipidemia) Qualifiers: Hyperlipidemia type: unspecified Qualified Code(s): E78.5 - Hyperlipidemia, unspecified (8) HTN (hypertension) Qualifiers: Hypertension type: essential hypertension Qualified Code(s): I10 - Essential (primary) hypertension
--- NOTE | 2019-01-01 13:36 | Discharge Summary ---
Date of Encounter: 01/01/19 Time of Encounter: 13:27 - Discharge Diagnosis (1) Acute encephalopathy Priority: Primary Status: Acute (2) Left hip pain Priority: Secondary Status: Chronic (3) Status post fall Priority: Secondary Status: Acute (4) Hyponatremia Priority: Secondary Status: Acute (5) GERD (gastroesophageal reflux disease) Priority: Secondary Status: Acute Qualifiers: Esophagitis presence: esophagitis presence not specified Qualified Code(s): K21.9 - Gastro-esophageal reflux disease without esophagitis (6) COPD (chronic obstructive pulmonary disease) Priority: Secondary Status: Chronic Qualifiers: COPD type: unspecified COPD Qualified Code(s): J44.9 - Chronic obstructive pulmonary disease, unspecified (7) HLD (hyperlipidemia) Priority: Secondary Status: Chronic Qualifiers: Hyperlipidemia type: unspecified Qualified Code(s): E78.5 - Hyperlipidemia, unspecified (8) HTN (hypertension) Priority: Secondary Status: Chronic Qualifiers: Hypertension type: essential hypertension Qualified Code(s): I10 - Essential (primary) hypertension (9) DVT prophylaxis Priority: Secondary Status: Acute Hospital course: Ms. Leahy is a 83 year old female history of hypertension hyperlipidemia and COPD GERD and prior fractures. She stated she had left hip athroplasty around September 2018 and was having her routine visits with the orthopedic surgeon where she sustained a fall yesterday. She denies any prodrome prior to the falls. She did state that after the fall she had difficulty weightbearing as such was referred to the ED to be evaluated. At the emergency department workup included CT of the cervical spine and CT of the head which was unrevealing and unyielding for any acute abnormality. She has also had radiograph of the left femur, tib/fib which were also negative for fracture. Due to her pain she was adminis tered 75 mcg of fentanyl per report at the ED and patient became transiently altered and hypersomnolent. This resolved shortly later. She was admitted for further management of acute pain. Patient was cautiously given pain medication and pain became alleviated. PT/OT saw patient and recommended home with home health care. Patient was discharged home with [facility] in stable condition. - Time Spent with Patient Total time spent providing and/or coordinating discharge services: - Discharge Medications Prescriptions: Continued Pravastatin Sodium [Pravachol] 20 mg PO DAILY Ranitidine HCl [Acid Insurance Coder] 150 mg PO BID Losartan/Hydrochlorothiazide [Losartan-Hctz 100-12.5 mg Tab] 1 tab PO DAILY Metoprolol Succinate 100 mg PO QAM Docusate Sodium [Dulcolax Stool Softener] 200 mg PO DAILY PRN PRN Reason: Constipation Baclofen [Lioresal] 10 mg PO HS Celecoxib [Celebrex] 200 mg PO BID cloNIDine HCl [Clonidine HCl] 0.05 mg PO DAILY PRN PRN Reason: BP >130 DULoxetine [Cymbalta] 30 mg PO QAM Gabapentin [Neurontin] 300 mg PO TID HYDROcodone/Acet 5/325 mg [[place] 5-325 mg] 1 tab PO TID PRN PRN Reason: Pain LORazepam [Ativan] 1 mg PO BID PRN PRN Reason: ANX Solifenacin Succinate 10 mg PO DAILY Sucralfate [Carafate] 1 gm PO BID Home Medications: Docusate Sodium [Dulcolax Stool Softener] 200 mg PO DAILY PRN 09/05/17 [History] Losartan/Hydrochlorothiazide [Losartan-Hctz 100-12.5 mg Tab] 1 tab PO DAILY 09/05/17 [History] Metoprolol Succinate 100 mg PO QAM 09/05/17 [History] Pravastatin Sodium [Pravachol] 20 mg PO DAILY 09/05/17 [History] Ranitidine HCl [Acid Insurance Coder] 150 mg PO BID 09/05/17 [History] Baclofen [Lioresal] 10 mg PO HS 12/30/18 [History] Celecoxib [Celebrex] 200 mg PO BID 12/30/18 [History] DULoxetine [Cymbalta] 30 mg PO QAM 12/30/18 [History] Gabapentin [Neurontin] 300 mg PO TID 12/30/18 [History] HYDROcodone/Acet 5/325 mg [[place] 5-325 mg] 1 tab PO TID PRN 12/30/18 [History] LORazepam [Ativan] 1 mg PO BID PRN 12/30/18 [History] Solifenacin Succinate 10 mg PO DAILY 12/30/18 [History] Sucralfate [Carafate] 1 gm PO BID 12/30/18 [History] cloNIDine HCl [Clonidine HCl] 0.05 mg PO DAILY PRN 12/30/18 [History] Allergies/Adverse Reactions: Allergy/AdvReac Type Severity Reaction Status Date / Time oxycodone [Oxycodone] Allergy Hallucinati Verified 12/30/18 21:36 ng Sulfa (Sulfonamide Allergy Hives Verified 12/30/18 21:36 Antibiotics) Penicillins AdvReac "BROKE Verified 12/30/18 21:36 OUT/JOINTS ACHED" Date of admission: 12/31/18 17:18 Primary care physician: PCP NONE Consults: 12/30/18 07:50 Consult to Occupational Therapy [CONS] Routine Comment: Evaluate, develop and implement POC Reason for Consult: s/p fall evaluate need for ECF placement for rehab Does patient have active BEDREST order?: No Is patient medically & hemodynamically stable?: Yes Patient assessed for mobility or mobilized this visit?: Yes Consult to Physical Therapy [CONS] Routine Comment: Evaluate, develop and implement POC Reason for Consult: s/p fall evaluate need for ECF placement for rehab Does patient have active BEDREST order?: No Is patient medically & hemodynamically stable?: Yes Patient assessed for mobility or mobilized this visit?: Yes 12/30/18 20:37 Consult to Statistician [CONS] Routine Reason for SW Consult: POSSIBLE DC PLANNING Discharging clinician: Emery Garnett - Constitutional Vitals: Temp Pulse Resp BP Pulse Ox 98.4 F 82 18 120/63 93 01/01/19 11:22 01/01/19 11:22 01/01/19 11:22 01/01/19 11:22 01/01/19 11:22 Exam: GENERAL: NAD, A&O x3, pleasant and conversant although somewhat somnolent SKIN: No skin lesions or rashes, non-jaundiced with exception of few abrasions on her bilateral lower extremity EYES: EOMI, PERRLA, no sclera icterus HENT: Head atraumatic, no facial asymmetry, frontal and maxillary sinus non- tender, normal hearing, oropharynx and mucosa dry and without any exudates NECK: No cervical lymphadenopathy, trachea midline, thyroid is palpable does not appear enlarged LUNGS: vesicular breath sounds, clear to auscultation, no wheeze, rhonchi, rales or crackles. Non labored respirations HEART: Normal rate and rhythm, no murmurs or rubs ABDOMEN: soft, non-tender, non-distended, bowel sounds x 4 normoactive EXTRMITIES: No LE asymmetry, No LE edema, pedal pulses 1+ and radial pulses 2 + and equal bilaterally, left hip surgical scar noted healed examination of the right and left hip revealed no erythema warmth or swelling. Palpation of the left and right hip did not elicit pain. Patient deferred on range of motion testing citing pain. nurse joey chaperoned the exam NEURO: Speech and comprehension appears intact. PSYCH: Cooperative, non- anxious or irritable, mood and affect is appropriate - Patient Status Disposition: Home Health Service Condition: Good Functional capacity at discharge: independent ambulation Overall status at discharge: patient is back to baseline - Discharge Instructions Follow Up With: NONE,PCP [Primary Care Provider] - - Diet and Activity Activity: as per physical therapy Diet: advance to your usual diet
--- NOTE | 2019-01-01 13:40 | Physician Discharge Referral ---
Home Health/Hosp Referral Info Transfer to: Home Health Provider in Charge Post Discharge: PCP - Diagnosis (1) Acute encephalopathy Priority: Primary Status: Acute (2) Left hip pain Priority: Secondary Status: Chronic (3) Status post fall Priority: Secondary Status: Acute (4) Hyponatremia Priority: Secondary Status: Acute (5) GERD (gastroesophageal reflux disease) Priority: Secondary Status: Acute (6) COPD (chronic obstructive pulmonary disease) Priority: Secondary Status: Chronic (7) HLD (hyperlipidemia) Priority: Secondary Status: Chronic (8) HTN (hypertension) Priority: Secondary Status: Chronic (9) DVT prophylaxis Priority: Secondary Status: Acute - Respiratory Orders Smoking Cessation: Smoking cessation has been advised. For more information, call the [place] Tobacco Quit Line at 8-133-ZQQP-NOW. - Services Needed Following services are medically necessary services: Nursing, Home Health Aide, Physical Therapy, Occupational Therapy - Transfer Medications Home Medications: Docusate Sodium [Dulcolax Stool Softener] 200 mg PO DAILY PRN 09/05/17 [History] Losartan/Hydrochlorothiazide [Losartan-Hctz 100-12.5 mg Tab] 1 tab PO DAILY 09/05/17 [History] Metoprolol Succinate 100 mg PO QAM 09/05/17 [History] Pravastatin Sodium [Pravachol] 20 mg PO DAILY 09/05/17 [History] Ranitidine HCl [Acid Collection Support Specialist] 150 mg PO BID 09/05/17 [History] Baclofen [Lioresal] 10 mg PO HS 12/30/18 [History] Celecoxib [Celebrex] 200 mg PO BID 12/30/18 [History] DULoxetine [Cymbalta] 30 mg PO QAM 12/30/18 [History] Gabapentin [Neurontin] 300 mg PO TID 12/30/18 [History] HYDROcodone/Acet 5/325 mg [[place] 5-325 mg] 1 tab PO TID PRN 12/30/18 [History] LORazepam [Ativan] 1 mg PO BID PRN 12/30/18 [History] Solifenacin Succinate 10 mg PO DAILY 12/30/18 [History] Sucralfate [Carafate] 1 gm PO BID 12/30/18 [History] cloNIDine HCl [Clonidine HCl] 0.05 mg PO DAILY PRN 12/30/18 [History] Allergies/Adverse Reactions: Allergy/AdvReac Type Severity Reaction Status Date / Time oxycodone [Oxycodone] Allergy Hallucinati Verified 12/30/18 21:36 ng Sulfa (Sulfonamide Allergy Hives Verified 12/30/18 21:36 Antibiotics) Penicillins AdvReac "BROKE Verified 12/30/18 21:36 OUT/JOINTS ACHED" Certification: Further, I certify that my clinical findings support that this patient is homebo und (i.e. absences from home require considerable and taxing effort and are for medical reasons or [facility] services or infrequently or short duration when for other reasons) because: Homebound Reason: Patient requires assistance of a person or device to safely leave home, Leaving home requires considerable and taxing effort due to condition Attestation: My signature below is to certify that this patient is under my care and that I, or nurse practitioner, or a physician's printer assistant working with me, has a [id number] encounter with this patient.
[2019-01-01] MEDS: MOM Conc 10 ML UD.LIQ PO SCH (21:24)
[2019-01-01] MEDS: Baclofen 10 MG TABLET PO SCH (21:25)
[2019-01-02 02:58] LABS: Hematocrit 34.9 % (35.3-44.9); Mean Corpuscular HGB Conc 31.5 g/dL (31.6-35.5); Mean Corpuscular Hemoglobin 27.2 pg (28.0-33.3); Mean Corpuscular Volume 86.4 fL (83.0-100.0); Platelet Count 285 K/mcL (140-400); Red Blood Count 4.04 M/mcL (3.82-4.97); Red Cell Distribution Width 14.5 % (11.5-14.5)
[2019-01-02 03:16] LABS: BUN/Creatinine Ratio 21 (6-26); Blood Urea Nitrogen 10 mg/dL (8-23); Carbon Dioxide 29 mEq/L (23-29); Chloride 98 mEq/L (98-107); Potassium 3.5 mEq/L (3.5-5.1); Sodium 133 mEq/L (136-145); eGFR For African Americans > 60 (> 60)
[2019-01-02 03:17] LABS: Calcium 8.7 mg/dL (8.6-10.3); Glucose 148 mg/dL (70-105); Osmolality,Calculated 278 (280-300); eGFR For Non-African Americans > 60 (> 60)
[2019-01-02] MEDS: *HR* Heparin 5,000 UNIT/ML VIAL SQ SCH (05:33)
[2019-01-02 06:55] VITALS: BP 154/78
[2019-01-02] MEDS: Celecoxib 200 MG CAPSULE PO SCH (09:22)
[2019-01-02] MEDS: Metoprolol XL (24 HR) Succ 50 MG TAB.ER.24H PO SCH (09:22)
[2019-01-02] MEDS: Sucralfate 1 GM TABLET PO SCH (09:23)
[2019-01-02] MEDS: *HR* HYDROcodone/Acet 5/325 mg TABLET PO PRN (09:23)
--- NOTE | 2019-01-02 10:28 | Event Note ---
Date of Encounter: 01/02/19 Time of Encounter: 10:27 Patient seen and examined, no acute issues. VS: reviewed. No acute distress, pleasant. CVS: RRR, lungs clear, ext no edema. Plan for discharge today.
== END 2019-01-02 11:28 | disposition home health service (06) | DRG 71 ==
LOC: EMEROOARM 19:30 → 3NENU 19:30 → SUATTDRO 12-30 04:37 → 3NENU 12-30 05:09
PROVIDERS: ADMIT Pharmacist; ATTEND Student in an Organized Health Care Education/Training Program

== ENCOUNTER 2019-02-18 17:18 | Inpatient (IN) ==
[2019-02-18] MEDS ORDERED: 0.9 % Sodium Chloride 1,000 ML IVC ONE ×2 (17:27→19:02)
[2019-02-18] MEDS ORDERED: *HR* FentaNYL (PF) 100 MCG/2 ML VIAL IVP ONE (18:01)
[2019-02-18 18:24] LABS: Basophils % 0.4 %; Eosinophils # 0.1 K/mcL (0.0-0.6); Hematocrit 39.6 % (35.3-44.9); Hemoglobin 13.3 g/dL (11.5-15.4); Immature Granulocytes % 0.3 % (0-4); Lymphocytes # 1.4 K/mcL (0.6-4.6); Lymphocytes % 12.8 %; Mean Corpuscular HGB Conc 33.6 g/dL (31.6-35.5); Mean Corpuscular Hemoglobin 28.4 pg (28.0-33.3); Mean Corpuscular Volume 84.4 fL (83.0-100.0); Mean Platelet Volume 8.4 fL (9.4-12.4); Monocytes # 1.1 K/mcL (0.0-1.3); Neutrophils # 8.1 K/mcL (1.6-8.9); Platelet Count 370 K/mcL (140-400); Red Blood Count 4.69 M/mcL (3.82-4.97); Red Cell Distribution Width 14.2 % (11.5-14.5); Segmented Neutrophils % 75.5 %; White Blood Count 10.7 K/mcL (4.3-11.1)
[2019-02-18 18:31] LABS: INR 1.1; Prothrombin Time 12.3 Seconds (9.4-12.1)
[2019-02-18 18:34] LABS: Activated Partial Thrombo Time 32.3 Seconds (26.0-36.0)
[2019-02-18 18:45] LABS: BUN/Creatinine Ratio 11 (6-26); Blood Urea Nitrogen 6 mg/dL (8-23); Carbon Dioxide 27 mEq/L (23-29); Chloride 96 mEq/L (98-107); Glucose 104 mg/dL (70-105); Magnesium 1.7 mg/dL (1.6-2.6); Osmolality,Calculated 274 (280-300); Potassium 3.2 mEq/L (3.5-5.1); Sodium 133 mEq/L (136-145); eGFR For African Americans > 60 (> 60); eGFR For Non-African Americans > 60 (> 60)
[2019-02-18 18:46] LABS: Troponin I < 0.03 ng/mL (< 0.04)
[2019-02-18 18:50] LABS: Bilirubin,Urine Negative (Negative); Blood,Urine Negative (Negative); Clarity,Urine Clear (Clear); Color,Urine Yellow (Yellow); Glucose,Urine (UA) Normal (Normal); Ketones,Urine Negative (Negative); Leukocyte Esterase,Urine Negative (Negative); Nitrite,Urine Negative (Negative); PH,Urine 6.5 pH Units (5.0-8.0); Protein,Urine Negative (Neg-Trace); Specific Gravity,Urine 1.011 (1.010-1.025); Urobilinogen,Urine Normal (Normal)
[2019-02-18 19:00] LABS: Thyroid Stimulating Hormone 0.724 mcIU/mL (0.340-5.600)
[2019-02-18] MEDS ORDERED: Potassium Chloride Elixir 20 MEQ/15 ML UDC PO ONE (19:03)
[2019-02-18] MEDS ORDERED: *HR* Metoprolol 5 MG/5 ML VIAL IVP ONE (20:15)
[2019-02-19] MEDS ORDERED: Naloxone 0.4 MG/ML INJ IVP PRN (01:29)
[2019-02-19] MEDS ORDERED: Menthol 9.1 MG LOZENGE PO PRN (01:30)
[2019-02-19 02:25] LABS: Basophils # 0.1 K/mcL (0.0-0.2); Basophils % 0.6 %; Eosinophils # 0.2 K/mcL (0.0-0.6); Eosinophils % 1.8 %; Hematocrit 37.2 % (35.3-44.9); Hemoglobin 12.2 g/dL (11.5-15.4); Immature Granulocytes % 0.2 % (0-4); Lymphocytes # 1.7 K/mcL (0.6-4.6); Lymphocytes % 20.4 %; Mean Corpuscular HGB Conc 32.8 g/dL (31.6-35.5); Mean Corpuscular Hemoglobin 27.7 pg (28.0-33.3); Mean Corpuscular Volume 84.5 fL (83.0-100.0); Mean Platelet Volume 8.4 fL (9.4-12.4); Monocytes % 11.6 %; Neutrophils # 5.4 K/mcL (1.6-8.9); Platelet Count 352 K/mcL (140-400); Red Cell Distribution Width 14.2 % (11.5-14.5); Segmented Neutrophils % 65.4 %; White Blood Count 8.3 K/mcL (4.3-11.1)
[2019-02-19 02:42] LABS: BUN/Creatinine Ratio 10 (6-26); Blood Urea Nitrogen 5 mg/dL (8-23); Calcium 9.3 mg/dL (8.6-10.3); Carbon Dioxide 24 mEq/L (23-29); Chloride 103 mEq/L (98-107); Glucose 124 mg/dL (70-105); Osmolality,Calculated 279 (280-300); Potassium 3.8 mEq/L (3.5-5.1); Sodium 135 mEq/L (136-145); eGFR For African Americans > 60 (> 60); eGFR For Non-African Americans > 60 (> 60)
[2019-02-19 02:59] LABS: Triiodothyronine (T3) Free 3.6 pg/mL (2.50-3.90)
[2019-02-19] MEDS: Metoprolol XL (24 HR) Succ 50 MG TAB.ER.24H PO SCH (07:55)
[2019-02-19] MEDS ORDERED: Isovue-370 500 ML BOTTLE IVP ONE (08:14)
[2019-02-19 09:13] LABS: Amphetamine Screen,Urine Negative ng/mL (Cutoff=1000); Barbiturate Screen,Urine Negative ng/mL (Cutoff=200); Benzodiazepines Screen,Urine Negative ng/mL (Cutoff=200); Cannabinoid Screen,Urine Negative ng/mL (Cutoff = 50); Cocaine Screen,Urine Negative ng/mL (Cutoff= 300); Opiate Screen,Urine Positive ng/mL (Cutoff=300); Phencyclidine Screen,Urine Negative ng/mL (Cutoff=25)
[2019-02-19] MEDS: *HR* HYDROcodone/Acet 5/325 mg TABLET PO PRN ×2 (11:33→22:00)
[2019-02-20] MEDS: Azelastine 0.1% Nasal Spray 30 ML BOTTLE NS SCH ×3 (01:54→20:28)
[2019-02-20] MEDS: *HR* HYDROcodone/Acet 5/325 mg TABLET PO PRN ×3 (05:46→20:31)
[2019-02-20] MEDS: Metoprolol XL (24 HR) Succ 50 MG TAB.ER.24H PO SCH (08:19)
[2019-02-20] MEDS ORDERED: *HR* LORazepam 1 MG TABLET PO PRN (13:14)
[2019-02-20] MEDS: Losartan/HCTZ 50-12.5 TABLET PO SCH (14:14)
[2019-02-20] MEDS: Famotidine 20 MG TABLET PO SCH (17:11)
[2019-02-20] MEDS: Sucralfate 1 GM TABLET PO SCH (20:28)
[2019-02-21] MEDS ORDERED: levoFLOXacin 750 MG TABLET PO SCH (09:15)
[2019-02-21] MEDS: Sucralfate 1 GM TABLET PO SCH (10:25)
[2019-02-21] MEDS: *HR* HYDROcodone/Acet 5/325 mg TABLET PO PRN (10:25)
[2019-02-21] MEDS: Famotidine 20 MG TABLET PO SCH (10:25)
[2019-02-21] MEDS: Losartan/HCTZ 50-12.5 TABLET PO SCH (10:25)
[2019-02-21] MEDS: Metoprolol XL (24 HR) Succ 50 MG TAB.ER.24H PO SCH (10:25)
[2019-02-21] MEDS: Azelastine 0.1% Nasal Spray 30 ML BOTTLE NS SCH (10:28)
[2019-02-21 11:25] VITALS: BP 116/84
== END 2019-02-21 16:19 | disposition home health service (06) | DRG 194 ==
LOC: EMEROOARM 17:18 → 3BNU 17:18 → SUATTDRO 22:13 → 3BNU 02-19 00:10
PROVIDERS: ADMIT Internal Medicine; ATTEND Internal Medicine